=== PATIENT | male | born 1965 | race African-American/Black ===

== ENCOUNTER 2021-09-01 10:31 | Inpatient (IN) | payer BC ==
[2021-09-01] MEDS ORDERED: FENOFIBRIC ACID 45 MG CAP PO ONE (11:17)
[2021-09-01] MEDS ORDERED: DEXAMETHASONE SOD PHOSPHATE 10 MG/1 ML VIAL IVPUSH ONE (11:17)
[2021-09-01] MEDS ORDERED: BUDESONIDE 0.25 MG/2ML INH SUSP VIAL NEB ONE ×2 (11:18→14:23)
[2021-09-01] MEDS ORDERED: DEXAMETHASONE SOD PHOSPHATE 10 MG/1 ML VIAL ONE (11:33)
[2021-09-01] MEDS ORDERED: ALBUTEROL SO4 2.5/IPRATROPIUM 0.5 INH SOL 3 ML VIAL.NEB. NEB ONE (11:33)
[2021-09-01] MEDS: ALBUTEROL SO4 2.5/IPRATROPIUM 0.5 INH SOL 3 ML VIAL.NEB. NEB SCH ×4 (11:40→12:15)
[2021-09-01 13:07] LABS: VENOUS BASE EXCESS -0.7 mmol/L (-2-2); VENOUS O2 SATURATION 17.1 % (70-80); VENOUS PH 7.295 (7.310-7.410)
[2021-09-01 13:10] LABS: BASO % 0.4 % (0-2.0); HEMATOCRIT 44.9 % (35.4-49); HEMOGLOBIN 15.1 GM/dL (11.7-16.9); LYMPH % 14.7 % (8-40); MCH 29.4 pg (25.7-33.7); MCHC 33.7 g/dl (32.0-35.9); MEAN CELL VOLUME 87.3 fl (80-96); MEAN PLT VOLUME 7.8 fl (7.5-11.1); MONO % 6.4 % (3.8-10.2); NEUT % 78.5 % (42.8-82.8); PLATELET COUNT 195 10^3/uL (134-434); RBC 5.14 M/mm3 (4.00-5.60); RDW 15.5 % (11.9-15.9); WHITE BLOOD COUNT 8.4 K/mm3 (4.0-10.0)
[2021-09-01 13:17] LABS: INR 1.04 (0.83-1.09); PROTHROMBIN TIME (PATIENT) 12.2 SEC (9.7-13.0)
[2021-09-01 13:20] LABS: ACTIVATED PTT 29.7 SECONDS (25.2-36.5)
[2021-09-01] MEDS ORDERED: SODIUM CHLORIDE 0.9% 500 ML INFUS.BAG IV ONE (13:24)
[2021-09-01 13:30] LABS: CHLORIDE 100 mmol/L (98-107); SODIUM 136 mmol/L (136-145)
[2021-09-01 13:34] LABS: ALBUMIN 2.7 g/dl (3.4-5.0); ANION GAP 12 MMOL/L (8-16); CALCIUM 8.2 mg/dL (8.5-10.1); CO2 25 mmol/L (21-32)
[2021-09-01 13:35] LABS: BLOOD UREA NITROGEN 25.4 mg/dL (7-18); GLUCOSE,RANDOM 276 mg/dL (74-106); MAGNESIUM 2.9 mg/dL (1.8-2.4)
[2021-09-01 13:38] LABS: SGOT/AST 132 U/L (15-37); SGPT/ALT 111 U/L (13-61)
[2021-09-01 13:39] LABS: BILIRUBIN,TOTAL 1.1 mg/dL (0.2-1); TOT PROT 7.5 g/dl (6.4-8.2)
[2021-09-01 13:40] LABS: ALK PHOS 114 U/L (45-117)
[2021-09-01 13:43] LABS: N-TERMINAL BNP 89.7 pg/ml (5-125)
[2021-09-01] MEDS ORDERED: ACETAMINOPHEN 1000 MG/100 ML BAG IVPB ONE (14:02)
[2021-09-01] MEDS ORDERED: AZITHROMYCIN IVPB 500 MG in DEXTROSE 5%-WATER - 250 ML IVPB ONE (14:26)
[2021-09-01] MEDS ORDERED: FAMOTIDINE 20 MG/50 ML IVPB 20 MG/50 ML MG IVPB ONE ×2 (14:26→14:57)
[2021-09-01] MEDS ORDERED: ACETAMINOPHEN INJECTION 100 ML IVPB ONE (14:56)
[2021-09-01] MEDS ORDERED: AZITHROMYCIN IVPB 500 MG/250 ML BAG IVPB ONE (14:57)
[2021-09-01] MEDS ORDERED: MONTELUKAST NA 10 MG TABLET PO ONE (15:29)
[2021-09-01 15:58] LABS: EPI CELLS 14 /uL (0-25.1); HYALINE CASTS 5 /uL (0-3.1); PH,URINE 5.5 (5.0-8.0); URINE APPEARANCE CLEAR; URINE BACTERIA 28 /uL (0-1359); URINE BILIRUBIN NEGATIVE (NEGATIVE); URINE COLOR YELLOW; URINE GLUCOSE (UA) 3+ (NEGATIVE); URINE KETONE 1+ (NEGATIVE); URINE LEUK ESTERASE NEGATIVE (NEGATIVE); URINE NITRITE NEGATIVE (NEGATIVE); URINE PROTEIN 3+ (NEGATIVE); URINE RBC 9 /uL (0-23.9); URINE WBC 21 /uL (0-25.8)
[2021-09-01] MEDS ORDERED: MONTELUKAST NA 10 MG TABLET ONE (17:04)
[2021-09-01] MEDS ORDERED: SODIUM CHLORIDE 1,000 ML IV SCH ×2 (18:00)
[2021-09-01 19:17] LABS: YEAST NONE SEEN (NEGATIVE)
[2021-09-01] MEDS ORDERED: REMDESIVIR 200 MG in SODIUM CHLORIDE 250 ML IVPB ONE (21:15)
[2021-09-01] MEDS: INSULIN (LEVEMIR) 100 UNITS/ML UNITS SQ SCH (22:13)
[2021-09-01] MEDS: ATORVASTATIN CA 20 MG TABLET (FP) PO SCH (22:13)
[2021-09-01] MEDS: LABETALOL HCL 200 MG TABLET (FP) PO SCH (22:13)
[2021-09-01] MEDS: ZINC SULFATE 220 MG CAPSULE (FP) PO SCH (22:13)
[2021-09-01] MEDS: INSULIN SLIDING SCALE (NOVOLOG) 1 VIAL SQ SCH (22:14)
[2021-09-01] MEDS: ASCORBIC ACID 500 MG TABLET (FP) PO SCH (22:14)
[2021-09-01] MEDS: HEPARIN NA (PORCINE) 5,000 UNITS/ML 1ML VIAL SQ SCH (22:39)
[2021-09-02] MEDS: INSULIN SLIDING SCALE (NOVOLOG) 1 VIAL SQ SCH ×4 (06:34→21:06)
[2021-09-02] MEDS: INSULIN (LEVEMIR) 100 UNITS/ML UNITS SQ SCH ×2 (06:34→21:05)
[2021-09-02] MEDS: HEPARIN NA (PORCINE) 5,000 UNITS/ML 1ML VIAL SQ SCH ×3 (06:34→15:08)
[2021-09-02 08:10] LABS: BASO % 0.6 % (0-2.0); HEMOGLOBIN 13.4 GM/dL (11.7-16.9); LYMPH % 6.5 % (8-40); MCH 29.9 pg (25.7-33.7); MCHC 34.2 g/dl (32.0-35.9); MEAN CELL VOLUME 87.3 fl (80-96); MONO % 7.8 % (3.8-10.2); NEUT % 85.1 % (42.8-82.8); PLATELET COUNT 223 10^3/uL (134-434); RBC 4.47 M/mm3 (4.00-5.60); RDW 15.4 % (11.9-15.9); WHITE BLOOD COUNT 7.3 K/mm3 (4.0-10.0)
[2021-09-02 08:26] LABS: INR 1.01 (0.83-1.09); PROTHROMBIN TIME (PATIENT) 11.3 SEC (9.7-13.0)
[2021-09-02 08:28] LABS: ACTIVATED PTT 27.5 SECONDS (25.2-36.5)
[2021-09-02] MEDS ORDERED: ALBUTEROL SO4 HFA INHALER IH PRN (08:46)
[2021-09-02 08:53] LABS: CALCIUM 7.6 mg/dL (8.5-10.1)
[2021-09-02 08:54] LABS: ALBUMIN 2.3 g/dl (3.4-5.0); BLOOD UREA NITROGEN 34.4 mg/dL (7-18); MAGNESIUM 3.1 mg/dL (1.8-2.4)
[2021-09-02 08:57] LABS: BILIRUBIN,TOTAL 0.7 mg/dL (0.2-1); CREATININE 1.9 mg/dL (0.55-1.3); TOT PROT 6.2 g/dl (6.4-8.2)
[2021-09-02] MEDS: DEXAMETHASONE SOD PHOSPHATE 4 MG/1 ML VIAL IVPUSH SCH (09:31)
[2021-09-02] MEDS: FAMOTIDINE 20 MG/50 ML IVPB 20 MG/50 ML MG IVPB SCH ×2 (09:32→21:03)
[2021-09-02] MEDS ORDERED: DEXAMETHASONE SOD PHOSPHATE 4 MG/1 ML VIAL IVPUSH SCH (10:00)
[2021-09-02] MEDS ORDERED: CEFTRIAXONE 1 GM in DEXTROSE 5%-WATER - 50 ML IVPB SCH (10:00)
[2021-09-02] MEDS ORDERED: AZITHROMYCIN IVPB 500 MG/250 ML BAG IVPB SCH (10:00)
[2021-09-02] MEDS ORDERED: DEXTROSE 5%-WATER 100 ML IVPB ONE (10:41)
[2021-09-02] MEDS: CEFTRIAXONE 2 GM in DEXTROSE 5%-WATER 100 ML IVPB SCH (10:49)
[2021-09-02] MEDS: NAPH,MB-DB/K PH,MBDB POWDER PACKET PO SCH ×2 (10:50→21:04)
[2021-09-02] MEDS: amLODIPine BESYLATE 10 MG TABLET (FP) PO SCH (10:50)
[2021-09-02] MEDS: LABETALOL HCL 200 MG TABLET (FP) PO SCH ×2 (10:50→21:04)
[2021-09-02] MEDS: ASCORBIC ACID 500 MG TABLET (FP) PO SCH ×2 (10:50→21:04)
[2021-09-02] MEDS: ZINC SULFATE 220 MG CAPSULE (FP) PO SCH ×2 (10:50→21:04)
[2021-09-02] MEDS: AZITHROMYCIN IVPB 500 MG/250 ML BAG IVPB SCH (10:51)
[2021-09-02] MEDS: BUDESONIDE/FORMETEROL FUMARATE 160/4.5 mcg INHALER IH SCH ×2 (10:51→21:07)
[2021-09-02] MEDS: guaiFENesin 200 MG/10 ML 10 ML UNIT-DOSE CUPS PO PRN ×2 (12:24→21:04)
[2021-09-02] MEDS ORDERED: PT OWN MED DRAWER 7, Y5N ONE ×3 (13:55→22:24)
[2021-09-02] MEDS ORDERED: TOCILIZUMAB (ACTEMRA) 200 MG/10 ML VIAL IVPB ONE (15:15)
[2021-09-02] MEDS ORDERED: SODIUM CHLORIDE IVPB ONE (16:00)
[2021-09-02] MEDS ORDERED: TOCILIZUMAB IVPB ONE (16:00)
[2021-09-02] MEDS ORDERED: LIDOCAINE VISCOUS 2% ORAL/TOP 15 ML UNIT-DOSE CUP MM ONE (16:08)
[2021-09-02] MEDS ORDERED: chlorproMAZINE HCL 25 MG TABLET PO ONE (16:09)
[2021-09-02] MEDS ORDERED: LIDOCAINE VISCOUS 2% ORAL/TOP 15 ML UNIT-DOSE CUP MM PRN (16:11)
[2021-09-02] MEDS: ALBUTEROL SO4 HFA INHALER IH SCH ×2 (17:00→21:04)
[2021-09-02] MEDS: ATORVASTATIN CA 20 MG TABLET (FP) PO SCH (21:04)
[2021-09-02] MEDS: ENOXAPARIN NA (PORCINE) 40 MG/0.4 ML DISP.SYRIN SQ SCH (21:06)
[2021-09-02] MEDS: REMDESIVIR 100 MG in SODIUM CHLORIDE 250 ML IVPB SCH (21:07)
[2021-09-03] MEDS: INSULIN (LEVEMIR) 100 UNITS/ML UNITS SQ SCH ×2 (06:50→22:14)
[2021-09-03] MEDS: INSULIN SLIDING SCALE (NOVOLOG) 1 VIAL SQ SCH ×4 (06:50→22:25)
[2021-09-03] MEDS: ALBUTEROL SO4 HFA INHALER IH SCH ×4 (08:05→22:13)
[2021-09-03 08:48] LABS: BASO % 0.6 % (0-2.0); HEMATOCRIT 36.4 % (35.4-49); HEMOGLOBIN 12.4 GM/dL (11.7-16.9); LYMPH % 9.5 % (8-40); MCH 29.6 pg (25.7-33.7); MCHC 34.1 g/dl (32.0-35.9); MEAN CELL VOLUME 86.8 fl (80-96); MEAN PLT VOLUME 8.1 fl (7.5-11.1); MONO % 8.8 % (3.8-10.2); NEUT % 81.1 % (42.8-82.8); PLATELET COUNT 285 10^3/uL (134-434); RDW 15.7 % (11.9-15.9); WHITE BLOOD COUNT 6.9 K/mm3 (4.0-10.0)
[2021-09-03 09:13] LABS: ALBUMIN 2.2 g/dl (3.4-5.0); CALCIUM 7.8 mg/dL (8.5-10.1)
[2021-09-03 09:14] LABS: MAGNESIUM 3.5 mg/dL (1.8-2.4)
[2021-09-03 09:16] LABS: CREATININE 1.9 mg/dL (0.55-1.3); PHOSPHOROUS 3.5 mg/dL (2.5-4.9)
[2021-09-03 09:17] LABS: BILIRUBIN,TOTAL 0.5 mg/dL (0.2-1)
[2021-09-03] MEDS: BUDESONIDE/FORMETEROL FUMARATE 160/4.5 mcg INHALER IH SCH ×2 (09:50→22:15)
[2021-09-03] MEDS ORDERED: PT OWN MED DRAWER 7, Y5N ONE ×5 (09:54→21:48)
[2021-09-03] MEDS ORDERED: DEXTROSE 5%-WATER 100 ML IVPB ONE (09:55)
[2021-09-03] MEDS: LABETALOL HCL 200 MG TABLET (FP) PO SCH ×2 (10:22→22:14)
[2021-09-03] MEDS: DEXAMETHASONE SOD PHOSPHATE 4 MG/1 ML VIAL IVPUSH SCH (10:22)
[2021-09-03] MEDS: amLODIPine BESYLATE 10 MG TABLET (FP) PO SCH (10:22)
[2021-09-03] MEDS: ZINC SULFATE 220 MG CAPSULE (FP) PO SCH ×2 (10:22→22:14)
[2021-09-03] MEDS: ASCORBIC ACID 500 MG TABLET (FP) PO SCH ×2 (10:23→22:14)
[2021-09-03] MEDS: ENOXAPARIN NA (PORCINE) 40 MG/0.4 ML DISP.SYRIN SQ SCH ×2 (10:23→22:14)
[2021-09-03] MEDS: CEFTRIAXONE 2 GM in DEXTROSE 5%-WATER 100 ML IVPB SCH (10:23)
[2021-09-03] MEDS: FAMOTIDINE 20 MG/50 ML IVPB 20 MG/50 ML MG IVPB SCH ×2 (10:24→22:19)
[2021-09-03] MEDS: AZITHROMYCIN IVPB 500 MG/250 ML BAG IVPB SCH (10:24)
[2021-09-03] MEDS: ATORVASTATIN CA 20 MG TABLET (FP) PO SCH (22:14)
[2021-09-03] MEDS: REMDESIVIR 100 MG in SODIUM CHLORIDE 250 ML IVPB SCH (22:29)
[2021-09-04] MEDS: INSULIN (LEVEMIR) 100 UNITS/ML UNITS SQ SCH ×2 (06:52→22:05)
[2021-09-04] MEDS: INSULIN SLIDING SCALE (NOVOLOG) 1 VIAL SQ SCH ×4 (06:53→22:05)
[2021-09-04 08:14] LABS: HEMATOCRIT 38.7 % (35.4-49); HEMOGLOBIN 13.1 GM/dL (11.7-16.9); MCH 29.7 pg (25.7-33.7); MEAN CELL VOLUME 87.3 fl (80-96); PLATELET COUNT 341 10^3/uL (134-434); RBC 4.43 M/mm3 (4.00-5.60); RDW 15.6 % (11.9-15.9); WHITE BLOOD COUNT 8.8 K/mm3 (4.0-10.0)
[2021-09-04 08:43] LABS: ALBUMIN 2.2 g/dl (3.4-5.0); BLOOD UREA NITROGEN 39.5 mg/dL (7-18)
[2021-09-04 08:44] LABS: MAGNESIUM 3.3 mg/dL (1.8-2.4)
[2021-09-04 08:45] LABS: PHOSPHOROUS 2.9 mg/dL (2.5-4.9)
[2021-09-04 08:46] LABS: BILIRUBIN,TOTAL 0.5 mg/dL (0.2-1); CREATININE 1.8 mg/dL (0.55-1.3)
[2021-09-04] MEDS ORDERED: DEXTROSE 5%-WATER 100 ML IVPB ONE (09:14)
[2021-09-04] MEDS: ENOXAPARIN NA (PORCINE) 40 MG/0.4 ML DISP.SYRIN SQ SCH ×2 (09:21→22:05)
[2021-09-04] MEDS: ASCORBIC ACID 500 MG TABLET (FP) PO SCH ×3 (09:21→22:05)
[2021-09-04] MEDS: LABETALOL HCL 200 MG TABLET (FP) PO SCH ×2 (09:21→22:06)
[2021-09-04] MEDS: amLODIPine BESYLATE 10 MG TABLET (FP) PO SCH ×2 (09:21→09:38)
[2021-09-04] MEDS: ZINC SULFATE 220 MG CAPSULE (FP) PO SCH ×2 (09:21→22:04)
[2021-09-04] MEDS: DEXAMETHASONE SOD PHOSPHATE 4 MG/1 ML VIAL IVPUSH SCH (09:21)
[2021-09-04] MEDS: ALBUTEROL SO4 HFA INHALER IH SCH ×4 (09:22→22:06)
[2021-09-04] MEDS: FAMOTIDINE 20 MG/50 ML IVPB 20 MG/50 ML MG IVPB SCH ×3 (09:23→22:17)
[2021-09-04 09:27] LABS: ANISOCYTOSIS 1+; MACROCYTOSIS 0; PLATELET ESTIMATE NORMAL
[2021-09-04] MEDS: CEFTRIAXONE 2 GM in DEXTROSE 5%-WATER 100 ML IVPB SCH (09:28)
[2021-09-04] MEDS: AZITHROMYCIN IVPB 500 MG/250 ML BAG IVPB SCH (10:05)
[2021-09-04] MEDS: BUDESONIDE/FORMETEROL FUMARATE 160/4.5 mcg INHALER IH SCH ×2 (10:05→22:18)
[2021-09-04] MEDS ORDERED: PT OWN MED DRAWER 7, Y5N ONE (21:58)
[2021-09-04] MEDS: ATORVASTATIN CA 20 MG TABLET (FP) PO SCH (22:05)
[2021-09-04] MEDS: REMDESIVIR 100 MG in SODIUM CHLORIDE 250 ML IVPB SCH (22:06)
[2021-09-05] MEDS: INSULIN (LEVEMIR) 100 UNITS/ML UNITS SQ SCH ×2 (06:16→22:23)
[2021-09-05] MEDS: INSULIN SLIDING SCALE (NOVOLOG) 1 VIAL SQ SCH ×4 (06:17→22:24)
[2021-09-05 07:59] LABS: BASO % 0.6 % (0-2.0); EOS % 0.1 % (0-4.5); HEMATOCRIT 40.1 % (35.4-49); HEMOGLOBIN 13.5 GM/dL (11.7-16.9); MCH 29.7 pg (25.7-33.7); MCHC 33.7 g/dl (32.0-35.9); MEAN CELL VOLUME 88.1 fl (80-96); MEAN PLT VOLUME 7.5 fl (7.5-11.1); MONO % 8.2 % (3.8-10.2); NEUT % 81.1 % (42.8-82.8); PLATELET COUNT 377 10^3/uL (134-434); RBC 4.55 M/mm3 (4.00-5.60); RDW 15.8 % (11.9-15.9); WHITE BLOOD COUNT 10.3 K/mm3 (4.0-10.0)
[2021-09-05 08:23] LABS: ALBUMIN 2.2 g/dl (3.4-5.0); CALCIUM 8.1 mg/dL (8.5-10.1); CREATININE 1.6 mg/dL (0.55-1.3); PHOSPHOROUS 2.8 mg/dL (2.5-4.9)
[2021-09-05 08:24] LABS: BILIRUBIN,TOTAL 0.5 mg/dL (0.2-1); BLOOD UREA NITROGEN 36.8 mg/dL (7-18); MAGNESIUM 3.2 mg/dL (1.8-2.4)
[2021-09-05 08:54] LABS: ANISOCYTOSIS 0; HELMET CELLS 0; HOWELL-JOLLY BODIES 0; MACROCYTOSIS 0; OVALOCYTE 0; PLATELET ESTIMATE NORMAL; ROULEAU 0; SICKELED CELLS 0; TARGET CELLS 0; TEAR DROP CELLS 0; TOXIC GRANULATION 0
[2021-09-05] MEDS ORDERED: DEXTROSE 5%-WATER 100 ML IVPB ONE (09:44)
[2021-09-05] MEDS: DEXAMETHASONE SOD PHOSPHATE 4 MG/1 ML VIAL IVPUSH SCH (09:54)
[2021-09-05] MEDS: FAMOTIDINE 20 MG/50 ML IVPB 20 MG/50 ML MG IVPB SCH ×3 (09:54→22:44)
[2021-09-05] MEDS: ASCORBIC ACID 500 MG TABLET (FP) PO SCH ×3 (09:55→22:23)
[2021-09-05] MEDS: ALBUTEROL SO4 HFA INHALER IH SCH ×4 (09:55→20:02)
[2021-09-05] MEDS: ZINC SULFATE 220 MG CAPSULE (FP) PO SCH ×2 (09:55→22:23)
[2021-09-05] MEDS: ENOXAPARIN NA (PORCINE) 40 MG/0.4 ML DISP.SYRIN SQ SCH ×2 (09:55→22:23)
[2021-09-05] MEDS: LABETALOL HCL 200 MG TABLET (FP) PO SCH ×2 (09:57→22:23)
[2021-09-05] MEDS: amLODIPine BESYLATE 10 MG TABLET (FP) PO SCH (09:57)
[2021-09-05] MEDS: BUDESONIDE/FORMETEROL FUMARATE 160/4.5 mcg INHALER IH SCH ×2 (09:57→22:25)
[2021-09-05] MEDS: CEFTRIAXONE 2 GM in DEXTROSE 5%-WATER 100 ML IVPB SCH (10:54)
[2021-09-05] MEDS: AZITHROMYCIN IVPB 500 MG/250 ML BAG IVPB SCH (12:16)
[2021-09-05] MEDS: ATORVASTATIN CA 20 MG TABLET (FP) PO SCH (22:23)
[2021-09-05] MEDS: REMDESIVIR 100 MG in SODIUM CHLORIDE 250 ML IVPB SCH (22:24)
[2021-09-06] MEDS: INSULIN (LEVEMIR) 100 UNITS/ML UNITS SQ SCH ×2 (06:10→22:31)
[2021-09-06] MEDS: INSULIN SLIDING SCALE (NOVOLOG) 1 VIAL SQ SCH ×4 (06:11→22:32)
[2021-09-06 07:42] LABS: HEMATOCRIT 42.1 % (35.4-49); HEMOGLOBIN 14.1 GM/dL (11.7-16.9); MCH 29.3 pg (25.7-33.7); MCHC 33.6 g/dl (32.0-35.9); MEAN CELL VOLUME 87.2 fl (80-96); MEAN PLT VOLUME 7.4 fl (7.5-11.1); PLATELET COUNT 372 10^3/uL (134-434); RBC 4.82 M/mm3 (4.00-5.60); RDW 15.8 % (11.9-15.9); WHITE BLOOD COUNT 8.9 K/mm3 (4.0-10.0)
[2021-09-06 08:07] LABS: BLOOD UREA NITROGEN 35.4 mg/dL (7-18); CALCIUM 8.3 mg/dL (8.5-10.1)
[2021-09-06 08:08] LABS: ALBUMIN 2.4 g/dl (3.4-5.0); MAGNESIUM 2.9 mg/dL (1.8-2.4)
[2021-09-06 08:10] LABS: CREATININE 1.5 mg/dL (0.55-1.3)
[2021-09-06] MEDS: ALBUTEROL SO4 HFA INHALER IH SCH ×4 (08:10→22:32)
[2021-09-06 08:11] LABS: PHOSPHOROUS 3.5 mg/dL (2.5-4.9)
[2021-09-06 08:12] LABS: BILIRUBIN,TOTAL 0.5 mg/dL (0.2-1); TOT PROT 6.1 g/dl (6.4-8.2)
[2021-09-06] MEDS ORDERED: PT OWN MED DRAWER 7, Y5N ONE ×2 (09:05→10:43)
[2021-09-06] MEDS ORDERED: DEXTROSE 5%-WATER 100 ML IVPB ONE (10:12)
[2021-09-06] MEDS: CEFTRIAXONE 2 GM in DEXTROSE 5%-WATER 100 ML IVPB SCH (10:14)
[2021-09-06] MEDS: ENOXAPARIN NA (PORCINE) 40 MG/0.4 ML DISP.SYRIN SQ SCH ×2 (10:14→22:31)
[2021-09-06] MEDS: LABETALOL HCL 200 MG TABLET (FP) PO SCH ×2 (10:15→22:31)
[2021-09-06] MEDS: amLODIPine BESYLATE 10 MG TABLET (FP) PO SCH (10:15)
[2021-09-06] MEDS: ZINC SULFATE 220 MG CAPSULE (FP) PO SCH ×2 (10:15→22:31)
[2021-09-06] MEDS: DEXAMETHASONE SOD PHOSPHATE 4 MG/1 ML VIAL IVPUSH SCH (10:15)
[2021-09-06] MEDS: ASCORBIC ACID 500 MG TABLET (FP) PO SCH ×2 (10:15→22:31)
[2021-09-06] MEDS: BUDESONIDE/FORMETEROL FUMARATE 160/4.5 mcg INHALER IH SCH ×2 (10:16→22:33)
[2021-09-06 10:39] LABS: ANISOCYTOSIS 2+; MACROCYTOSIS 2+; PLATELET ESTIMATE NORMAL
[2021-09-06] MEDS: FAMOTIDINE 20 MG/50 ML IVPB 20 MG/50 ML MG IVPB SCH ×2 (11:26→22:33)
[2021-09-06] MEDS: AZITHROMYCIN IVPB 500 MG/250 ML BAG IVPB SCH (11:30)
[2021-09-06] MEDS: ATORVASTATIN CA 20 MG TABLET (FP) PO SCH (22:31)
[2021-09-07] MEDS: INSULIN (LEVEMIR) 100 UNITS/ML UNITS SQ SCH ×2 (06:58→22:08)
[2021-09-07] MEDS: INSULIN SLIDING SCALE (NOVOLOG) 1 VIAL SQ SCH ×4 (06:58→22:08)
[2021-09-07 08:13] LABS: HEMATOCRIT 44.4 % (35.4-49); HEMOGLOBIN 14.8 GM/dL (11.7-16.9); MCH 29.1 pg (25.7-33.7); MCHC 33.3 g/dl (32.0-35.9); MEAN CELL VOLUME 87.5 fl (80-96); MEAN PLT VOLUME 7.5 fl (7.5-11.1); PLATELET COUNT 363 10^3/uL (134-434); RBC 5.08 M/mm3 (4.00-5.60); RDW 15.8 % (11.9-15.9); WHITE BLOOD COUNT 8.1 K/mm3 (4.0-10.0)
[2021-09-07 08:41] LABS: ALBUMIN 2.5 g/dl (3.4-5.0)
[2021-09-07 08:43] LABS: BLOOD UREA NITROGEN 37.4 mg/dL (7-18); CALCIUM 8.3 mg/dL (8.5-10.1); MAGNESIUM 2.7 mg/dL (1.8-2.4)
[2021-09-07 08:46] LABS: CREATININE 1.7 mg/dL (0.55-1.3); PHOSPHOROUS 3.8 mg/dL (2.5-4.9)
[2021-09-07 08:47] LABS: BILIRUBIN,TOTAL 0.7 mg/dL (0.2-1)
[2021-09-07 08:48] LABS: TOT PROT 6.2 g/dl (6.4-8.2)
[2021-09-07] MEDS ORDERED: PT OWN MED DRAWER 7, Y5N ONE ×2 (09:00→21:49)
[2021-09-07] MEDS ORDERED: DEXTROSE 5%-WATER 100 ML IVPB ONE (09:01)
[2021-09-07] MEDS: amLODIPine BESYLATE 10 MG TABLET (FP) PO SCH (09:05)
[2021-09-07] MEDS: LABETALOL HCL 200 MG TABLET (FP) PO SCH ×2 (09:05→21:55)
[2021-09-07] MEDS: CEFTRIAXONE 2 GM in DEXTROSE 5%-WATER 100 ML IVPB SCH (09:05)
[2021-09-07] MEDS: ASCORBIC ACID 500 MG TABLET (FP) PO SCH ×2 (09:05→21:55)
[2021-09-07] MEDS: ZINC SULFATE 220 MG CAPSULE (FP) PO SCH ×2 (09:05→21:55)
[2021-09-07] MEDS: DEXAMETHASONE SOD PHOSPHATE 4 MG/1 ML VIAL IVPUSH SCH (09:06)
[2021-09-07] MEDS: ALBUTEROL SO4 HFA INHALER IH SCH ×4 (09:06→21:55)
[2021-09-07] MEDS: ENOXAPARIN NA (PORCINE) 40 MG/0.4 ML DISP.SYRIN SQ SCH ×2 (09:08→22:08)
[2021-09-07] MEDS: BUDESONIDE/FORMETEROL FUMARATE 160/4.5 mcg INHALER IH SCH ×2 (09:09→21:56)
[2021-09-07 09:45] LABS: ANISOCYTOSIS 1+; MACROCYTOSIS 0; PLATELET ESTIMATE NORMAL
[2021-09-07] MEDS: AZITHROMYCIN IVPB 500 MG/250 ML BAG IVPB SCH (10:34)
[2021-09-07] MEDS: FAMOTIDINE 20 MG/50 ML IVPB 20 MG/50 ML MG IVPB SCH ×2 (11:46→21:55)
[2021-09-07] MEDS: ATORVASTATIN CA 20 MG TABLET (FP) PO SCH (21:55)
[2021-09-07] MEDS: guaiFENesin 200 MG/10 ML 10 ML UNIT-DOSE CUPS PO PRN (22:08)
[2021-09-08] MEDS: INSULIN SLIDING SCALE (NOVOLOG) 1 VIAL SQ SCH ×4 (06:23→21:25)
[2021-09-08] MEDS: INSULIN (LEVEMIR) 100 UNITS/ML UNITS SQ SCH ×2 (06:23→21:21)
[2021-09-08] MEDS ORDERED: DEXTROSE 5%-WATER 100 ML IVPB ONE (10:01)
[2021-09-08] MEDS: ALBUTEROL SO4 HFA INHALER IH SCH ×4 (10:02→21:20)
[2021-09-08] MEDS: ASCORBIC ACID 500 MG TABLET (FP) PO SCH ×2 (10:03→21:19)
[2021-09-08] MEDS: ZINC SULFATE 220 MG CAPSULE (FP) PO SCH ×2 (10:03→21:19)
[2021-09-08] MEDS: CEFTRIAXONE 2 GM in DEXTROSE 5%-WATER 100 ML IVPB SCH (10:03)
[2021-09-08] MEDS: ENOXAPARIN NA (PORCINE) 40 MG/0.4 ML DISP.SYRIN SQ SCH ×2 (10:03→21:20)
[2021-09-08] MEDS: LABETALOL HCL 200 MG TABLET (FP) PO SCH ×2 (10:04→21:19)
[2021-09-08] MEDS: amLODIPine BESYLATE 10 MG TABLET (FP) PO SCH (10:04)
[2021-09-08] MEDS: DEXAMETHASONE SOD PHOSPHATE 4 MG/1 ML VIAL IVPUSH SCH (10:04)
[2021-09-08] MEDS: FAMOTIDINE 20 MG/50 ML IVPB 20 MG/50 ML MG IVPB SCH ×2 (10:33→21:20)
[2021-09-08] MEDS: BUDESONIDE/FORMETEROL FUMARATE 160/4.5 mcg INHALER IH SCH ×2 (10:33→21:19)
[2021-09-08] MEDS: AZITHROMYCIN IVPB 500 MG/250 ML BAG IVPB SCH (10:34)
[2021-09-08] MEDS ORDERED: PT OWN MED DRAWER 7, Y5N ONE (21:01)
[2021-09-08] MEDS: ATORVASTATIN CA 20 MG TABLET (FP) PO SCH (21:19)
[2021-09-09] MEDS: INSULIN (LEVEMIR) 100 UNITS/ML UNITS SQ SCH ×2 (06:21→21:42)
[2021-09-09] MEDS: INSULIN SLIDING SCALE (NOVOLOG) 1 VIAL SQ SCH ×4 (06:24→21:56)
[2021-09-09 07:59] LABS: HEMOGLOBIN 16.5 GM/dL (11.7-16.9); MCH 28.9 pg (25.7-33.7); MEAN CELL VOLUME 87.5 fl (80-96); MEAN PLT VOLUME 6.8 fl (7.5-11.1); PLATELET COUNT 306 10^3/uL (134-434); RBC 5.71 M/mm3 (4.00-5.60); RDW 16.2 % (11.9-15.9); WHITE BLOOD COUNT 8.1 K/mm3 (4.0-10.0)
[2021-09-09 08:41] LABS: CALCIUM 8.9 mg/dL (8.5-10.1)
[2021-09-09 08:42] LABS: ALBUMIN 2.6 g/dl (3.4-5.0); BLOOD UREA NITROGEN 36.4 mg/dL (7-18); MAGNESIUM 2.4 mg/dL (1.8-2.4)
[2021-09-09 08:44] LABS: PHOSPHOROUS 4.2 mg/dL (2.5-4.9)
[2021-09-09 08:45] LABS: CREATININE 1.7 mg/dL (0.55-1.3)
[2021-09-09 08:46] LABS: BILIRUBIN,TOTAL 0.8 mg/dL (0.2-1); TOT PROT 6.4 g/dl (6.4-8.2)
[2021-09-09] MEDS ORDERED: DEXTROSE 5%-WATER 100 ML IVPB ONE (09:06)
[2021-09-09] MEDS ORDERED: PT OWN MED DRAWER 7, Y5N ONE ×2 (09:06→11:35)
[2021-09-09] MEDS: CEFTRIAXONE 2 GM in DEXTROSE 5%-WATER 100 ML IVPB SCH (09:22)
[2021-09-09] MEDS: LABETALOL HCL 200 MG TABLET (FP) PO SCH ×2 (09:23→21:47)
[2021-09-09] MEDS: ALBUTEROL SO4 HFA INHALER IH SCH ×4 (09:23→21:43)
[2021-09-09] MEDS: ASCORBIC ACID 500 MG TABLET (FP) PO SCH ×2 (09:23→21:43)
[2021-09-09] MEDS: amLODIPine BESYLATE 10 MG TABLET (FP) PO SCH (09:23)
[2021-09-09] MEDS: ZINC SULFATE 220 MG CAPSULE (FP) PO SCH ×2 (09:23→21:43)
[2021-09-09] MEDS: DEXAMETHASONE SOD PHOSPHATE 4 MG/1 ML VIAL IVPUSH SCH (09:24)
[2021-09-09] MEDS: BUDESONIDE/FORMETEROL FUMARATE 160/4.5 mcg INHALER IH SCH ×2 (09:24→21:47)
[2021-09-09 10:19] LABS: ANISOCYTOSIS 0; HELMET CELLS 0; HOWELL-JOLLY BODIES 0; MACROCYTOSIS 0; OVALOCYTE 0; PLATELET ESTIMATE NORMAL; ROULEAU 0; SICKELED CELLS 0; TARGET CELLS 0; TEAR DROP CELLS 0; TOXIC GRANULATION 0
[2021-09-09] MEDS: ENOXAPARIN NA (PORCINE) 80 MG/0.8 ML DISP.SYRIN SQ SCH ×2 (10:21→21:48)
[2021-09-09] MEDS: AZITHROMYCIN IVPB 500 MG/250 ML BAG IVPB SCH (10:22)
[2021-09-09] MEDS: FAMOTIDINE/PF 20 MG/2 ML VIAL IVPB SCH (12:14)
[2021-09-09] MEDS: SODIUM ZIRCONIUM CYCLOSILICATE (LOKELMA) 10 GM PACKET PO SCH (12:32)
[2021-09-09] MEDS ORDERED: CEFTRIAXONE 2 GM-D5W BAG 2 GM/50 ML BAG IVPB SCH (16:00)
[2021-09-09] MEDS: guaiFENesin 200 MG/10 ML 10 ML UNIT-DOSE CUPS PO PRN (21:43)
[2021-09-09] MEDS: ATORVASTATIN CA 20 MG TABLET (FP) PO SCH (21:43)
[2021-09-10] MEDS: FAMOTIDINE/PF 20 MG/2 ML VIAL IVPB SCH ×3 (01:25→21:46)
[2021-09-10] MEDS: INSULIN (LEVEMIR) 100 UNITS/ML UNITS SQ SCH ×2 (06:07→21:57)
[2021-09-10] MEDS: INSULIN SLIDING SCALE (NOVOLOG) 1 VIAL SQ SCH ×4 (06:13→21:58)
[2021-09-10] MEDS: ALBUTEROL SO4 HFA INHALER IH SCH ×4 (08:34→21:45)
[2021-09-10] MEDS ORDERED: PT OWN MED DRAWER 7, Y5N ONE (09:38)
[2021-09-10] MEDS ORDERED: DEXTROSE 5%-WATER 100 ML IVPB ONE (09:39)
[2021-09-10] MEDS: ZINC SULFATE 220 MG CAPSULE (FP) PO SCH ×2 (09:43→21:47)
[2021-09-10] MEDS: ASCORBIC ACID 500 MG TABLET (FP) PO SCH ×2 (09:43→21:47)
[2021-09-10] MEDS: ENOXAPARIN NA (PORCINE) 80 MG/0.8 ML DISP.SYRIN SQ SCH ×2 (09:43→21:46)
[2021-09-10] MEDS: amLODIPine BESYLATE 10 MG TABLET (FP) PO SCH (09:44)
[2021-09-10] MEDS: LABETALOL HCL 200 MG TABLET (FP) PO SCH ×2 (09:44→21:47)
[2021-09-10] MEDS: DEXAMETHASONE SOD PHOSPHATE 4 MG/1 ML VIAL IVPUSH SCH (09:44)
[2021-09-10] MEDS: CEFTRIAXONE 2 GM in DEXTROSE 5%-WATER 2 GM/100 ML BAG IVPB SCH (09:44)
[2021-09-10] MEDS: BUDESONIDE/FORMETEROL FUMARATE 160/4.5 mcg INHALER IH SCH ×2 (09:44→21:47)
[2021-09-10] MEDS: SODIUM ZIRCONIUM CYCLOSILICATE (LOKELMA) 10 GM PACKET PO SCH (09:45)
[2021-09-10 15:43] LABS: ARTERIAL BLD GAS O2 SATURATION 94.7 % (95-98); ARTERIAL BLOOD GAS BASE EXCESS -3.7 mmol/L (-2-2); ARTERIAL BLOOD GAS pH 7.443 (7.350-7.450)
[2021-09-10 15:46] LABS: ALLENS TEST POSITIVE; VENT MODE A/C; VENT RATE 10
[2021-09-10 17:51] LABS: HEMATOCRIT 53.7 % (35.4-49); HEMOGLOBIN 17.7 GM/dL (11.7-16.9); MCH 29.3 pg (25.7-33.7); MCHC 32.9 g/dl (32.0-35.9); MEAN CELL VOLUME 88.9 fl (80-96); MEAN PLT VOLUME 8.1 fl (7.5-11.1); PLATELET COUNT 283 10^3/uL (134-434); RBC 6.04 M/mm3 (4.00-5.60); RDW 16.4 % (11.9-15.9); WHITE BLOOD COUNT 11.9 K/mm3 (4.0-10.0)
[2021-09-10 19:55] LABS: ANISOCYTOSIS 1+; MACROCYTOSIS 1+; PLATELET ESTIMATE NORMAL
[2021-09-10] MEDS: NYSTATIN 500,000 UNITS/5 ML SUSPENSION PO SCH (21:46)
[2021-09-10] MEDS: ATORVASTATIN CA 20 MG TABLET (FP) PO SCH (21:47)
[2021-09-11] MEDS: NYSTATIN 500,000 UNITS/5 ML SUSPENSION PO SCH ×4 (00:38→17:31)
[2021-09-11] MEDS: INSULIN (LEVEMIR) 100 UNITS/ML UNITS SQ SCH ×2 (06:21→21:50)
[2021-09-11] MEDS: INSULIN SLIDING SCALE (NOVOLOG) 1 VIAL SQ SCH ×4 (06:21→21:51)
[2021-09-11] MEDS: ALBUTEROL SO4 HFA INHALER IH SCH ×4 (08:06→21:40)
[2021-09-11] MEDS ORDERED: PT OWN MED DRAWER 7, Y5N ONE ×2 (09:03→10:34)
[2021-09-11] MEDS ORDERED: DEXTROSE 5%-WATER 100 ML IVPB ONE (09:03)
[2021-09-11] MEDS: CEFTRIAXONE 2 GM in DEXTROSE 5%-WATER 2 GM/100 ML BAG IVPB SCH (10:15)
[2021-09-11] MEDS: ENOXAPARIN NA (PORCINE) 80 MG/0.8 ML DISP.SYRIN SQ SCH ×2 (10:16→21:39)
[2021-09-11] MEDS: LABETALOL HCL 200 MG TABLET (FP) PO SCH ×2 (10:16→21:40)
[2021-09-11] MEDS: DEXAMETHASONE SOD PHOSPHATE 4 MG/1 ML VIAL IVPUSH SCH (10:16)
[2021-09-11] MEDS: amLODIPine BESYLATE 10 MG TABLET (FP) PO SCH (10:17)
[2021-09-11] MEDS: ASCORBIC ACID 500 MG TABLET (FP) PO SCH ×2 (10:18→21:40)
[2021-09-11] MEDS: ZINC SULFATE 220 MG CAPSULE (FP) PO SCH ×2 (10:19→21:40)
[2021-09-11] MEDS: BUDESONIDE/FORMETEROL FUMARATE 160/4.5 mcg INHALER IH SCH ×2 (10:19→21:40)
[2021-09-11] MEDS: SODIUM ZIRCONIUM CYCLOSILICATE (LOKELMA) 10 GM PACKET PO SCH (10:20)
[2021-09-11] MEDS: FAMOTIDINE/PF 20 MG/2 ML VIAL IVPB SCH ×2 (12:12→21:40)
[2021-09-11 19:00] LABS: CHLORIDE 101 mmol/L (98-107); SODIUM 137 mmol/L (136-145)
[2021-09-11 19:02] LABS: ANION GAP 10 MMOL/L (8-16); BLOOD UREA NITROGEN 40.2 mg/dL (7-18); CALCIUM 8.4 mg/dL (8.5-10.1); CO2 26 mmol/L (21-32); GLUCOSE,RANDOM 210 mg/dL (74-106)
[2021-09-11 19:06] LABS: CREATININE 1.7 mg/dL (0.55-1.3)
[2021-09-11] MEDS: ATORVASTATIN CA 20 MG TABLET (FP) PO SCH (21:52)
[2021-09-12] MEDS: NYSTATIN 500,000 UNITS/5 ML SUSPENSION PO SCH ×4 (01:28→17:11)
[2021-09-12] MEDS: INSULIN (LEVEMIR) 100 UNITS/ML UNITS SQ SCH ×2 (06:02→21:48)
[2021-09-12] MEDS: INSULIN SLIDING SCALE (NOVOLOG) 1 VIAL SQ SCH ×4 (06:03→22:13)
[2021-09-12 07:13] LABS: HEMOGLOBIN 15.9 GM/dL (11.7-16.9); MCH 28.8 pg (25.7-33.7); MCHC 33.1 g/dl (32.0-35.9); MEAN CELL VOLUME 87.1 fl (80-96); MEAN PLT VOLUME 8.3 fl (7.5-11.1); PLATELET COUNT 241 10^3/uL (134-434); RBC 5.51 M/mm3 (4.00-5.60); RDW 15.7 % (11.9-15.9); WHITE BLOOD COUNT 13.3 K/mm3 (4.0-10.0)
[2021-09-12 07:24] LABS: CHLORIDE 105 mmol/L (98-107); SODIUM 140 mmol/L (136-145)
[2021-09-12 07:26] LABS: CALCIUM 8.4 mg/dL (8.5-10.1)
[2021-09-12 07:27] LABS: ALBUMIN 2.5 g/dl (3.4-5.0); ANION GAP 10 MMOL/L (8-16); CO2 25 mmol/L (21-32); GLUCOSE,RANDOM 114 mg/dL (74-106); MAGNESIUM 2.6 mg/dL (1.8-2.4)
[2021-09-12 07:30] LABS: CREATININE 1.5 mg/dL (0.55-1.3); SGOT/AST 35 U/L (15-37); SGPT/ALT 85 U/L (13-61)
[2021-09-12 07:31] LABS: BILIRUBIN,TOTAL 0.7 mg/dL (0.2-1); LDH 924 U/L (87-246); TOT PROT 6.1 g/dl (6.4-8.2)
[2021-09-12 07:46] LABS: ALK PHOS 240 U/L (45-117)
[2021-09-12] MEDS: ALBUTEROL SO4 HFA INHALER IH SCH ×4 (08:17→21:48)
[2021-09-12 08:51] LABS: ANISOCYTOSIS 0; MACROCYTOSIS 0; PLATELET ESTIMATE NORMAL
[2021-09-12] MEDS ORDERED: PT OWN MED DRAWER 7, Y5N ONE ×2 (09:04→20:38)
[2021-09-12] MEDS ORDERED: DEXTROSE 5%-WATER 100 ML IVPB ONE (09:05)
[2021-09-12] MEDS: ENOXAPARIN NA (PORCINE) 80 MG/0.8 ML DISP.SYRIN SQ SCH ×2 (09:13→21:47)
[2021-09-12] MEDS: CEFTRIAXONE 2 GM in DEXTROSE 5%-WATER 2 GM/100 ML BAG IVPB SCH (09:13)
[2021-09-12] MEDS: LABETALOL HCL 200 MG TABLET (FP) PO SCH ×2 (09:14→21:49)
[2021-09-12] MEDS: ASCORBIC ACID 500 MG TABLET (FP) PO SCH ×2 (09:14→22:14)
[2021-09-12] MEDS: amLODIPine BESYLATE 10 MG TABLET (FP) PO SCH (09:14)
[2021-09-12] MEDS: ZINC SULFATE 220 MG CAPSULE (FP) PO SCH ×2 (09:14→21:49)
[2021-09-12] MEDS: DEXAMETHASONE SOD PHOSPHATE 4 MG/1 ML VIAL IVPUSH SCH (09:16)
[2021-09-12] MEDS: BUDESONIDE/FORMETEROL FUMARATE 160/4.5 mcg INHALER IH SCH ×2 (09:18→21:49)
[2021-09-12] MEDS: FAMOTIDINE/PF 20 MG/2 ML VIAL IVPB SCH ×2 (10:27→21:49)
[2021-09-12] MEDS: ATORVASTATIN CA 20 MG TABLET (FP) PO SCH (21:49)
[2021-09-13] MEDS: NYSTATIN 500,000 UNITS/5 ML SUSPENSION PO SCH ×5 (00:15→23:09)
[2021-09-13] MEDS: INSULIN (LEVEMIR) 100 UNITS/ML UNITS SQ SCH ×2 (06:39→21:29)
[2021-09-13] MEDS: INSULIN SLIDING SCALE (NOVOLOG) 1 VIAL SQ SCH ×4 (06:47→21:39)
[2021-09-13] MEDS: ALBUTEROL SO4 HFA INHALER IH SCH ×4 (08:23→21:29)
[2021-09-13] MEDS ORDERED: PT OWN MED DRAWER 7, Y5N ONE ×2 (09:58→21:17)
[2021-09-13] MEDS: ASCORBIC ACID 500 MG TABLET (FP) PO SCH ×2 (10:21→21:30)
[2021-09-13] MEDS: ZINC SULFATE 220 MG CAPSULE (FP) PO SCH ×2 (10:21→21:30)
[2021-09-13] MEDS: amLODIPine BESYLATE 10 MG TABLET (FP) PO SCH (10:21)
[2021-09-13] MEDS: LABETALOL HCL 200 MG TABLET (FP) PO SCH ×2 (10:21→21:30)
[2021-09-13] MEDS: ENOXAPARIN NA (PORCINE) 80 MG/0.8 ML DISP.SYRIN SQ SCH ×2 (10:22→21:30)
[2021-09-13] MEDS: DEXAMETHASONE SOD PHOSPHATE 4 MG/1 ML VIAL IVPUSH SCH (10:22)
[2021-09-13] MEDS: FAMOTIDINE/PF 20 MG/2 ML VIAL IVPB SCH ×2 (10:23→22:54)
[2021-09-13] MEDS: BUDESONIDE/FORMETEROL FUMARATE 160/4.5 mcg INHALER IH SCH ×2 (10:24→21:30)
[2021-09-13] MEDS: ATORVASTATIN CA 20 MG TABLET (FP) PO SCH (21:30)
[2021-09-14] MEDS: NYSTATIN 500,000 UNITS/5 ML SUSPENSION PO SCH ×4 (06:33→23:46)
[2021-09-14] MEDS: INSULIN (LEVEMIR) 100 UNITS/ML UNITS SQ SCH ×2 (06:33→22:05)
[2021-09-14] MEDS: INSULIN SLIDING SCALE (NOVOLOG) 1 VIAL SQ SCH ×4 (06:33→22:04)
[2021-09-14 08:34] LABS: BASO % 1.3 % (0-2.0); EOS % 0.1 % (0-4.5); HEMATOCRIT 47.8 % (35.4-49); HEMOGLOBIN 15.7 GM/dL (11.7-16.9); LYMPH % 4.3 % (8-40); MCHC 32.8 g/dl (32.0-35.9); MEAN CELL VOLUME 88.2 fl (80-96); MEAN PLT VOLUME 8.8 fl (7.5-11.1); MONO % 5.3 % (3.8-10.2); PLATELET COUNT 226 10^3/uL (134-434); RBC 5.42 M/mm3 (4.00-5.60); RDW 15.9 % (11.9-15.9); WHITE BLOOD COUNT 16.5 K/mm3 (4.0-10.0)
[2021-09-14] MEDS: ALBUTEROL SO4 HFA INHALER IH SCH ×4 (08:48→22:04)
[2021-09-14 08:57] LABS: CHLORIDE 100 mmol/L (98-107); SODIUM 136 mmol/L (136-145)
[2021-09-14 09:02] LABS: CALCIUM 8.8 mg/dL (8.5-10.1)
[2021-09-14 09:03] LABS: ALBUMIN 2.9 g/dl (3.4-5.0); ANION GAP 9 MMOL/L (8-16); BLOOD UREA NITROGEN 32.4 mg/dL (7-18); CO2 27 mmol/L (21-32); GLUCOSE,RANDOM 275 mg/dL (74-106); MAGNESIUM 2.9 mg/dL (1.8-2.4)
[2021-09-14 09:05] LABS: BILIRUBIN,TOTAL 0.8 mg/dL (0.2-1)
[2021-09-14 09:06] LABS: CREATININE 1.3 mg/dL (0.55-1.3); PHOSPHOROUS 3.4 mg/dL (2.5-4.9); SGOT/AST 55 U/L (15-37); SGPT/ALT 226 U/L (13-61)
[2021-09-14 09:08] LABS: LDH 920 U/L (87-246); TOT PROT 6.4 g/dl (6.4-8.2)
[2021-09-14 09:14] LABS: ALK PHOS 323 U/L (45-117)
[2021-09-14] MEDS ORDERED: PT OWN MED DRAWER 7, Y5N ONE ×2 (11:03→11:40)
[2021-09-14] MEDS: DEXAMETHASONE SOD PHOSPHATE 4 MG/1 ML VIAL IVPUSH SCH (11:12)
[2021-09-14] MEDS: ENOXAPARIN NA (PORCINE) 80 MG/0.8 ML DISP.SYRIN SQ SCH ×2 (11:15→21:54)
[2021-09-14] MEDS: ASCORBIC ACID 500 MG TABLET (FP) PO SCH ×3 (11:15→22:29)
[2021-09-14] MEDS: LABETALOL HCL 200 MG TABLET (FP) PO SCH ×3 (11:16→22:29)
[2021-09-14] MEDS: ZINC SULFATE 220 MG CAPSULE (FP) PO SCH ×3 (11:16→22:30)
[2021-09-14] MEDS: BUDESONIDE/FORMETEROL FUMARATE 160/4.5 mcg INHALER IH SCH ×2 (11:17→22:30)
[2021-09-14] MEDS: amLODIPine BESYLATE 10 MG TABLET (FP) PO SCH (11:17)
[2021-09-14] MEDS ORDERED: FAMOTIDINE/PF 20 MG/2 ML VIAL IVPB SCH (11:45)
[2021-09-14] MEDS: FAMOTIDINE 20 MG PREMIXED IVPB IVPB SCH ×2 (11:51→21:54)
[2021-09-14] MEDS: FAMOTIDINE/PF 20 MG/2 ML VIAL IVPB SCH (12:05)
[2021-09-14 12:13] LABS: ANISOCYTOSIS 0; HELMET CELLS 0; HOWELL-JOLLY BODIES 0; MACROCYTOSIS 0; OVALOCYTE 0; PLATELET ESTIMATE NORMAL; ROULEAU 0; SICKELED CELLS 0; TARGET CELLS 0; TEAR DROP CELLS 0; TOXIC GRANULATION 0
[2021-09-14] MEDS: SODIUM ZIRCONIUM CYCLOSILICATE (LOKELMA) 5 GM PACKET PO SCH (13:34)
[2021-09-14] MEDS: ATORVASTATIN CA 20 MG TABLET (FP) PO SCH (21:53)
[2021-09-15] MEDS: NYSTATIN 500,000 UNITS/5 ML SUSPENSION PO SCH ×3 (06:51→17:35)
[2021-09-15] MEDS: INSULIN (LEVEMIR) 100 UNITS/ML UNITS SQ SCH ×2 (06:54→21:28)
[2021-09-15] MEDS: INSULIN SLIDING SCALE (NOVOLOG) 1 VIAL SQ SCH ×4 (06:55→21:29)
[2021-09-15] MEDS: ALBUTEROL SO4 HFA INHALER IH SCH ×4 (08:48→21:47)
[2021-09-15] MEDS: LABETALOL HCL 200 MG TABLET (FP) PO SCH ×3 (09:54→22:06)
[2021-09-15] MEDS: amLODIPine BESYLATE 10 MG TABLET (FP) PO SCH (09:54)
[2021-09-15] MEDS: ASCORBIC ACID 500 MG TABLET (FP) PO SCH ×3 (09:54→22:07)
[2021-09-15] MEDS: ENOXAPARIN NA (PORCINE) 80 MG/0.8 ML DISP.SYRIN SQ SCH ×2 (09:54→21:49)
[2021-09-15] MEDS: ZINC SULFATE 220 MG CAPSULE (FP) PO SCH ×3 (09:54→22:07)
[2021-09-15] MEDS: FAMOTIDINE 20 MG PREMIXED IVPB IVPB SCH ×2 (09:55→21:49)
[2021-09-15] MEDS: DEXAMETHASONE SOD PHOSPHATE 4 MG/1 ML VIAL IVPUSH SCH (09:55)
[2021-09-15] MEDS: BUDESONIDE/FORMETEROL FUMARATE 160/4.5 mcg INHALER IH SCH ×2 (10:09→21:48)
[2021-09-15] MEDS: SODIUM ZIRCONIUM CYCLOSILICATE (LOKELMA) 5 GM PACKET PO SCH (14:08)
[2021-09-15] MEDS: ATORVASTATIN CA 20 MG TABLET (FP) PO SCH ×2 (21:49→22:07)
[2021-09-16] MEDS: NYSTATIN 500,000 UNITS/5 ML SUSPENSION PO SCH ×4 (00:01→17:20)
[2021-09-16] MEDS: INSULIN (LEVEMIR) 100 UNITS/ML UNITS SQ SCH (06:38)
[2021-09-16] MEDS: INSULIN SLIDING SCALE (NOVOLOG) 1 VIAL SQ SCH ×4 (06:39→21:24)
[2021-09-16 08:06] LABS: HEMATOCRIT 46.4 % (35.4-49); HEMOGLOBIN 15.4 GM/dL (11.7-16.9); MCHC 33.1 g/dl (32.0-35.9); MEAN CELL VOLUME 87.5 fl (80-96); MEAN PLT VOLUME 8.9 fl (7.5-11.1); PLATELET COUNT 210 10^3/uL (134-434); RBC 5.31 M/mm3 (4.00-5.60); RDW 16.3 % (11.9-15.9)
[2021-09-16] MEDS: ALBUTEROL SO4 HFA INHALER IH SCH ×3 (08:10→16:04)
[2021-09-16] MEDS ORDERED: PT OWN MED DRAWER 7, Y5N ONE (09:43)
[2021-09-16] MEDS: amLODIPine BESYLATE 10 MG TABLET (FP) PO SCH (10:04)
[2021-09-16] MEDS: LABETALOL HCL 200 MG TABLET (FP) PO SCH ×2 (10:04→21:25)
[2021-09-16] MEDS: FAMOTIDINE 20 MG PREMIXED IVPB IVPB SCH (10:04)
[2021-09-16] MEDS: SODIUM ZIRCONIUM CYCLOSILICATE (LOKELMA) 5 GM PACKET PO SCH (10:04)
[2021-09-16] MEDS: DEXAMETHASONE SOD PHOSPHATE 4 MG/1 ML VIAL IVPUSH SCH (10:05)
[2021-09-16] MEDS: ZINC SULFATE 220 MG CAPSULE (FP) PO SCH ×2 (10:05→21:25)
[2021-09-16] MEDS: ASCORBIC ACID 500 MG TABLET (FP) PO SCH ×2 (10:05→21:25)
[2021-09-16] MEDS: BUDESONIDE/FORMETEROL FUMARATE 160/4.5 mcg INHALER IH SCH ×2 (10:07→21:26)
[2021-09-16 12:18] LABS: ARTERIAL BLD GAS O2 SATURATION 86.1 % (95-98); ARTERIAL BLOOD GAS BASE EXCESS 0.3 mmol/L (-2-2); ARTERIAL BLOOD GAS PO2 48.9 mmHg (80-100); ARTERIAL BLOOD GAS pH 7.438 (7.350-7.450)
[2021-09-16 12:22] LABS: ALLENS TEST POSITIVE
[2021-09-16 13:47] LABS: MAGNESIUM 2.3 mg/dL (1.8-2.4)
[2021-09-16 13:49] LABS: CALCIUM 8.8 mg/dL (8.5-10.1)
[2021-09-16 13:50] LABS: ALBUMIN 2.6 g/dl (3.4-5.0); BLOOD UREA NITROGEN 24.4 mg/dL (7-18)
[2021-09-16 13:53] LABS: CREATININE 1.4 mg/dL (0.55-1.3)
[2021-09-16 13:54] LABS: BILIRUBIN,TOTAL 0.8 mg/dL (0.2-1); PHOSPHOROUS 3.2 mg/dL (2.5-4.9)
[2021-09-16] MEDS ORDERED: INSULIN (NOVOLOG) ASPART 100 UNITS/ML 10ML VIAL SQ ONE (14:45)
[2021-09-16] MEDS ORDERED: CALCIUM GLUCONATE 10% - 1,000 MG/10 ML VIAL IVPB ONE (14:45)
[2021-09-16] MEDS ORDERED: ENOXAPARIN NA (PORCINE) 80 MG/0.8 ML DISP.SYRIN SQ SCH ×2 (15:00→15:45)
[2021-09-16] MEDS ORDERED: DEXTROSE 50%-WATER 25 GM/50 ML DISP.SYRIN IVPUSH ONE (15:00)
[2021-09-16] MEDS ORDERED: INSULIN REGULAR HUMAN 100 UNITS/ML *VIAL IVPUSH ONE (15:03)
[2021-09-16] MEDS ORDERED: DEXTROSE 50%-WATER 25 GM/50 ML DISP.SYRIN ONE (15:08)
[2021-09-16] MEDS ORDERED: SODIUM ZIRCONIUM CYCLOSILICATE (LOKELMA) 5 GM PACKET PO ONE ×2 (16:10→20:20)
[2021-09-16] MEDS ORDERED: LORazepam 2 MG/ML SDV VIAL IVPUSH ONE (18:42)
[2021-09-16] MEDS ORDERED: guaiFENesin 200 MG/10 ML 10 ML UNIT-DOSE CUPS PO PRN (20:20)
[2021-09-16] MEDS ORDERED: LIDOCAINE VISCOUS 2% ORAL/TOP 15 ML UNIT-DOSE CUP MM PRN (20:20)
[2021-09-16] MEDS ORDERED: QUEtiapine FUMARATE 25 MG TABLET PO ONE (20:35)
[2021-09-16] MEDS: ENOXAPARIN NA (PORCINE) 80 MG/0.8 ML DISP.SYRIN SQ SCH (21:24)
[2021-09-16] MEDS: MUPIROCIN 2% TOPICAL OINTMENT FOR DECOLONIZATION NS SCH (21:26)
[2021-09-16] MEDS: FAMOTIDINE 20 MG TABLET PO SCH (21:52)
[2021-09-16] MEDS ORDERED: CHLORHEXIDINE GLUCONATE 4% CLEANSER FOR DECOLONIZATION TP SCH (22:00)
[2021-09-16] MEDS ORDERED: ATORVASTATIN CA 20 MG TABLET (FP) PO SCH (22:00)
[2021-09-16] MEDS ORDERED: FAMOTIDINE 20 MG PREMIXED IVPB IVPB SCH (22:00)
[2021-09-17] MEDS: NYSTATIN 500,000 UNITS/5 ML SUSPENSION PO SCH ×3 (00:23→13:07)
[2021-09-17 02:03] LABS: BLOOD UREA NITROGEN 30.6 mg/dL (7-18); CALCIUM 9.4 mg/dL (8.5-10.1)
[2021-09-17 02:06] LABS: CREATININE 1.2 mg/dL (0.55-1.3)
[2021-09-17] MEDS ORDERED: DEXTROSE 50%-WATER - 25 GM/50 ML VIAL IVPUSH ONE (02:30)
[2021-09-17] MEDS ORDERED: CALCIUM GLUCONATE 10% - 1,000 MG/10 ML VIAL IVPUSH ONE (02:30)
[2021-09-17] MEDS ORDERED: INSULIN REGULAR HUMAN 100 UNITS/ML *VIAL IVPUSH ONE (02:30)
[2021-09-17] MEDS ORDERED: DEXTROSE 50%-WATER 25 GM/50 ML DISP.SYRIN ONE (02:44)
[2021-09-17] MEDS ORDERED: CALCIUM GLUCONATE 10% - 1,000 MG/10 ML VIAL ONE (02:44)
[2021-09-17 06:11] LABS: BLOOD UREA NITROGEN 31.7 mg/dL (7-18); CALCIUM 9.5 mg/dL (8.5-10.1)
[2021-09-17 06:15] LABS: CREATININE 1.3 mg/dL (0.55-1.3)
[2021-09-17] MEDS: INSULIN SLIDING SCALE (NOVOLOG) 1 VIAL SQ SCH ×4 (06:42→22:00)
[2021-09-17] MEDS ORDERED: INSULIN (LEVEMIR) 100 UNITS/ML UNITS SQ SCH ×2 (07:00→20:00)
[2021-09-17 07:50] LABS: HEMATOCRIT 47.5 % (35.4-49); HEMOGLOBIN 15.6 GM/dL (11.7-16.9); MCH 29.3 pg (25.7-33.7); MCHC 32.8 g/dl (32.0-35.9); MEAN CELL VOLUME 89.3 fl (80-96); MEAN PLT VOLUME 8.6 fl (7.5-11.1); PLATELET COUNT 238 10^3/uL (134-434); RBC 5.32 M/mm3 (4.00-5.60); RDW 16.5 % (11.9-15.9)
[2021-09-17] MEDS ORDERED: ALBUTEROL SO4 HFA INHALER IH SCH (08:00)
[2021-09-17] MEDS ORDERED: PT OWN MED DRAWER 7, Y5N ONE (08:21)
[2021-09-17 08:25] LABS: ALBUMIN 2.8 g/dl (3.4-5.0); BLOOD UREA NITROGEN 32.4 mg/dL (7-18); CALCIUM 9.4 mg/dL (8.5-10.1); MAGNESIUM 2.3 mg/dL (1.8-2.4)
[2021-09-17 08:28] LABS: CREATININE 1.3 mg/dL (0.55-1.3); PHOSPHOROUS 5.2 mg/dL (2.5-4.9)
[2021-09-17 08:30] LABS: BILIRUBIN,TOTAL 1.2 mg/dL (0.2-1); TOT PROT 6.1 g/dl (6.4-8.2)
[2021-09-17] MEDS: ENOXAPARIN NA (PORCINE) 80 MG/0.8 ML DISP.SYRIN SQ SCH (09:03)
[2021-09-17] MEDS: LABETALOL HCL 200 MG TABLET (FP) PO SCH ×2 (09:04→21:45)
[2021-09-17] MEDS: ASCORBIC ACID 500 MG TABLET (FP) PO SCH ×2 (09:05→21:45)
[2021-09-17] MEDS: FAMOTIDINE 20 MG TABLET PO SCH ×2 (09:05→21:45)
[2021-09-17] MEDS: ZINC SULFATE 220 MG CAPSULE (FP) PO SCH ×2 (09:05→21:45)
[2021-09-17] MEDS: MUPIROCIN 2% TOPICAL OINTMENT FOR DECOLONIZATION NS SCH (09:06)
[2021-09-17] MEDS ORDERED: DEXAMETHASONE SOD PHOSPHATE 4 MG/1 ML VIAL IVPUSH SCH (10:00)
[2021-09-17] MEDS ORDERED: amLODIPine BESYLATE 10 MG TABLET (FP) PO SCH (10:00)
[2021-09-17] MEDS ORDERED: SODIUM ZIRCONIUM CYCLOSILICATE (LOKELMA) 10 GM PACKET PO SCH ×2 (10:00)
[2021-09-17] MEDS: BUDESONIDE/FORMETEROL FUMARATE 160/4.5 mcg INHALER IH SCH ×2 (10:51→22:35)
[2021-09-17] MEDS: POLYETHYLENE GLYCOL (HEALTHYLAX) 3350 17 GM PACKET PO SCH (16:29)
[2021-09-17] MEDS ORDERED: guaiFENesin 200 MG/10 ML 10 ML UNIT-DOSE CUPS PO PRN (18:10)
[2021-09-17] MEDS ORDERED: LIDOCAINE VISCOUS 2% ORAL/TOP 15 ML UNIT-DOSE CUP MM PRN (18:10)
[2021-09-17] MEDS ORDERED: INSULIN (NOVOLOG) ASPART 100 UNITS/ML 10ML VIAL ONE (21:38)
[2021-09-17] MEDS: ENOXAPARIN NA (PORCINE) 40 MG/0.4 ML DISP.SYRIN SQ SCH (21:44)
[2021-09-17] MEDS: ATORVASTATIN CA 20 MG TABLET (FP) PO SCH (21:45)
[2021-09-17] MEDS: DOCUSATE SODIUM 100 MG CAPSULE (FP) PO SCH (21:45)
[2021-09-17] MEDS: INSULIN (LEVEMIR) 100 UNITS/ML UNITS SQ SCH (22:00)
[2021-09-17] MEDS ORDERED: CHLORHEXIDINE GLUCONATE 4% CLEANSER FOR DECOLONIZATION TP SCH (22:00)
[2021-09-17] MEDS ORDERED: MUPIROCIN 2% TOPICAL OINTMENT FOR DECOLONIZATION NS SCH (22:00)
[2021-09-17] MEDS: ALBUTEROL SO4 HFA INHALER IH SCH (22:31)
[2021-09-18] MEDS: NYSTATIN 500,000 UNITS/5 ML SUSPENSION PO SCH ×5 (00:27→23:34)
[2021-09-18] MEDS: INSULIN SLIDING SCALE (NOVOLOG) 1 VIAL SQ SCH ×4 (06:16→22:04)
[2021-09-18] MEDS: INSULIN (LEVEMIR) 100 UNITS/ML UNITS SQ SCH ×2 (06:16→21:41)
[2021-09-18] MEDS ORDERED: INSULIN (NOVOLOG) ASPART 100 UNITS/ML 10ML VIAL ONE (06:19)
[2021-09-18 07:03] LABS: HEMATOCRIT 44.1 % (35.4-49); HEMOGLOBIN 14.8 GM/dL (11.7-16.9); MCH 29.5 pg (25.7-33.7); MCHC 33.4 g/dl (32.0-35.9); MEAN CELL VOLUME 88.2 fl (80-96); MEAN PLT VOLUME 8.8 fl (7.5-11.1); PLATELET COUNT 223 10^3/uL (134-434); RDW 16.2 % (11.9-15.9); WHITE BLOOD COUNT 18.4 K/mm3 (4.0-10.0)
[2021-09-18 07:23] LABS: CHLORIDE 104 mmol/L (98-107); SODIUM 139 mmol/L (136-145)
[2021-09-18 07:29] LABS: ANION GAP 9 MMOL/L (8-16); BLOOD UREA NITROGEN 37.3 mg/dL (7-18); CALCIUM 8.3 mg/dL (8.5-10.1); CO2 26 mmol/L (21-32)
[2021-09-18 07:30] LABS: ALBUMIN 2.5 g/dl (3.4-5.0); GLUCOSE,RANDOM 164 mg/dL (74-106)
[2021-09-18 07:33] LABS: CREATININE 1.5 mg/dL (0.55-1.3); SGOT/AST 47 U/L (15-37); SGPT/ALT 184 U/L (13-61)
[2021-09-18 07:35] LABS: TOT PROT 5.8 g/dl (6.4-8.2)
[2021-09-18 07:40] LABS: ALK PHOS 241 U/L (45-117)
[2021-09-18] MEDS: SODIUM ZIRCONIUM CYCLOSILICATE (LOKELMA) 5 GM PACKET PO SCH ×2 (10:04→10:22)
[2021-09-18] MEDS: POLYETHYLENE GLYCOL (HEALTHYLAX) 3350 17 GM PACKET PO SCH (10:05)
[2021-09-18] MEDS: FAMOTIDINE 20 MG TABLET PO SCH ×2 (10:05→21:41)
[2021-09-18] MEDS: ZINC SULFATE 220 MG CAPSULE (FP) PO SCH ×2 (10:05→21:41)
[2021-09-18] MEDS: ENOXAPARIN NA (PORCINE) 40 MG/0.4 ML DISP.SYRIN SQ SCH ×2 (10:05→21:41)
[2021-09-18] MEDS: amLODIPine BESYLATE 10 MG TABLET (FP) PO SCH (10:06)
[2021-09-18] MEDS: ASCORBIC ACID 500 MG TABLET (FP) PO SCH ×2 (10:06→21:41)
[2021-09-18] MEDS: DOCUSATE SODIUM 100 MG CAPSULE (FP) PO SCH ×2 (10:06→21:42)
[2021-09-18] MEDS: ALBUTEROL SO4 HFA INHALER IH SCH ×4 (10:06→20:46)
[2021-09-18] MEDS: BUDESONIDE/FORMETEROL FUMARATE 160/4.5 mcg INHALER IH SCH ×2 (10:07→21:44)
[2021-09-18] MEDS: LABETALOL HCL 200 MG TABLET (FP) PO SCH ×2 (10:07→21:41)
[2021-09-18 10:41] LABS: LDH 623 U/L (87-246)
[2021-09-18] MEDS: SODIUM CHLORIDE 1,000 ML IV SCH (17:00)
[2021-09-18] MEDS: ATORVASTATIN CA 20 MG TABLET (FP) PO SCH (21:41)
[2021-09-19] MEDS: NYSTATIN 500,000 UNITS/5 ML SUSPENSION PO SCH ×3 (06:33→17:43)
[2021-09-19] MEDS: INSULIN (LEVEMIR) 100 UNITS/ML UNITS SQ SCH ×2 (06:33→21:43)
[2021-09-19] MEDS: INSULIN SLIDING SCALE (NOVOLOG) 1 VIAL SQ SCH ×4 (06:33→22:30)
[2021-09-19 07:03] LABS: HEMATOCRIT 39.7 % (35.4-49); HEMOGLOBIN 13.2 GM/dL (11.7-16.9); MCH 29.6 pg (25.7-33.7); MCHC 33.3 g/dl (32.0-35.9); MEAN CELL VOLUME 88.7 fl (80-96); MEAN PLT VOLUME 8.4 fl (7.5-11.1); PLATELET COUNT 211 10^3/uL (134-434); RBC 4.47 M/mm3 (4.00-5.60); WHITE BLOOD COUNT 10.6 K/mm3 (4.0-10.0)
[2021-09-19 07:21] LABS: ALBUMIN 2.3 g/dl (3.4-5.0); BLOOD UREA NITROGEN 28.8 mg/dL (7-18)
[2021-09-19 07:24] LABS: CREATININE 1.1 mg/dL (0.55-1.3)
[2021-09-19 07:26] LABS: TOT PROT 4.8 g/dl (6.4-8.2)
[2021-09-19] MEDS ORDERED: PT OWN MED DRAWER 7, Y5N ONE ×2 (08:51→10:38)
[2021-09-19] MEDS: ALBUTEROL SO4 HFA INHALER IH SCH ×4 (09:29→22:29)
[2021-09-19] MEDS: BUDESONIDE/FORMETEROL FUMARATE 160/4.5 mcg INHALER IH SCH ×2 (09:30→23:56)
[2021-09-19] MEDS: ZINC SULFATE 220 MG CAPSULE (FP) PO SCH ×2 (09:30→21:35)
[2021-09-19] MEDS: LABETALOL HCL 200 MG TABLET (FP) PO SCH ×2 (09:30→22:15)
[2021-09-19] MEDS: DOCUSATE SODIUM 100 MG CAPSULE (FP) PO SCH ×2 (09:30→22:30)
[2021-09-19] MEDS: POLYETHYLENE GLYCOL (HEALTHYLAX) 3350 17 GM PACKET PO SCH (09:30)
[2021-09-19] MEDS: FAMOTIDINE 20 MG TABLET PO SCH ×2 (09:30→21:39)
[2021-09-19] MEDS: ENOXAPARIN NA (PORCINE) 40 MG/0.4 ML DISP.SYRIN SQ SCH ×2 (09:30→21:40)
[2021-09-19] MEDS: amLODIPine BESYLATE 10 MG TABLET (FP) PO SCH (09:30)
[2021-09-19] MEDS: SODIUM CHLORIDE 1,000 ML IV SCH (09:31)
[2021-09-19] MEDS: ASCORBIC ACID 500 MG TABLET (FP) PO SCH ×2 (09:31→21:37)
[2021-09-19] MEDS: ATORVASTATIN CA 20 MG TABLET (FP) PO SCH (21:41)
[2021-09-20] MEDS: NYSTATIN 500,000 UNITS/5 ML SUSPENSION PO SCH ×4 (01:08→17:16)
[2021-09-20] MEDS: INSULIN SLIDING SCALE (NOVOLOG) 1 VIAL SQ SCH ×4 (06:40→21:31)
[2021-09-20] MEDS: INSULIN (LEVEMIR) 100 UNITS/ML UNITS SQ SCH ×2 (06:41→21:32)
[2021-09-20 07:20] LABS: HEMATOCRIT 44.1 % (35.4-49); HEMOGLOBIN 14.4 GM/dL (11.7-16.9); MCH 28.8 pg (25.7-33.7); MCHC 32.6 g/dl (32.0-35.9); MEAN CELL VOLUME 88.5 fl (80-96); MEAN PLT VOLUME 8.3 fl (7.5-11.1); PLATELET COUNT 223 10^3/uL (134-434); RBC 4.98 M/mm3 (4.00-5.60); RDW 16.5 % (11.9-15.9)
[2021-09-20 07:32] LABS: BLOOD UREA NITROGEN 24.7 mg/dL (7-18); CALCIUM 8.5 mg/dL (8.5-10.1)
[2021-09-20 07:33] LABS: ALBUMIN 2.7 g/dl (3.4-5.0)
[2021-09-20 07:36] LABS: CREATININE 1.2 mg/dL (0.55-1.3)
[2021-09-20 07:37] LABS: BILIRUBIN,TOTAL 0.8 mg/dL (0.2-1); TOT PROT 5.8 g/dl (6.4-8.2)
[2021-09-20] MEDS: DOCUSATE SODIUM 100 MG CAPSULE (FP) PO SCH ×3 (09:46→21:33)
[2021-09-20] MEDS: POLYETHYLENE GLYCOL (HEALTHYLAX) 3350 17 GM PACKET PO SCH (09:46)
[2021-09-20] MEDS: ZINC SULFATE 220 MG CAPSULE (FP) PO SCH ×2 (09:46→21:19)
[2021-09-20] MEDS: amLODIPine BESYLATE 10 MG TABLET (FP) PO SCH (09:46)
[2021-09-20] MEDS: FAMOTIDINE 20 MG TABLET PO SCH ×2 (09:47→21:19)
[2021-09-20] MEDS: ENOXAPARIN NA (PORCINE) 40 MG/0.4 ML DISP.SYRIN SQ SCH ×2 (09:47→21:32)
[2021-09-20] MEDS: LABETALOL HCL 200 MG TABLET (FP) PO SCH ×2 (09:47→21:19)
[2021-09-20] MEDS: ALBUTEROL SO4 HFA INHALER IH SCH ×4 (09:47→20:00)
[2021-09-20] MEDS: BUDESONIDE/FORMETEROL FUMARATE 160/4.5 mcg INHALER IH SCH ×2 (09:49→21:31)
[2021-09-20] MEDS: ASCORBIC ACID 500 MG TABLET (FP) PO SCH ×2 (09:49→21:19)
[2021-09-20] MEDS: SODIUM CHLORIDE 1,000 ML IV SCH (11:38)
[2021-09-20] MEDS: DEXAMETHASONE SOD PHOSPHATE 4 MG/1 ML VIAL IVPUSH SCH (13:40)
[2021-09-20] MEDS ORDERED: PT OWN MED DRAWER 7, Y5N ONE (19:19)
[2021-09-20] MEDS: ATORVASTATIN CA 20 MG TABLET (FP) PO SCH (21:19)
[2021-09-20] MEDS ORDERED: ALPRAZolam 1 MG TABLET PO PRN (21:21)
[2021-09-20] MEDS ORDERED: ALPRAZolam 0.25 MG TABLET PO PRN (21:23)
[2021-09-21] MEDS: NYSTATIN 500,000 UNITS/5 ML SUSPENSION PO SCH ×4 (00:46→17:47)
[2021-09-21] MEDS: INSULIN SLIDING SCALE (NOVOLOG) 1 VIAL SQ SCH ×4 (06:14→21:27)
[2021-09-21] MEDS: INSULIN (LEVEMIR) 100 UNITS/ML UNITS SQ SCH ×2 (06:14→21:28)
[2021-09-21] MEDS: ALBUTEROL SO4 HFA INHALER IH SCH ×4 (08:08→20:00)
[2021-09-21] MEDS ORDERED: PT OWN MED DRAWER 7, Y5N ONE (10:46)
[2021-09-21] MEDS: DEXAMETHASONE SOD PHOSPHATE 4 MG/1 ML VIAL IVPUSH SCH (11:03)
[2021-09-21] MEDS: ASCORBIC ACID 500 MG TABLET (FP) PO SCH ×2 (11:04→21:09)
[2021-09-21] MEDS: ENOXAPARIN NA (PORCINE) 40 MG/0.4 ML DISP.SYRIN SQ SCH ×2 (11:04→21:29)
[2021-09-21] MEDS: FAMOTIDINE 20 MG TABLET PO SCH ×2 (11:04→21:09)
[2021-09-21] MEDS: LABETALOL HCL 200 MG TABLET (FP) PO SCH ×2 (11:04→21:09)
[2021-09-21] MEDS: ZINC SULFATE 220 MG CAPSULE (FP) PO SCH ×2 (11:04→21:09)
[2021-09-21] MEDS: amLODIPine BESYLATE 10 MG TABLET (FP) PO SCH (11:05)
[2021-09-21] MEDS: DOCUSATE SODIUM 100 MG CAPSULE (FP) PO SCH ×2 (11:05→21:29)
[2021-09-21] MEDS: BUDESONIDE/FORMETEROL FUMARATE 160/4.5 mcg INHALER IH SCH ×2 (11:05→21:29)
[2021-09-21] MEDS: POLYETHYLENE GLYCOL (HEALTHYLAX) 3350 17 GM PACKET PO SCH (11:05)
[2021-09-21] MEDS: ATORVASTATIN CA 20 MG TABLET (FP) PO SCH (21:09)
[2021-09-21] MEDS ORDERED: GLYCOPYRROLATE 0.2 MG/1 ML VIAL ONE (22:57)
[2021-09-21] MEDS ORDERED: SUCCINYLCHOLINE CHLORIDE 200 MG/10 ML SYRINGE ONE (22:57)
[2021-09-21] MEDS ORDERED: ETOMIDATE 20 MG/10 ML AMPUL IVPUSH ONE (22:57)
[2021-09-21] MEDS ORDERED: LIDOCAINE HCL/PF 2% SDV 5ML VIAL ONE (22:57)
[2021-09-22] MEDS ORDERED: guaiFENesin 200 MG/10 ML 10 ML UNIT-DOSE CUPS PO PRN (00:14)
[2021-09-22] MEDS ORDERED: ALPRAZolam 0.25 MG TABLET PO PRN (00:14)
[2021-09-22] MEDS ORDERED: LIDOCAINE VISCOUS 2% ORAL/TOP 15 ML UNIT-DOSE CUP MM PRN (00:14)
[2021-09-22] MEDS ORDERED: MIDAZOLAM IN 0.9 % SOD.CHLORID 1 MG/1 ML PLAST..BAG ONE (00:23)
[2021-09-22] MEDS ORDERED: MIDAZOLAM 100 MG in SODIUM CHLORIDE 100 ML IVPB SCH (00:30)
[2021-09-22] MEDS: PROPOFOL 1,000,000 MCG/100 ML VIAL IVPB SCH ×2 (00:32→10:39)
[2021-09-22] MEDS: FENTANYL NS IVPB 500 MCG/100 ML BAG IVPB SCH ×2 (00:33→10:40)
[2021-09-22] MEDS: MIDAZOLAM IN 0.9 % SOD.CHLORID 100 MG/100 ML PLAST..BAG IVPB SCH ×2 (00:49→10:39)
[2021-09-22] MEDS: VECURONIUM BROMIDE 100 MG/100 ML BAG IVPB SCH (00:49)
[2021-09-22] MEDS ORDERED: LACTATED RINGERS SOLUTION 1000 ML INFUS.BAG IV ONE (01:18)
[2021-09-22 02:09] LABS: ARTERIAL BLD GAS O2 SATURATION 95.3 % (95-98); ARTERIAL BLOOD GAS BASE EXCESS -4.6 mmol/L (-2-2); ARTERIAL BLOOD GAS PO2 102.6 mmHg (80-100)
[2021-09-22 02:11] LABS: ALLENS TEST POSITIVE; VENT MODE A/C
[2021-09-22 02:12] LABS: VENT RATE 25
[2021-09-22 02:13] LABS: ARTERIAL BLOOD GAS pH 7.122 (7.350-7.450)
[2021-09-22] MEDS ORDERED: NYSTATIN 500,000 UNITS/5 ML SUSPENSION PO SCH (06:00)
[2021-09-22 06:08] LABS: ARTERIAL BLD GAS O2 SATURATION 94.1 % (95-98); ARTERIAL BLOOD GAS BASE EXCESS -5.8 mmol/L (-2-2)
[2021-09-22 06:16] LABS: ALLENS TEST POSITIVE; VENT MODE A/C; VENT RATE 25
[2021-09-22] MEDS: INSULIN SLIDING SCALE (NOVOLOG) 1 VIAL SQ SCH ×4 (06:49→21:46)
[2021-09-22] MEDS: INSULIN (LEVEMIR) 100 UNITS/ML UNITS SQ SCH ×2 (07:30→20:36)
[2021-09-22 07:42] LABS: MAGNESIUM 2.3 mg/dL (1.8-2.4)
[2021-09-22 07:46] LABS: PHOSPHOROUS 5.8 mg/dL (2.5-4.9)
[2021-09-22] MEDS ORDERED: ALBUTEROL SO4 HFA INHALER IH SCH (08:00)
[2021-09-22] MEDS ORDERED: BUDESONIDE/FORMETEROL FUMARATE 160/4.5 mcg INHALER IH SCH (10:00)
[2021-09-22] MEDS ORDERED: LABETALOL HCL 200 MG TABLET (FP) PO SCH (10:00)
[2021-09-22] MEDS ORDERED: amLODIPine BESYLATE 10 MG TABLET (FP) PO SCH (10:00)
[2021-09-22] MEDS: MUPIROCIN 2% TOPICAL OINTMENT FOR DECOLONIZATION NS SCH ×2 (10:10→21:25)
[2021-09-22] MEDS: DOCUSATE SODIUM 100 MG CAPSULE (FP) PO SCH ×2 (10:12→21:24)
[2021-09-22] MEDS: DEXAMETHASONE SOD PHOSPHATE 4 MG/1 ML VIAL IVPUSH SCH (10:13)
[2021-09-22] MEDS: POLYETHYLENE GLYCOL (HEALTHYLAX) 3350 17 GM PACKET PO SCH (10:14)
[2021-09-22] MEDS: ENOXAPARIN NA (PORCINE) 40 MG/0.4 ML DISP.SYRIN SQ SCH ×2 (10:15→21:25)
[2021-09-22] MEDS: TETRAHYDROZOLINE HCL EYE DROPS OU SCH ×4 (10:16→21:25)
[2021-09-22] MEDS: FAMOTIDINE 20 MG TABLET PO SCH ×2 (10:16→21:25)
[2021-09-22] MEDS: ZINC SULFATE 220 MG CAPSULE (FP) PO SCH ×2 (10:16→21:24)
[2021-09-22] MEDS: ASCORBIC ACID 500 MG TABLET (FP) PO SCH ×2 (10:17→21:24)
[2021-09-22] MEDS ORDERED: PT OWN MED DRAWER 7, Y5N ONE ×2 (11:05→17:15)
[2021-09-22 12:12] LABS: CHLORIDE 108 mmol/L (98-107); SODIUM 139 mmol/L (136-145)
[2021-09-22 12:13] LABS: CALCIUM 8.4 mg/dL (8.5-10.1)
[2021-09-22 12:14] LABS: BLOOD UREA NITROGEN 32.7 mg/dL (7-18); CO2 25 mmol/L (21-32); GLUCOSE,RANDOM 173 mg/dL (74-106)
[2021-09-22 12:17] LABS: CREATININE 1.5 mg/dL (0.55-1.3)
[2021-09-22 12:23] LABS: ANION GAP 7 MMOL/L (8-16)
[2021-09-22] MEDS ORDERED: INSULIN REGULAR HUMAN 100 UNITS/ML *VIAL IVPUSH ONE (14:24)
[2021-09-22] MEDS ORDERED: DEXTROSE 50%-WATER - 25 GM/50 ML VIAL IVPUSH ONE (14:24)
[2021-09-22] MEDS ORDERED: SODIUM BICARBONATE 8.4% 50 MEQ/50 ML DISP.SYRIN IVPUSH ONE (14:24)
[2021-09-22] MEDS ORDERED: SODIUM ZIRCONIUM CYCLOSILICATE (LOKELMA) 5 GM PACKET PO SCH (14:30)
[2021-09-22] MEDS ORDERED: LACTATED RINGERS SOLUTION 1,000 ML/1,000 ML INFUS.BAG IV SCH (14:30)
[2021-09-22] MEDS ORDERED: SODIUM CHLORIDE 1,000 ML IV STA (14:44)
[2021-09-22] MEDS ORDERED: SODIUM CHLORIDE 1,000 ML IV SCH (14:45)
[2021-09-22] MEDS ORDERED: DEXTROSE 50%-WATER 25 GM/50 ML DISP.SYRIN ONE (15:28)
[2021-09-22 16:27] LABS: ARTERIAL BLD GAS O2 SATURATION 94.2 % (95-98); ARTERIAL BLOOD GAS BASE EXCESS -0.9 mmol/L (-2-2); ARTERIAL BLOOD GAS PO2 81.4 mmHg (80-100); ARTERIAL BLOOD GAS pH 7.266 (7.350-7.450)
[2021-09-22 16:30] LABS: URINE APPEARANCE CLOUDY; URINE BILIRUBIN NEGATIVE (NEGATIVE); URINE COLOR YELLOW; URINE GLUCOSE (UA) TRACE (NEGATIVE); URINE KETONE NEGATIVE (NEGATIVE); URINE LEUK ESTERASE NEGATIVE (NEGATIVE); URINE NITRITE NEGATIVE (NEGATIVE); URINE PROTEIN TRACE (NEGATIVE)
[2021-09-22 16:33] LABS: VENT MODE AC; VENT RATE 32
[2021-09-22 20:28] LABS: BLOOD UREA NITROGEN 36.2 mg/dL (7-18); CALCIUM 7.9 mg/dL (8.5-10.1)
[2021-09-22 20:32] LABS: CREATININE 1.4 mg/dL (0.55-1.3)
[2021-09-22] MEDS: ATORVASTATIN CA 20 MG TABLET (FP) PO SCH (21:24)
[2021-09-22] MEDS: CHLORHEXIDINE GLUCONATE 4% CLEANSER FOR DECOLONIZATION TP SCH (21:25)
[2021-09-22] MEDS: DEXTROSE 5%-0.45% SALINE 1,000 ML IV SCH (22:20)
[2021-09-23] MEDS: PROPOFOL 1,000,000 MCG/100 ML VIAL IVPB SCH ×2 (02:58→09:24)
[2021-09-23] MEDS: FENTANYL NS IVPB 500 MCG/100 ML BAG IVPB SCH ×4 (02:59→14:43)
[2021-09-23 06:23] LABS: BASO % 0.6 % (0-2.0); HEMATOCRIT 33.8 % (35.4-49); LYMPH % 5.9 % (8-40); MCH 29.6 pg (25.7-33.7); MCHC 32.5 g/dl (32.0-35.9); MEAN PLT VOLUME 8.4 fl (7.5-11.1); MONO % 9.4 % (3.8-10.2); NEUT % 84.1 % (42.8-82.8); PLATELET COUNT 168 10^3/uL (134-434); RBC 3.72 M/mm3 (4.00-5.60); RDW 17.4 % (11.9-15.9); WHITE BLOOD COUNT 9.8 K/mm3 (4.0-10.0)
[2021-09-23] MEDS: INSULIN (LEVEMIR) 100 UNITS/ML UNITS SQ SCH ×2 (06:28→21:00)
[2021-09-23] MEDS: INSULIN SLIDING SCALE (NOVOLOG) 1 VIAL SQ SCH ×4 (06:28→21:20)
[2021-09-23 06:41] LABS: CALCIUM 7.8 mg/dL (8.5-10.1)
[2021-09-23 06:42] LABS: BLOOD UREA NITROGEN 40.7 mg/dL (7-18)
[2021-09-23 06:47] LABS: BILIRUBIN,TOTAL 0.4 mg/dL (0.2-1); TOT PROT 5.3 g/dl (6.4-8.2)
[2021-09-23] MEDS ORDERED: INSULIN REGULAR HUMAN 100 UNITS/ML *VIAL IVPUSH ONE ×2 (07:54→16:29)
[2021-09-23] MEDS ORDERED: DEXTROSE 50%-WATER - 25 GM/50 ML VIAL IVPUSH ONE ×2 (07:54→16:29)
[2021-09-23] MEDS ORDERED: CALCIUM GLUCONATE 10% - 1,000 MG/10 ML VIAL IVPUSH ONE ×2 (07:57→16:31)
[2021-09-23] MEDS: DEXTROSE 5%-0.45% SALINE 1,000 ML IV SCH ×2 (08:00→14:41)
[2021-09-23 08:06] LABS: ALBUMIN 2.1 g/dl (3.4-5.0); CREATININE 1.3 mg/dL (0.55-1.3)
[2021-09-23] MEDS ORDERED: PT OWN MED DRAWER 7, Y5N ONE (09:19)
[2021-09-23] MEDS: MUPIROCIN 2% TOPICAL OINTMENT FOR DECOLONIZATION NS SCH ×2 (09:21→21:19)
[2021-09-23] MEDS: VECURONIUM BROMIDE 100 MG/100 ML BAG IVPB SCH (09:27)
[2021-09-23] MEDS: FAMOTIDINE 20 MG TABLET PO SCH ×2 (09:28→21:20)
[2021-09-23] MEDS: TETRAHYDROZOLINE HCL EYE DROPS OU SCH ×4 (09:29→21:20)
[2021-09-23] MEDS: MIDAZOLAM IN 0.9 % SOD.CHLORID 100 MG/100 ML PLAST..BAG IVPB SCH (09:29)
[2021-09-23] MEDS: ASCORBIC ACID 500 MG TABLET (FP) PO SCH ×2 (09:29→21:21)
[2021-09-23] MEDS: ZINC SULFATE 220 MG CAPSULE (FP) PO SCH ×2 (09:30→21:20)
[2021-09-23] MEDS: ENOXAPARIN NA (PORCINE) 40 MG/0.4 ML DISP.SYRIN SQ SCH ×2 (09:31→21:20)
[2021-09-23] MEDS: DOCUSATE SODIUM 100 MG CAPSULE (FP) PO SCH ×2 (09:31→21:20)
[2021-09-23] MEDS: DEXAMETHASONE SOD PHOSPHATE 4 MG/1 ML VIAL IVPUSH SCH (09:31)
[2021-09-23] MEDS: POLYETHYLENE GLYCOL (HEALTHYLAX) 3350 17 GM PACKET PO SCH (09:31)
[2021-09-23] MEDS ORDERED: DEXTROSE 50%-WATER 25 GM/50 ML DISP.SYRIN ONE ×2 (09:42→16:40)
[2021-09-23] MEDS ORDERED: SODIUM ZIRCONIUM CYCLOSILICATE (LOKELMA) 5 GM PACKET PO ONE (10:45)
[2021-09-23 10:53] LABS: ALLENS TEST POSITIVE; ARTERIAL BLD GAS O2 SATURATION 96.9 % (95-98); ARTERIAL BLOOD GAS BASE EXCESS -3.5 mmol/L (-2-2); ARTERIAL BLOOD GAS pH 7.249 (7.350-7.450)
[2021-09-23 10:54] LABS: VENT MODE A/C; VENT RATE 32
[2021-09-23] MEDS: PANTOPRAZOLE SODIUM 40 MG VIAL IVPUSH SCH (11:55)
[2021-09-23] MEDS ORDERED: LACTATED RINGERS SOLUTION 1000 ML INFUS.BAG IV ONE (12:50)
[2021-09-23 15:52] LABS: CALCIUM 7.4 mg/dL (8.5-10.1)
[2021-09-23 15:53] LABS: BLOOD UREA NITROGEN 38.1 mg/dL (7-18)
[2021-09-23 15:56] LABS: CREATININE 1.2 mg/dL (0.55-1.3)
[2021-09-23] MEDS: CHLORHEXIDINE GLUCONATE 4% CLEANSER FOR DECOLONIZATION TP SCH (21:20)
[2021-09-23] MEDS: ATORVASTATIN CA 20 MG TABLET (FP) PO SCH (21:20)
[2021-09-24] MEDS: INSULIN SLIDING SCALE (NOVOLOG) 1 VIAL SQ SCH ×4 (06:20→22:21)
[2021-09-24] MEDS: INSULIN (LEVEMIR) 100 UNITS/ML UNITS SQ SCH ×2 (06:20→22:21)
[2021-09-24] MEDS ORDERED: AMINO ACIDS/PROTEIN HYDROLYS 30 ML LIQUID.PKT PO SCH (08:00)
[2021-09-24] MEDS ORDERED: PT OWN MED DRAWER 7, Y5N ONE ×2 (08:06→21:13)
[2021-09-24] MEDS: FENTANYL NS IVPB 500 MCG/100 ML BAG IVPB SCH ×3 (08:07→18:00)
[2021-09-24] MEDS: DEXAMETHASONE SOD PHOSPHATE 4 MG/1 ML VIAL IVPUSH SCH (09:03)
[2021-09-24] MEDS: PANTOPRAZOLE SODIUM 40 MG VIAL IVPUSH SCH (09:03)
[2021-09-24] MEDS: FAMOTIDINE 20 MG TABLET PO SCH (09:06)
[2021-09-24] MEDS: ASCORBIC ACID 500 MG TABLET (FP) PO SCH (09:06)
[2021-09-24] MEDS: TETRAHYDROZOLINE HCL EYE DROPS OU SCH ×4 (09:06→22:22)
[2021-09-24] MEDS: MUPIROCIN 2% TOPICAL OINTMENT FOR DECOLONIZATION NS SCH ×2 (09:07→22:23)
[2021-09-24] MEDS: DOCUSATE SODIUM 100 MG CAPSULE (FP) PO SCH (09:08)
[2021-09-24] MEDS: ENOXAPARIN NA (PORCINE) 40 MG/0.4 ML DISP.SYRIN SQ SCH ×2 (09:09→21:20)
[2021-09-24] MEDS: POLYETHYLENE GLYCOL (HEALTHYLAX) 3350 17 GM PACKET PO SCH (09:09)
[2021-09-24] MEDS: ZINC SULFATE 220 MG CAPSULE (FP) PO SCH (09:10)
[2021-09-24] MEDS ORDERED: PIPERACILLIN/TAZOB 4.5 GM 4.5 GM in DEXTROSE 5%-WATER 100 ML IVPB ONE (09:45)
[2021-09-24] MEDS ORDERED: VANCOMYCIN 2,000 MG in DEXTROSE 5%-WATER - 500 ML IVPB ONE (09:47)
[2021-09-24] MEDS ORDERED: LACTATED RINGERS SOLUTION 1000 ML INFUS.BAG IV ONE (09:50)
[2021-09-24 10:29] LABS: CALCIUM 7.9 mg/dL (8.5-10.1)
[2021-09-24 10:30] LABS: ALBUMIN 1.7 g/dl (3.4-5.0); BLOOD UREA NITROGEN 34.1 mg/dL (7-18); MAGNESIUM 2.9 mg/dL (1.8-2.4)
[2021-09-24 10:33] LABS: CREATININE 1.2 mg/dL (0.55-1.3); PHOSPHOROUS 3.7 mg/dL (2.5-4.9)
[2021-09-24 10:35] LABS: BILIRUBIN,TOTAL 0.2 mg/dL (0.2-1); TOT PROT 4.8 g/dl (6.4-8.2)
[2021-09-24 10:49] LABS: ARTERIAL BLD GAS O2 SATURATION 98.2 % (95-98); ARTERIAL BLOOD GAS BASE EXCESS -4.5 mmol/L (-2-2); ARTERIAL BLOOD GAS PO2 138.9 mmHg (80-100); ARTERIAL BLOOD GAS pH 7.222 (7.350-7.450)
[2021-09-24 10:51] LABS: VENT RATE 32
[2021-09-24] MEDS ORDERED: PIPERACILLIN/TAZOBACTAM 4.5 GM VIAL IVPB ONE ×3 (11:28→21:13)
[2021-09-24] MEDS ORDERED: DEXTROSE 5%-WATER 100 ML IVPB ONE ×3 (11:28→21:13)
[2021-09-24] MEDS: MIDAZOLAM IN 0.9 % SOD.CHLORID 100 MG/100 ML PLAST..BAG IVPB SCH (11:32)
[2021-09-24] MEDS: VECURONIUM BROMIDE 100 MG/100 ML BAG IVPB SCH (13:45)
[2021-09-24] MEDS ORDERED: FAMOTIDINE 40 MG/5 ML ORAL SUSPENSION NGT SCH (14:10)
[2021-09-24] MEDS: PIPERACILLIN/TAZOB 4.5 GM 4.5 GM in DEXTROSE 5%-WATER 100 ML IVPB SCH ×2 (15:09→22:21)
[2021-09-24] MEDS: DEXTROSE 5%-0.45% SALINE 1,000 ML IV SCH (16:40)
[2021-09-24] MEDS: PROPOFOL 1,000,000 MCG/100 ML VIAL IVPB SCH (16:40)
[2021-09-24 16:46] LABS: EPI CELLS 7 /uL (0-25.1); HYALINE CASTS 1 /uL (0-3.1); PH,URINE 5.5 (5.0-8.0); URINE APPEARANCE CLEAR; URINE BACTERIA 8 /uL (0-1359); URINE BILIRUBIN NEGATIVE (NEGATIVE); URINE COLOR YELLOW; URINE GLUCOSE (UA) NEGATIVE (NEGATIVE); URINE KETONE NEGATIVE (NEGATIVE); URINE LEUK ESTERASE 1+ (NEGATIVE); URINE NITRITE NEGATIVE (NEGATIVE); URINE PROTEIN NEGATIVE (NEGATIVE); URINE RBC 35 /uL (0-23.9); URINE UROBILINOGEN 0.2 mg/dL (0.2-1.0); URINE WBC 53 /uL (0-25.8)
[2021-09-24] MEDS ORDERED: VANCOMYCIN HCL 1,500 MG in DEXTROSE 5%-WATER - 250 ML IVPB SCH (18:00)
[2021-09-24] MEDS: CHLORHEXIDINE GLUCONATE 4% CLEANSER FOR DECOLONIZATION TP SCH (21:25)
[2021-09-24] MEDS: DOCUSATE NA 100 MG/10 ML UNIT-DOSE CUPS NGT SCH (22:21)
[2021-09-24] MEDS: ZINC SULFATE 220 MG CAPSULE (FP) NGT SCH (22:22)
[2021-09-24] MEDS: ASCORBIC ACID 500 MG/5 ML UNIT DOSE CUP NGT SCH (22:22)
[2021-09-24] MEDS: ATORVASTATIN CA 20 MG TABLET (FP) NGT SCH (22:23)
[2021-09-25] MEDS: PROPOFOL 1,000,000 MCG/100 ML VIAL IVPB SCH (02:57)
[2021-09-25] MEDS: INSULIN (LEVEMIR) 100 UNITS/ML UNITS SQ SCH ×2 (06:15→21:27)
[2021-09-25] MEDS: INSULIN SLIDING SCALE (NOVOLOG) 1 VIAL SQ SCH ×4 (06:15→21:27)
[2021-09-25 06:41] LABS: ARTERIAL BLD GAS O2 SATURATION 98.3 % (95-98); ARTERIAL BLOOD GAS BASE EXCESS -0.2 mmol/L (-2-2); ARTERIAL BLOOD GAS PO2 124.2 mmHg (80-100)
[2021-09-25 06:43] LABS: VENT MODE A/C; VENT RATE 32
[2021-09-25] MEDS: MIDAZOLAM IN 0.9 % SOD.CHLORID 100 MG/100 ML PLAST..BAG IVPB SCH (08:46)
[2021-09-25 08:59] LABS: BASO % 0.2 % (0-2.0); EOS % 0.1 % (0-4.5); HEMATOCRIT 26.5 % (35.4-49); HEMOGLOBIN 8.9 GM/dL (11.7-16.9); MCH 30.4 pg (25.7-33.7); MCHC 33.8 g/dl (32.0-35.9); MEAN PLT VOLUME 9.1 fl (7.5-11.1); MONO % 11.8 % (3.8-10.2); NEUT % 81.9 % (42.8-82.8); PLATELET COUNT 165 10^3/uL (134-434); RBC 2.94 M/mm3 (4.00-5.60); RDW 17.4 % (11.9-15.9); WHITE BLOOD COUNT 8.4 K/mm3 (4.0-10.0)
[2021-09-25] MEDS ORDERED: PIPERACILLIN/TAZOB 4.5 GM 4.5 GM in DEXTROSE 5%-WATER 100 ML IVPB SCH (09:00)
[2021-09-25 09:08] LABS: ALBUMIN 1.9 g/dl (3.4-5.0); BLOOD UREA NITROGEN 32.2 mg/dL (7-18)
[2021-09-25 09:10] LABS: PHOSPHOROUS 2.7 mg/dL (2.5-4.9)
[2021-09-25 09:11] LABS: CREATININE 1.2 mg/dL (0.55-1.3)
[2021-09-25 09:12] LABS: BILIRUBIN,TOTAL 0.3 mg/dL (0.2-1)
[2021-09-25] MEDS ORDERED: PIPERACILLIN/TAZOBACTAM 4.5 GM VIAL IVPB ONE ×3 (09:48→21:20)
[2021-09-25] MEDS ORDERED: DEXTROSE 5%-WATER 100 ML IVPB ONE ×3 (09:48→21:20)
[2021-09-25] MEDS ORDERED: PT OWN MED DRAWER 7, Y5N ONE ×2 (09:48→21:20)
[2021-09-25] MEDS: MUPIROCIN 2% TOPICAL OINTMENT FOR DECOLONIZATION NS SCH ×2 (09:52→21:22)
[2021-09-25] MEDS: DOCUSATE NA 100 MG/10 ML UNIT-DOSE CUPS NGT SCH ×2 (09:53→21:24)
[2021-09-25] MEDS: FENTANYL NS IVPB 500 MCG/100 ML BAG IVPB SCH ×3 (09:53→21:26)
[2021-09-25] MEDS: ZINC SULFATE 220 MG CAPSULE (FP) NGT SCH ×2 (09:54→21:25)
[2021-09-25] MEDS: POLYETHYLENE GLYCOL (HEALTHYLAX) 3350 17 GM PACKET NGT SCH (09:54)
[2021-09-25] MEDS: ENOXAPARIN NA (PORCINE) 40 MG/0.4 ML DISP.SYRIN SQ SCH ×2 (09:54→21:25)
[2021-09-25] MEDS: AMINO ACIDS/PROTEIN HYDROLYS 30 ML LIQUID.PKT NGT SCH (09:54)
[2021-09-25] MEDS: PANTOPRAZOLE SODIUM 40 MG VIAL IVPUSH SCH (09:54)
[2021-09-25] MEDS: ASCORBIC ACID 500 MG/5 ML UNIT DOSE CUP NGT SCH ×2 (09:55→21:25)
[2021-09-25] MEDS: DEXAMETHASONE SOD PHOSPHATE 4 MG/1 ML VIAL IVPUSH SCH (09:55)
[2021-09-25] MEDS ORDERED: VANCOMYCIN PREMIX 1.5 GM 1,500 MG/300 ML BAG IVPB SCH (10:00)
[2021-09-25] MEDS: TETRAHYDROZOLINE HCL EYE DROPS OU SCH ×4 (10:02→21:30)
[2021-09-25 10:57] LABS: ANISOCYTOSIS 0; MACROCYTOSIS 0; PLATELET ESTIMATE NORMAL
[2021-09-25] MEDS: VECURONIUM BROMIDE 100 MG/100 ML BAG IVPB SCH (13:18)
[2021-09-25] MEDS: DEXTROSE 5%-0.45% SALINE 1,000 ML IV SCH (13:19)
[2021-09-25] MEDS: PIPERACILLIN/TAZOB 4.5 GM 4.5 GM in DEXTROSE 5%-WATER 100 ML IVPB SCH ×2 (15:16→21:24)
[2021-09-25] MEDS: ATORVASTATIN CA 20 MG TABLET (FP) NGT SCH (21:25)
[2021-09-25] MEDS: CHLORHEXIDINE GLUCONATE 4% CLEANSER FOR DECOLONIZATION TP SCH (21:25)
[2021-09-25] MEDS: VANCOMYCIN PREMIX 1.5 GM 1,500 MG/300 ML BAG IVPB SCH (21:26)
[2021-09-26] MEDS: PIPERACILLIN/TAZOB 4.5 GM 4.5 GM in DEXTROSE 5%-WATER 100 ML IVPB SCH ×4 (02:26→21:45)
[2021-09-26] MEDS ORDERED: PIPERACILLIN/TAZOBACTAM 4.5 GM VIAL IVPB ONE ×4 (02:27→21:32)
[2021-09-26] MEDS ORDERED: DEXTROSE 5%-WATER 100 ML IVPB ONE ×4 (02:27→21:32)
[2021-09-26] MEDS: FENTANYL NS IVPB 500 MCG/100 ML BAG IVPB SCH ×2 (03:57→11:06)
[2021-09-26] MEDS: MIDAZOLAM IN 0.9 % SOD.CHLORID 100 MG/100 ML PLAST..BAG IVPB SCH (03:57)
[2021-09-26] MEDS: PROPOFOL 1,000,000 MCG/100 ML VIAL IVPB SCH ×3 (03:58→18:17)
[2021-09-26 06:23] LABS: ARTERIAL BLD GAS O2 SATURATION 94.4 % (95-98); ARTERIAL BLOOD GAS BASE EXCESS -0.9 mmol/L (-2-2); ARTERIAL BLOOD GAS PO2 76.1 mmHg (80-100); ARTERIAL BLOOD GAS pH 7.339 (7.350-7.450)
[2021-09-26 06:24] LABS: ALLENS TEST POSITIVE; VENT MODE A/C; VENT RATE 32
[2021-09-26] MEDS: INSULIN (LEVEMIR) 100 UNITS/ML UNITS SQ SCH ×2 (06:46→22:02)
[2021-09-26] MEDS: INSULIN SLIDING SCALE (NOVOLOG) 1 VIAL SQ SCH ×5 (06:47→22:03)
[2021-09-26 07:35] LABS: HEMATOCRIT 27.6 % (35.4-49); HEMOGLOBIN 9.1 GM/dL (11.7-16.9); MCH 29.4 pg (25.7-33.7); MCHC 33.1 g/dl (32.0-35.9); MEAN CELL VOLUME 88.9 fl (80-96); MEAN PLT VOLUME 8.5 fl (7.5-11.1); PLATELET COUNT 186 10^3/uL (134-434); RDW 17.2 % (11.9-15.9); WHITE BLOOD COUNT 8.5 K/mm3 (4.0-10.0)
[2021-09-26 07:45] LABS: ALBUMIN 1.9 g/dl (3.4-5.0); BLOOD UREA NITROGEN 27.3 mg/dL (7-18); CALCIUM 7.9 mg/dL (8.5-10.1); MAGNESIUM 2.8 mg/dL (1.8-2.4)
[2021-09-26 07:48] LABS: CREATININE 1.2 mg/dL (0.55-1.3); PHOSPHOROUS 2.9 mg/dL (2.5-4.9)
[2021-09-26 07:50] LABS: BILIRUBIN,TOTAL 0.4 mg/dL (0.2-1); TOT PROT 5.2 g/dl (6.4-8.2)
[2021-09-26] MEDS: AMINO ACIDS/PROTEIN HYDROLYS 30 ML LIQUID.PKT NGT SCH (08:55)
[2021-09-26] MEDS ORDERED: LABETALOL HCL 5 MG/1 ML (100MG/20 ML VIAL) IVPUSH ONE (10:01)
[2021-09-26 10:55] LABS: ANISOCYTOSIS 0; MACROCYTOSIS 0; PLATELET ESTIMATE NORMAL
[2021-09-26] MEDS: PANTOPRAZOLE SODIUM 40 MG VIAL IVPUSH SCH (10:55)
[2021-09-26] MEDS: TETRAHYDROZOLINE HCL EYE DROPS OU SCH ×4 (10:55→21:46)
[2021-09-26] MEDS: DOCUSATE NA 100 MG/10 ML UNIT-DOSE CUPS NGT SCH ×2 (10:55→21:46)
[2021-09-26] MEDS: ZINC SULFATE 220 MG CAPSULE (FP) NGT SCH ×2 (10:55→21:46)
[2021-09-26] MEDS: ENOXAPARIN NA (PORCINE) 40 MG/0.4 ML DISP.SYRIN SQ SCH ×2 (10:55→21:46)
[2021-09-26] MEDS: ASCORBIC ACID 500 MG/5 ML UNIT DOSE CUP NGT SCH ×2 (10:55→21:46)
[2021-09-26] MEDS: DEXAMETHASONE SOD PHOSPHATE 4 MG/1 ML VIAL IVPUSH SCH (10:55)
[2021-09-26] MEDS: POLYETHYLENE GLYCOL (HEALTHYLAX) 3350 17 GM PACKET NGT SCH (10:55)
[2021-09-26] MEDS: MUPIROCIN 2% TOPICAL OINTMENT FOR DECOLONIZATION NS SCH ×2 (10:55→22:02)
[2021-09-26] MEDS: DEXTROSE 5%-0.45% SALINE 1,000 ML IV SCH (11:13)
[2021-09-26] MEDS ORDERED: PT OWN MED DRAWER 7, Y5N ONE ×3 (11:20→22:23)
[2021-09-26] MEDS: VANCOMYCIN PREMIX 1.5 GM 1,500 MG/300 ML BAG IVPB SCH ×2 (13:18→22:24)
[2021-09-26 14:12] VITALS: BMI 28.5
[2021-09-26] MEDS: ATORVASTATIN CA 20 MG TABLET (FP) NGT SCH (21:46)
[2021-09-26] MEDS: CHLORHEXIDINE GLUCONATE 4% CLEANSER FOR DECOLONIZATION TP SCH (22:40)
[2021-09-27] MEDS: MIDAZOLAM IN 0.9 % SOD.CHLORID 100 MG/100 ML PLAST..BAG IVPB SCH ×2 (00:05→11:29)
[2021-09-27] MEDS ORDERED: DEXTROSE 5%-WATER 100 ML IVPB ONE ×4 (03:04→22:39)
[2021-09-27] MEDS ORDERED: PIPERACILLIN/TAZOBACTAM 4.5 GM VIAL IVPB ONE ×4 (03:04→22:39)
[2021-09-27] MEDS: PIPERACILLIN/TAZOB 4.5 GM 4.5 GM in DEXTROSE 5%-WATER 100 ML IVPB SCH ×4 (03:07→22:57)
[2021-09-27] MEDS: PROPOFOL 1,000,000 MCG/100 ML VIAL IVPB SCH ×3 (03:07→18:03)
[2021-09-27] MEDS: FENTANYL NS IVPB 500 MCG/100 ML BAG IVPB SCH ×3 (03:08→18:03)
[2021-09-27] MEDS: INSULIN (LEVEMIR) 100 UNITS/ML UNITS SQ SCH ×2 (06:25→22:00)
[2021-09-27] MEDS: INSULIN SLIDING SCALE (NOVOLOG) 1 VIAL SQ SCH ×4 (06:26→23:13)
[2021-09-27 06:57] LABS: HEMATOCRIT 30.9 % (35.4-49); HEMOGLOBIN 10.1 GM/dL (11.7-16.9); MCH 29.5 pg (25.7-33.7); MCHC 32.7 g/dl (32.0-35.9); MEAN PLT VOLUME 8.4 fl (7.5-11.1); PLATELET COUNT 226 10^3/uL (134-434); RBC 3.43 M/mm3 (4.00-5.60); RDW 17.6 % (11.9-15.9); WHITE BLOOD COUNT 10.6 K/mm3 (4.0-10.0)
[2021-09-27 07:16] LABS: BLOOD UREA NITROGEN 28.9 mg/dL (7-18)
[2021-09-27 07:17] LABS: CALCIUM 8.4 mg/dL (8.5-10.1); MAGNESIUM 2.6 mg/dL (1.8-2.4)
[2021-09-27 07:19] LABS: PHOSPHOROUS 2.7 mg/dL (2.5-4.9)
[2021-09-27 07:21] LABS: BILIRUBIN,TOTAL 0.4 mg/dL (0.2-1); CREATININE 1.2 mg/dL (0.55-1.3); TOT PROT 5.7 g/dl (6.4-8.2)
[2021-09-27] MEDS: AMINO ACIDS/PROTEIN HYDROLYS 30 ML LIQUID.PKT NGT SCH (08:55)
[2021-09-27 09:47] LABS: ANISOCYTOSIS 1+; MACROCYTOSIS 1+; OVALOCYTE 1+; PLATELET ESTIMATE NORMAL
[2021-09-27] MEDS: VANCOMYCIN PREMIX 1.5 GM 1,500 MG/300 ML BAG IVPB SCH ×2 (10:55→22:57)
[2021-09-27] MEDS: PANTOPRAZOLE SODIUM 40 MG VIAL IVPUSH SCH (10:55)
[2021-09-27] MEDS: TETRAHYDROZOLINE HCL EYE DROPS OU SCH ×4 (10:55→22:58)
[2021-09-27] MEDS: DOCUSATE NA 100 MG/10 ML UNIT-DOSE CUPS NGT SCH ×2 (10:55→22:57)
[2021-09-27] MEDS: POLYETHYLENE GLYCOL (HEALTHYLAX) 3350 17 GM PACKET NGT SCH (10:55)
[2021-09-27] MEDS: ZINC SULFATE 220 MG CAPSULE (FP) NGT SCH ×2 (10:55→22:57)
[2021-09-27] MEDS: DEXAMETHASONE SOD PHOSPHATE 4 MG/1 ML VIAL IVPUSH SCH (10:55)
[2021-09-27] MEDS: ASCORBIC ACID 500 MG/5 ML UNIT DOSE CUP NGT SCH ×2 (10:55→22:57)
[2021-09-27] MEDS: ENOXAPARIN NA (PORCINE) 40 MG/0.4 ML DISP.SYRIN SQ SCH ×2 (11:00→22:58)
[2021-09-27] MEDS ORDERED: PT OWN MED DRAWER 7, Y5N ONE ×2 (11:03→22:39)
[2021-09-27] MEDS: ATORVASTATIN CA 20 MG TABLET (FP) NGT SCH (22:57)
[2021-09-27] MEDS: CHLORHEXIDINE GLUCONATE 4% CLEANSER FOR DECOLONIZATION TP SCH (22:58)
[2021-09-28] MEDS ORDERED: DEXTROSE 5%-WATER 100 ML IVPB ONE ×4 (02:39→22:15)
[2021-09-28] MEDS ORDERED: PIPERACILLIN/TAZOBACTAM 4.5 GM VIAL IVPB ONE ×4 (02:39→22:15)
[2021-09-28] MEDS: PIPERACILLIN/TAZOB 4.5 GM 4.5 GM in DEXTROSE 5%-WATER 100 ML IVPB SCH ×4 (02:40→22:25)
[2021-09-28] MEDS ORDERED: FENTANYL NS IVPB 500 MCG/100 ML BAG IVPB ONE (03:05)
[2021-09-28] MEDS: PROPOFOL 1,000,000 MCG/100 ML VIAL IVPB SCH ×2 (04:15→22:27)
[2021-09-28] MEDS: MIDAZOLAM IN 0.9 % SOD.CHLORID 100 MG/100 ML PLAST..BAG IVPB SCH ×2 (04:15→22:26)
[2021-09-28] MEDS ORDERED: ACETAMINOPHEN 1000 MG/100 ML BAG IVPB ONE ×2 (04:57→23:45)
[2021-09-28] MEDS: INSULIN (LEVEMIR) 100 UNITS/ML UNITS SQ SCH ×2 (06:37→22:26)
[2021-09-28] MEDS: INSULIN SLIDING SCALE (NOVOLOG) 1 VIAL SQ SCH ×4 (06:38→22:35)
[2021-09-28 07:43] LABS: CALCIUM 8.4 mg/dL (8.5-10.1)
[2021-09-28 07:44] LABS: BLOOD UREA NITROGEN 27.6 mg/dL (7-18)
[2021-09-28 07:45] LABS: ALBUMIN 1.8 g/dl (3.4-5.0)
[2021-09-28 07:47] LABS: CREATININE 1.1 mg/dL (0.55-1.3); MAGNESIUM 2.4 mg/dL (1.8-2.4); PHOSPHOROUS 3.3 mg/dL (2.5-4.9)
[2021-09-28 07:48] LABS: BILIRUBIN,TOTAL 0.7 mg/dL (0.2-1); TOT PROT 5.6 g/dl (6.4-8.2)
[2021-09-28 08:07] LABS: HEMATOCRIT 31.4 % (35.4-49); HEMOGLOBIN 10.3 GM/dL (11.7-16.9); MCH 29.3 pg (25.7-33.7); MCHC 32.9 g/dl (32.0-35.9); MEAN CELL VOLUME 89.1 fl (80-96); MEAN PLT VOLUME 8.3 fl (7.5-11.1); PLATELET COUNT 257 10^3/uL (134-434); RBC 3.52 M/mm3 (4.00-5.60); RDW 17.7 % (11.9-15.9); WHITE BLOOD COUNT 9.4 K/mm3 (4.0-10.0)
[2021-09-28] MEDS: AMINO ACIDS/PROTEIN HYDROLYS 30 ML LIQUID.PKT NGT SCH (08:19)
[2021-09-28] MEDS ORDERED: PT OWN MED DRAWER 7, Y5N ONE ×2 (08:47→22:16)
[2021-09-28] MEDS: VANCOMYCIN PREMIX 1.5 GM 1,500 MG/300 ML BAG IVPB SCH (09:38)
[2021-09-28] MEDS: PANTOPRAZOLE SODIUM 40 MG VIAL IVPUSH SCH (09:40)
[2021-09-28] MEDS: DEXAMETHASONE SOD PHOSPHATE 4 MG/1 ML VIAL IVPUSH SCH (09:40)
[2021-09-28] MEDS: ENOXAPARIN NA (PORCINE) 40 MG/0.4 ML DISP.SYRIN SQ SCH ×2 (09:40→22:27)
[2021-09-28] MEDS: DOCUSATE NA 100 MG/10 ML UNIT-DOSE CUPS NGT SCH ×2 (09:40→22:24)
[2021-09-28] MEDS: ZINC SULFATE 220 MG CAPSULE (FP) NGT SCH ×2 (09:41→22:24)
[2021-09-28] MEDS: POLYETHYLENE GLYCOL (HEALTHYLAX) 3350 17 GM PACKET NGT SCH (09:41)
[2021-09-28] MEDS: ASCORBIC ACID 500 MG/5 ML UNIT DOSE CUP NGT SCH ×2 (09:41→22:25)
[2021-09-28] MEDS: TETRAHYDROZOLINE HCL EYE DROPS OU SCH ×4 (09:43→22:26)
[2021-09-28] MEDS: ATORVASTATIN CA 20 MG TABLET (FP) NGT SCH (22:24)
[2021-09-28] MEDS: CHLORHEXIDINE GLUCONATE 4% CLEANSER FOR DECOLONIZATION TP SCH (22:27)
[2021-09-28] MEDS: FENTANYL NS IVPB 500 MCG/100 ML BAG IVPB SCH ×2 (22:28)
[2021-09-29] MEDS ORDERED: PIPERACILLIN/TAZOBACTAM 4.5 GM VIAL IVPB ONE ×4 (01:58→20:48)
[2021-09-29] MEDS ORDERED: DEXTROSE 5%-WATER 100 ML IVPB ONE ×4 (01:58→20:48)
[2021-09-29] MEDS: PIPERACILLIN/TAZOB 4.5 GM 4.5 GM in DEXTROSE 5%-WATER 100 ML IVPB SCH ×4 (02:15→21:33)
[2021-09-29] MEDS: INSULIN (LEVEMIR) 100 UNITS/ML UNITS SQ SCH ×2 (06:38→21:31)
[2021-09-29] MEDS: INSULIN SLIDING SCALE (NOVOLOG) 1 VIAL SQ SCH ×4 (06:39→21:31)
[2021-09-29 07:03] LABS: BASO % 0.2 % (0-2.0); EOS % 2.9 % (0-4.5); HEMATOCRIT 26.9 % (35.4-49); HEMOGLOBIN 8.9 GM/dL (11.7-16.9); LYMPH % 8.8 % (8-40); MCH 29.5 pg (25.7-33.7); MCHC 33.3 g/dl (32.0-35.9); MEAN CELL VOLUME 88.5 fl (80-96); MEAN PLT VOLUME 8.2 fl (7.5-11.1); MONO % 8.9 % (3.8-10.2); NEUT % 79.2 % (42.8-82.8); PLATELET COUNT 274 10^3/uL (134-434); RBC 3.04 M/mm3 (4.00-5.60); RDW 17.9 % (11.9-15.9); WHITE BLOOD COUNT 9.7 K/mm3 (4.0-10.0)
[2021-09-29 08:17] LABS: ALBUMIN 1.6 g/dl (3.4-5.0); BLOOD UREA NITROGEN 29.5 mg/dL (7-18); CALCIUM 8.1 mg/dL (8.5-10.1)
[2021-09-29 08:19] LABS: MAGNESIUM 2.4 mg/dL (1.8-2.4)
[2021-09-29 08:20] LABS: CREATININE 1.2 mg/dL (0.55-1.3); PHOSPHOROUS 2.8 mg/dL (2.5-4.9)
[2021-09-29 08:22] LABS: BILIRUBIN,TOTAL 0.7 mg/dL (0.2-1); TOT PROT 5.5 g/dl (6.4-8.2)
[2021-09-29] MEDS ORDERED: MIDAZOLAM 100 MG in SODIUM CHLORIDE 100 ML IVPB SCH (08:30)
[2021-09-29] MEDS ORDERED: PT OWN MED DRAWER 7, Y5N ONE (08:36)
[2021-09-29] MEDS: FENTANYL NS IVPB 500 MCG/100 ML BAG IVPB SCH ×3 (08:44→21:34)
[2021-09-29] MEDS: AMINO ACIDS/PROTEIN HYDROLYS 30 ML LIQUID.PKT NGT SCH (08:52)
[2021-09-29] MEDS: DOCUSATE NA 100 MG/10 ML UNIT-DOSE CUPS NGT SCH ×2 (09:00→21:33)
[2021-09-29] MEDS: DEXAMETHASONE SOD PHOSPHATE 4 MG/1 ML VIAL IVPUSH SCH (09:00)
[2021-09-29] MEDS: ZINC SULFATE 220 MG CAPSULE (FP) NGT SCH ×2 (09:01→21:33)
[2021-09-29] MEDS: PANTOPRAZOLE SODIUM 40 MG VIAL IVPUSH SCH (09:01)
[2021-09-29] MEDS: ASCORBIC ACID 500 MG/5 ML UNIT DOSE CUP NGT SCH ×2 (09:01→21:34)
[2021-09-29] MEDS: POLYETHYLENE GLYCOL (HEALTHYLAX) 3350 17 GM PACKET NGT SCH (09:01)
[2021-09-29] MEDS: ENOXAPARIN NA (PORCINE) 40 MG/0.4 ML DISP.SYRIN SQ SCH ×2 (09:01→21:33)
[2021-09-29] MEDS: TETRAHYDROZOLINE HCL EYE DROPS OU SCH ×4 (09:01→21:34)
[2021-09-29] MEDS: PROPOFOL 1,000,000 MCG/100 ML VIAL IVPB SCH ×4 (09:31→21:34)
[2021-09-29 14:50] LABS: EPI CELLS 33 /uL (0-25.1); HYALINE CASTS 3 /uL (0-3.1); URINE APPEARANCE CLEAR; URINE BACTERIA 60 /uL (0-1359); URINE BILIRUBIN NEGATIVE (NEGATIVE); URINE COLOR YELLOW; URINE GLUCOSE (UA) NEGATIVE (NEGATIVE); URINE KETONE NEGATIVE (NEGATIVE); URINE LEUK ESTERASE 1+ (NEGATIVE); URINE NITRITE NEGATIVE (NEGATIVE); URINE PROTEIN 1+ (NEGATIVE); URINE WBC 90 /uL (0-25.8)
[2021-09-29] MEDS ORDERED: MIDAZOLAM IN 0.9 % SOD.CHLORID 1 MG/1 ML PLAST..BAG ONE (16:07)
[2021-09-29] MEDS: MIDAZOLAM IN 0.9 % SOD.CHLORID 100 MG/100 ML PLAST..BAG IVPB SCH (16:10)
[2021-09-29 18:00] LABS: URINE RBC 674.3 /uL (0-23.9)
[2021-09-29] MEDS: CHLORHEXIDINE GLUCONATE 4% CLEANSER FOR DECOLONIZATION TP SCH (21:33)
[2021-09-29] MEDS: ATORVASTATIN CA 20 MG TABLET (FP) NGT SCH (21:33)
[2021-09-30] MEDS ORDERED: MIDAZOLAM IN 0.9 % SOD.CHLORID 1 MG/1 ML PLAST..BAG ONE (02:39)
[2021-09-30] MEDS ORDERED: DEXTROSE 5%-WATER 100 ML IVPB ONE ×4 (02:41→21:51)
[2021-09-30] MEDS ORDERED: PIPERACILLIN/TAZOBACTAM 4.5 GM VIAL IVPB ONE ×4 (02:41→21:50)
[2021-09-30] MEDS: PIPERACILLIN/TAZOB 4.5 GM 4.5 GM in DEXTROSE 5%-WATER 100 ML IVPB SCH ×4 (03:00→21:53)
[2021-09-30] MEDS: FENTANYL NS IVPB 500 MCG/100 ML BAG IVPB SCH ×6 (03:01→22:00)
[2021-09-30] MEDS: PROPOFOL 1,000,000 MCG/100 ML VIAL IVPB SCH ×5 (03:01→21:00)
[2021-09-30] MEDS: MIDAZOLAM IN 0.9 % SOD.CHLORID 100 MG/100 ML PLAST..BAG IVPB SCH ×2 (04:00→14:27)
[2021-09-30] MEDS: INSULIN (LEVEMIR) 100 UNITS/ML UNITS SQ SCH ×2 (06:36→22:08)
[2021-09-30] MEDS: INSULIN SLIDING SCALE (NOVOLOG) 1 VIAL SQ SCH ×4 (06:36→22:08)
[2021-09-30 06:37] LABS: ARTERIAL BLD GAS O2 SATURATION 98.8 % (95-98); ARTERIAL BLOOD GAS BASE EXCESS 1.7 mmol/L (-2-2); ARTERIAL BLOOD GAS PO2 135.5 mmHg (80-100); ARTERIAL BLOOD GAS pH 7.427 (7.350-7.450)
[2021-09-30 06:54] LABS: VENT MODE V-A/C; VENT RATE 32
[2021-09-30 07:12] LABS: HEMATOCRIT 24.2 % (35.4-49); HEMOGLOBIN 8.1 GM/dL (11.7-16.9); MCHC 33.5 g/dl (32.0-35.9); MEAN CELL VOLUME 89.6 fl (80-96); MEAN PLT VOLUME 8.7 fl (7.5-11.1); PLATELET COUNT 271 10^3/uL (134-434); RDW 17.8 % (11.9-15.9); WHITE BLOOD COUNT 5.9 K/mm3 (4.0-10.0)
[2021-09-30 07:22] LABS: BLOOD UREA NITROGEN 32.7 mg/dL (7-18); MAGNESIUM 2.6 mg/dL (1.8-2.4)
[2021-09-30 07:24] LABS: PHOSPHOROUS 3.4 mg/dL (2.5-4.9)
[2021-09-30 07:25] LABS: CREATININE 1.3 mg/dL (0.55-1.3)
[2021-09-30] MEDS: AMINO ACIDS/PROTEIN HYDROLYS 30 ML LIQUID.PKT NGT SCH ×2 (08:45→17:26)
[2021-09-30] MEDS ORDERED: PT OWN MED DRAWER 7, Y5N ONE (09:44)
[2021-09-30] MEDS: ASCORBIC ACID 500 MG/5 ML UNIT DOSE CUP NGT SCH ×2 (10:27→21:55)
[2021-09-30] MEDS: TETRAHYDROZOLINE HCL EYE DROPS OU SCH ×4 (10:27→21:56)
[2021-09-30] MEDS: PANTOPRAZOLE SODIUM 40 MG VIAL IVPUSH SCH (10:28)
[2021-09-30] MEDS: DEXAMETHASONE SOD PHOSPHATE 4 MG/1 ML VIAL IVPUSH SCH (10:28)
[2021-09-30] MEDS: DOCUSATE NA 100 MG/10 ML UNIT-DOSE CUPS NGT SCH ×2 (10:28→21:55)
[2021-09-30] MEDS: ENOXAPARIN NA (PORCINE) 40 MG/0.4 ML DISP.SYRIN SQ SCH ×2 (10:28→21:56)
[2021-09-30] MEDS: POLYETHYLENE GLYCOL (HEALTHYLAX) 3350 17 GM PACKET NGT SCH (10:28)
[2021-09-30] MEDS: ZINC SULFATE 220 MG CAPSULE (FP) NGT SCH ×2 (10:55→21:56)
[2021-09-30] MEDS: CHLORHEXIDINE GLUCONATE 4% CLEANSER FOR DECOLONIZATION TP SCH (21:56)
[2021-09-30] MEDS: ATORVASTATIN CA 20 MG TABLET (FP) NGT SCH (21:56)
[2021-10-01] MEDS: FENTANYL NS IVPB 500 MCG/100 ML BAG IVPB SCH ×6 (01:00→23:10)
[2021-10-01] MEDS ORDERED: PIPERACILLIN/TAZOBACTAM 4.5 GM VIAL IVPB ONE ×4 (02:38→21:48)
[2021-10-01] MEDS ORDERED: DEXTROSE 5%-WATER 100 ML IVPB ONE ×4 (02:38→21:48)
[2021-10-01] MEDS: PIPERACILLIN/TAZOB 4.5 GM 4.5 GM in DEXTROSE 5%-WATER 100 ML IVPB SCH ×4 (02:46→21:51)
[2021-10-01] MEDS: MIDAZOLAM IN 0.9 % SOD.CHLORID 100 MG/100 ML PLAST..BAG IVPB SCH ×7 (02:48→22:19)
[2021-10-01] MEDS: PROPOFOL 1,000,000 MCG/100 ML VIAL IVPB SCH ×8 (04:00→21:52)
[2021-10-01] MEDS: INSULIN (LEVEMIR) 100 UNITS/ML UNITS SQ SCH ×2 (06:37→21:52)
[2021-10-01] MEDS: INSULIN SLIDING SCALE (NOVOLOG) 1 VIAL SQ SCH ×4 (06:38→22:19)
[2021-10-01 07:18] LABS: CALCIUM 8.2 mg/dL (8.5-10.1)
[2021-10-01 07:19] LABS: ALBUMIN 1.5 g/dl (3.4-5.0); BLOOD UREA NITROGEN 32.3 mg/dL (7-18); MAGNESIUM 2.5 mg/dL (1.8-2.4)
[2021-10-01 07:21] LABS: PHOSPHOROUS 2.5 mg/dL (2.5-4.9)
[2021-10-01 07:22] LABS: CREATININE 1.1 mg/dL (0.55-1.3)
[2021-10-01 07:23] LABS: BILIRUBIN,TOTAL 0.5 mg/dL (0.2-1); TOT PROT 5.3 g/dl (6.4-8.2)
[2021-10-01 07:29] LABS: BASO % 0.3 % (0-2.0); EOS % 0.7 % (0-4.5); HEMATOCRIT 26.5 % (35.4-49); HEMOGLOBIN 8.9 GM/dL (11.7-16.9); LYMPH % 14.1 % (8-40); MCH 29.7 pg (25.7-33.7); MCHC 33.5 g/dl (32.0-35.9); MEAN CELL VOLUME 88.7 fl (80-96); MEAN PLT VOLUME 8.8 fl (7.5-11.1); MONO % 11.7 % (3.8-10.2); NEUT % 73.2 % (42.8-82.8); PLATELET COUNT 311 10^3/uL (134-434); RBC 2.99 M/mm3 (4.00-5.60); RDW 17.9 % (11.9-15.9); WHITE BLOOD COUNT 5.7 K/mm3 (4.0-10.0)
[2021-10-01] MEDS: AMINO ACIDS/PROTEIN HYDROLYS 30 ML LIQUID.PKT NGT SCH ×2 (08:30→16:51)
[2021-10-01] MEDS ORDERED: PT OWN MED DRAWER 7, Y5N ONE ×2 (10:39→21:48)
[2021-10-01] MEDS: ZINC SULFATE 220 MG CAPSULE (FP) NGT SCH ×2 (10:44→21:52)
[2021-10-01] MEDS: ENOXAPARIN NA (PORCINE) 40 MG/0.4 ML DISP.SYRIN SQ SCH ×2 (10:44→21:51)
[2021-10-01] MEDS: DOCUSATE NA 100 MG/10 ML UNIT-DOSE CUPS NGT SCH ×2 (10:45→21:51)
[2021-10-01] MEDS: POLYETHYLENE GLYCOL (HEALTHYLAX) 3350 17 GM PACKET NGT SCH (10:45)
[2021-10-01] MEDS: DEXAMETHASONE SOD PHOSPHATE 4 MG/1 ML VIAL IVPUSH SCH (10:45)
[2021-10-01] MEDS: PANTOPRAZOLE SODIUM 40 MG VIAL IVPUSH SCH (10:46)
[2021-10-01] MEDS: TETRAHYDROZOLINE HCL EYE DROPS OU SCH ×4 (10:46→21:55)
[2021-10-01] MEDS: ASCORBIC ACID 500 MG/5 ML UNIT DOSE CUP NGT SCH ×2 (10:46→21:51)
[2021-10-01] MEDS: ATORVASTATIN CA 20 MG TABLET (FP) NGT SCH (21:51)
[2021-10-01] MEDS: CHLORHEXIDINE GLUCONATE 4% CLEANSER FOR DECOLONIZATION TP SCH (21:51)
[2021-10-02] MEDS ORDERED: PIPERACILLIN/TAZOBACTAM 4.5 GM VIAL IVPB ONE ×2 (01:33→07:44)
[2021-10-02] MEDS ORDERED: DEXTROSE 5%-WATER 100 ML IVPB ONE ×3 (01:33→21:10)
[2021-10-02] MEDS: PROPOFOL 1,000,000 MCG/100 ML VIAL IVPB SCH (02:10)
[2021-10-02] MEDS: FENTANYL NS IVPB 500 MCG/100 ML BAG IVPB SCH (03:05)
[2021-10-02] MEDS: PIPERACILLIN/TAZOB 4.5 GM 4.5 GM in DEXTROSE 5%-WATER 100 ML IVPB SCH ×2 (03:46→08:25)
[2021-10-02] MEDS: INSULIN SLIDING SCALE (NOVOLOG) 1 VIAL SQ SCH ×4 (06:36→21:20)
[2021-10-02] MEDS: INSULIN (LEVEMIR) 100 UNITS/ML UNITS SQ SCH ×2 (06:36→21:20)
[2021-10-02 07:17] LABS: HEMATOCRIT 27.5 % (35.4-49); HEMOGLOBIN 9.3 GM/dL (11.7-16.9); MCH 29.8 pg (25.7-33.7); MCHC 33.8 g/dl (32.0-35.9); MEAN CELL VOLUME 88.1 fl (80-96); MEAN PLT VOLUME 8.1 fl (7.5-11.1); PLATELET COUNT 388 10^3/uL (134-434); RBC 3.12 M/mm3 (4.00-5.60); RDW 17.6 % (11.9-15.9); WHITE BLOOD COUNT 7.2 K/mm3 (4.0-10.0)
[2021-10-02 07:45] LABS: CALCIUM 8.2 mg/dL (8.5-10.1)
[2021-10-02 07:46] LABS: ALBUMIN 1.6 g/dl (3.4-5.0); BLOOD UREA NITROGEN 30.1 mg/dL (7-18); MAGNESIUM 2.2 mg/dL (1.8-2.4)
[2021-10-02 07:49] LABS: CREATININE 1.1 mg/dL (0.55-1.3); PHOSPHOROUS 2.8 mg/dL (2.5-4.9)
[2021-10-02 07:51] LABS: BILIRUBIN,TOTAL 0.4 mg/dL (0.2-1); TOT PROT 5.6 g/dl (6.4-8.2)
[2021-10-02] MEDS: AMINO ACIDS/PROTEIN HYDROLYS 30 ML LIQUID.PKT NGT SCH ×2 (08:27→18:05)
[2021-10-02 08:38] LABS: ANISOCYTOSIS 0; HELMET CELLS 0; HOWELL-JOLLY BODIES 0; MACROCYTOSIS 0; OVALOCYTE 0; PLATELET ESTIMATE NORMAL; ROULEAU 0; SICKELED CELLS 0; TARGET CELLS 0; TEAR DROP CELLS 0; TOXIC GRANULATION 0
[2021-10-02] MEDS: DEXAMETHASONE SOD PHOSPHATE 4 MG/1 ML VIAL IVPUSH SCH (09:09)
[2021-10-02] MEDS: DOCUSATE NA 100 MG/10 ML UNIT-DOSE CUPS NGT SCH ×2 (09:09→21:20)
[2021-10-02] MEDS: TETRAHYDROZOLINE HCL EYE DROPS OU SCH ×4 (09:09→21:21)
[2021-10-02] MEDS: POLYETHYLENE GLYCOL (HEALTHYLAX) 3350 17 GM PACKET NGT SCH (09:09)
[2021-10-02] MEDS: PANTOPRAZOLE SODIUM 40 MG VIAL IVPUSH SCH (09:09)
[2021-10-02] MEDS: ZINC SULFATE 220 MG CAPSULE (FP) NGT SCH ×2 (09:09→21:21)
[2021-10-02] MEDS: ENOXAPARIN NA (PORCINE) 40 MG/0.4 ML DISP.SYRIN SQ SCH ×2 (09:09→21:18)
[2021-10-02] MEDS: ASCORBIC ACID 500 MG/5 ML UNIT DOSE CUP NGT SCH ×2 (09:10→21:21)
[2021-10-02] MEDS ORDERED: PT OWN MED DRAWER 7, Y5N ONE (10:01)
[2021-10-02] MEDS ORDERED: METOCLOPRAMIDE HCL 10 MG/10 ML UNIT DOSE CUP NGT ONE (10:05)
[2021-10-02] MEDS ORDERED: ALBUTEROL SO4 0.083% IH SOL 2.5 MG/3 ML VIAL.NEB. NEB PRN (10:35)
[2021-10-02] MEDS: ALBUTEROL SO4 2.5/IPRATROPIUM 0.5 INH SOL 3 ML VIAL.NEB. NEB SCH ×3 (12:14→20:52)
[2021-10-02] MEDS ORDERED: ACETAMINOPHEN 1000 MG/100 ML BAG IVPB ONE ×3 (12:15→21:44)
[2021-10-02] MEDS ORDERED: LABETALOL HCL 200 MG TABLET (FP) PO ONE (18:43)
[2021-10-02] MEDS ORDERED: MEROPENEM 1 GM in DEXTROSE 5%-WATER 100 ML IVPB SCH (19:00)
[2021-10-02] MEDS ORDERED: VANCOMYCIN HCL 1,500 MG in DEXTROSE 5%-WATER - 250 ML IVPB SCH (19:15)
[2021-10-02] MEDS ORDERED: MEROPENEM 1 GM VIAL (RESTRICTED TO ID) IVPB ONE (21:10)
[2021-10-02] MEDS: VANCOMYCIN PREMIX 1.5 GM 1,500 MG/300 ML BAG IVPB SCH (21:19)
[2021-10-02] MEDS: MEROPENEM 1 GM in DEXTROSE 5%-WATER 100 ML IVPB SCH (21:19)
[2021-10-02] MEDS: ATORVASTATIN CA 20 MG TABLET (FP) NGT SCH (21:20)
[2021-10-02] MEDS: CHLORHEXIDINE GLUCONATE 4% CLEANSER FOR DECOLONIZATION TP SCH (21:20)
[2021-10-02 22:13] LABS: EPI CELLS 12 /uL (0-25.1); HYALINE CASTS 0 /uL (0-3.1); URINE APPEARANCE CLEAR; URINE BACTERIA 11 /uL (0-1359); URINE BILIRUBIN NEGATIVE (NEGATIVE); URINE COLOR YELLOW; URINE GLUCOSE (UA) NEGATIVE (NEGATIVE); URINE KETONE NEGATIVE (NEGATIVE); URINE LEUK ESTERASE TRACE (NEGATIVE); URINE NITRITE NEGATIVE (NEGATIVE); URINE PROTEIN 1+ (NEGATIVE); URINE RBC 15 /uL (0-23.9); URINE WBC 20 /uL (0-25.8)
[2021-10-02] MEDS ORDERED: dilTIAZem HCL 50 MG/10 ML - 10 ML VIAL IVPUSH PRN (22:16)
[2021-10-02] MEDS ORDERED: ACETAMINOPHEN 1000 MG/100 ML BAG IVPB PRN (22:25)
[2021-10-02] MEDS: DEXMEDETOMIDINE IN 0.9 % NACL 400 MCG/100 ML VIAL IVPB SCH (23:00)
[2021-10-03] MEDS ORDERED: DEXTROSE 5%-WATER 100 ML IVPB ONE ×3 (01:40→17:14)
[2021-10-03] MEDS ORDERED: MEROPENEM 1 GM VIAL (RESTRICTED TO ID) IVPB ONE ×3 (01:40→17:13)
[2021-10-03] MEDS: MEROPENEM 1 GM in DEXTROSE 5%-WATER 100 ML IVPB SCH ×3 (01:43→17:18)
[2021-10-03] MEDS: DEXMEDETOMIDINE IN 0.9 % NACL 400 MCG/100 ML VIAL IVPB SCH ×2 (05:00→19:00)
[2021-10-03] MEDS: INSULIN (LEVEMIR) 100 UNITS/ML UNITS SQ SCH ×2 (06:38→21:43)
[2021-10-03] MEDS: INSULIN SLIDING SCALE (NOVOLOG) 1 VIAL SQ SCH ×4 (06:38→21:43)
[2021-10-03] MEDS: VANCOMYCIN PREMIX 1.5 GM 1,500 MG/300 ML BAG IVPB SCH (06:39)
[2021-10-03 07:00] LABS: HEMATOCRIT 31.5 % (35.4-49); HEMOGLOBIN 10.2 GM/dL (11.7-16.9); MCH 28.4 pg (25.7-33.7); MCHC 32.5 g/dl (32.0-35.9); MEAN CELL VOLUME 87.3 fl (80-96); MEAN PLT VOLUME 8.2 fl (7.5-11.1); PLATELET COUNT 451 10^3/uL (134-434); RBC 3.61 M/mm3 (4.00-5.60); RDW 16.8 % (11.9-15.9); WHITE BLOOD COUNT 15.8 K/mm3 (4.0-10.0)
[2021-10-03 07:30] LABS: CALCIUM 8.4 mg/dL (8.5-10.1); MAGNESIUM 1.9 mg/dL (1.8-2.4)
[2021-10-03 07:33] LABS: PHOSPHOROUS 3.3 mg/dL (2.5-4.9)
[2021-10-03 07:34] LABS: TOT PROT 5.5 g/dl (6.4-8.2)
[2021-10-03 07:41] LABS: ALBUMIN 1.8 g/dl (3.4-5.0)
[2021-10-03] MEDS: ALBUTEROL SO4 2.5/IPRATROPIUM 0.5 INH SOL 3 ML VIAL.NEB. NEB SCH ×4 (07:50→20:10)
[2021-10-03] MEDS ORDERED: POTASSIUM CHLORIDE ORAL LIQUID 20 MEQ/15 ML PO ONE (08:25)
[2021-10-03 09:06] LABS: ANISOCYTOSIS 0; HELMET CELLS 0; HOWELL-JOLLY BODIES 0; MACROCYTOSIS 0; OVALOCYTE 0; PLATELET ESTIMATE NORMAL; ROULEAU 0; SICKELED CELLS 0; TARGET CELLS 0; TEAR DROP CELLS 0; TOXIC GRANULATION 0
[2021-10-03] MEDS: KCL 10 MEQ IVPB 10 MEQ/100 ML INFUS.BAG IVPB SCH ×3 (09:20→12:27)
[2021-10-03] MEDS: ENOXAPARIN NA (PORCINE) 40 MG/0.4 ML DISP.SYRIN SQ SCH ×2 (09:21→21:43)
[2021-10-03] MEDS: PANTOPRAZOLE SODIUM 40 MG VIAL IVPUSH SCH (09:21)
[2021-10-03] MEDS: DEXAMETHASONE SOD PHOSPHATE 4 MG/1 ML VIAL IVPUSH SCH (09:21)
[2021-10-03] MEDS: POLYETHYLENE GLYCOL (HEALTHYLAX) 3350 17 GM PACKET NGT SCH (09:22)
[2021-10-03] MEDS: ZINC SULFATE 220 MG CAPSULE (FP) NGT SCH ×2 (09:22→21:44)
[2021-10-03] MEDS: DOCUSATE NA 100 MG/10 ML UNIT-DOSE CUPS NGT SCH ×2 (09:22→21:43)
[2021-10-03] MEDS: TETRAHYDROZOLINE HCL EYE DROPS OU SCH ×4 (09:22→21:44)
[2021-10-03] MEDS: ASCORBIC ACID 500 MG/5 ML UNIT DOSE CUP NGT SCH ×2 (09:22→21:44)
[2021-10-03] MEDS: AMINO ACIDS/PROTEIN HYDROLYS 30 ML LIQUID.PKT NGT SCH ×2 (09:22→17:18)
[2021-10-03] MEDS ORDERED: amLODIPine BESYLATE 10 MG TABLET (FP) PO SCH (10:00)
[2021-10-03] MEDS ORDERED: LABETALOL HCL 200 MG TABLET (FP) PO SCH (10:00)
[2021-10-03] MEDS ORDERED: LABETALOL HCL 5 MG/1 ML (100MG/20 ML VIAL) IVPUSH PRN (14:47)
[2021-10-03] MEDS ORDERED: METOPROLOL TARTRATE 5 MG/5 ML VIAL IVPUSH PRN (14:48)
[2021-10-03] MEDS: CHLORHEXIDINE GLUCONATE 4% CLEANSER FOR DECOLONIZATION TP SCH (21:43)
[2021-10-03] MEDS: ATORVASTATIN CA 20 MG TABLET (FP) NGT SCH (21:43)
[2021-10-03] MEDS ORDERED: morphine CARPU-JECT 2 MG/1 ML DISP.SYRIN IVPUSH ONE (21:55)
[2021-10-03] MEDS ORDERED: RAPID SEQUENCE INTUBATION KIT NR ONE (21:55)
[2021-10-04] MEDS ORDERED: MEROPENEM 1 GM VIAL (RESTRICTED TO ID) IVPB ONE ×3 (00:43→17:16)
[2021-10-04] MEDS ORDERED: DEXTROSE 5%-WATER 100 ML IVPB ONE ×3 (00:44→17:16)
[2021-10-04] MEDS: MEROPENEM 1 GM in DEXTROSE 5%-WATER 100 ML IVPB SCH ×3 (01:12→18:08)
[2021-10-04] MEDS: INSULIN (LEVEMIR) 100 UNITS/ML UNITS SQ SCH ×2 (06:53→21:40)
[2021-10-04] MEDS: INSULIN SLIDING SCALE (NOVOLOG) 1 VIAL SQ SCH ×4 (06:53→22:21)
[2021-10-04] MEDS: ALBUTEROL SO4 2.5/IPRATROPIUM 0.5 INH SOL 3 ML VIAL.NEB. NEB SCH ×4 (08:00→20:54)
[2021-10-04] MEDS: VANCOMYCIN 1 GRAM (PRE-DOCKED) 1,000 MG/250 ML BAG IVPB SCH ×2 (09:39→21:46)
[2021-10-04] MEDS: ZINC SULFATE 220 MG CAPSULE (FP) NGT SCH ×2 (09:41→21:47)
[2021-10-04] MEDS: POLYETHYLENE GLYCOL (HEALTHYLAX) 3350 17 GM PACKET NGT SCH (09:41)
[2021-10-04] MEDS: ENOXAPARIN NA (PORCINE) 40 MG/0.4 ML DISP.SYRIN SQ SCH ×2 (09:41→21:46)
[2021-10-04] MEDS: PANTOPRAZOLE SODIUM 40 MG VIAL IVPUSH SCH (09:41)
[2021-10-04] MEDS: DEXAMETHASONE SOD PHOSPHATE 4 MG/1 ML VIAL IVPUSH SCH (09:41)
[2021-10-04] MEDS: ASCORBIC ACID 500 MG/5 ML UNIT DOSE CUP NGT SCH ×2 (09:42→21:47)
[2021-10-04] MEDS: DOCUSATE NA 100 MG/10 ML UNIT-DOSE CUPS NGT SCH ×2 (09:42→21:46)
[2021-10-04] MEDS: TETRAHYDROZOLINE HCL EYE DROPS OU SCH ×4 (09:42→21:47)
[2021-10-04] MEDS: AMINO ACIDS/PROTEIN HYDROLYS 30 ML LIQUID.PKT NGT SCH ×2 (09:42→18:08)
[2021-10-04] MEDS: DEXMEDETOMIDINE IN 0.9 % NACL 400 MCG/100 ML VIAL IVPB SCH ×2 (10:54→18:09)
[2021-10-04 12:49] LABS: ARTERIAL BLD GAS O2 SATURATION 92.5 % (95-98); ARTERIAL BLOOD GAS BASE EXCESS -0.5 mmol/L (-2-2); ARTERIAL BLOOD GAS PO2 60.2 mmHg (80-100); ARTERIAL BLOOD GAS pH 7.456 (7.350-7.450)
[2021-10-04 12:51] LABS: ALLENS TEST POSITIVE; VENT MODE P-A/C; VENT RATE 14
[2021-10-04 13:31] LABS: HEMATOCRIT 31.4 % (35.4-49); MCH 28.2 pg (25.7-33.7); MCHC 31.9 g/dl (32.0-35.9); MEAN CELL VOLUME 88.4 fl (80-96); MEAN PLT VOLUME 8.4 fl (7.5-11.1); PLATELET COUNT 538 10^3/uL (134-434); RBC 3.55 M/mm3 (4.00-5.60); RDW 17.5 % (11.9-15.9); WHITE BLOOD COUNT 12.5 K/mm3 (4.0-10.0)
[2021-10-04 13:50] LABS: ALBUMIN 1.9 g/dl (3.4-5.0); BLOOD UREA NITROGEN 31.4 mg/dL (7-18); CALCIUM 8.8 mg/dL (8.5-10.1); MAGNESIUM 2.4 mg/dL (1.8-2.4)
[2021-10-04 13:53] LABS: CREATININE 0.9 mg/dL (0.55-1.3); PHOSPHOROUS 3.9 mg/dL (2.5-4.9)
[2021-10-04 13:56] LABS: TOT PROT 5.8 g/dl (6.4-8.2)
[2021-10-04 14:23] LABS: ANISOCYTOSIS 2+; MACROCYTOSIS 2+; PLATELET ESTIMATE INCREASED
[2021-10-04] MEDS: ATORVASTATIN CA 20 MG TABLET (FP) NGT SCH (21:47)
[2021-10-04] MEDS: CHLORHEXIDINE GLUCONATE 4% CLEANSER FOR DECOLONIZATION TP SCH (21:47)
[2021-10-05] MEDS ORDERED: MEROPENEM 1 GM VIAL (RESTRICTED TO ID) IVPB ONE ×3 (00:37→17:14)
[2021-10-05] MEDS ORDERED: DEXTROSE 5%-WATER 100 ML IVPB ONE ×3 (00:37→17:15)
[2021-10-05] MEDS: MEROPENEM 1 GM in DEXTROSE 5%-WATER 100 ML IVPB SCH ×3 (01:17→17:25)
[2021-10-05] MEDS: DEXMEDETOMIDINE IN 0.9 % NACL 400 MCG/100 ML VIAL IVPB SCH ×4 (01:19→23:00)
[2021-10-05] MEDS: INSULIN (LEVEMIR) 100 UNITS/ML UNITS SQ SCH ×2 (06:23→21:07)
[2021-10-05] MEDS: INSULIN SLIDING SCALE (NOVOLOG) 1 VIAL SQ SCH ×4 (06:24→21:00)
[2021-10-05 06:56] LABS: HEMATOCRIT 31.8 % (35.4-49); HEMOGLOBIN 10.1 GM/dL (11.7-16.9); MCHC 31.6 g/dl (32.0-35.9); MEAN CELL VOLUME 88.5 fl (80-96); MEAN PLT VOLUME 8.5 fl (7.5-11.1); PLATELET COUNT 590 10^3/uL (134-434); RDW 17.1 % (11.9-15.9); WHITE BLOOD COUNT 13.1 K/mm3 (4.0-10.0)
[2021-10-05 07:18] LABS: CALCIUM 8.8 mg/dL (8.5-10.1)
[2021-10-05 07:19] LABS: BLOOD UREA NITROGEN 31.6 mg/dL (7-18); MAGNESIUM 2.3 mg/dL (1.8-2.4)
[2021-10-05 07:22] LABS: PHOSPHOROUS 2.3 mg/dL (2.5-4.9)
[2021-10-05 07:24] LABS: TOT PROT 5.9 g/dl (6.4-8.2)
[2021-10-05 07:44] LABS: ALBUMIN 1.9 g/dl (3.4-5.0)
[2021-10-05] MEDS: ALBUTEROL SO4 2.5/IPRATROPIUM 0.5 INH SOL 3 ML VIAL.NEB. NEB SCH ×4 (08:00→20:28)
[2021-10-05] MEDS ORDERED: HALOPERIDOL LACTATE 5 MG/ML IV ONE (08:40)
[2021-10-05] MEDS ORDERED: LORazepam 2 MG/ML SDV VIAL ONE (08:46)
[2021-10-05 09:24] LABS: ANISOCYTOSIS 1+; MACROCYTOSIS 0; PLATELET ESTIMATE INCREASED
[2021-10-05] MEDS: AMINO ACIDS/PROTEIN HYDROLYS 30 ML LIQUID.PKT NGT SCH (09:40)
[2021-10-05] MEDS: LORazepam 2 MG/ML SDV VIAL IVPUSH STA ×2 (09:41→10:00)
[2021-10-05] MEDS: DOCUSATE NA 100 MG/10 ML UNIT-DOSE CUPS NGT SCH ×2 (09:41→21:08)
[2021-10-05] MEDS: DEXAMETHASONE SOD PHOSPHATE 4 MG/1 ML VIAL IVPUSH SCH (09:41)
[2021-10-05] MEDS: POLYETHYLENE GLYCOL (HEALTHYLAX) 3350 17 GM PACKET NGT SCH (09:42)
[2021-10-05] MEDS: ENOXAPARIN NA (PORCINE) 40 MG/0.4 ML DISP.SYRIN SQ SCH ×2 (09:46→21:00)
[2021-10-05] MEDS: PANTOPRAZOLE SODIUM 40 MG VIAL IVPUSH SCH (09:47)
[2021-10-05] MEDS: ZINC SULFATE 220 MG CAPSULE (FP) NGT SCH ×2 (09:47→21:08)
[2021-10-05] MEDS: VANCOMYCIN 1 GRAM (PRE-DOCKED) 1,000 MG/250 ML BAG IVPB SCH (09:47)
[2021-10-05] MEDS: ASCORBIC ACID 500 MG/5 ML UNIT DOSE CUP NGT SCH ×2 (09:48→21:08)
[2021-10-05] MEDS: TETRAHYDROZOLINE HCL EYE DROPS OU SCH ×4 (09:48→21:08)
[2021-10-05] MEDS: QUEtiapine FUMARATE 100 MG TABLET (FP) PO SCH ×3 (09:57→21:08)
[2021-10-05] MEDS ORDERED: PT OWN MED DRAWER 7, Y5N ONE (19:17)
[2021-10-05] MEDS: AMINO ACIDS 4.25%/D5W 1,000 ML IV SCH (20:00)
[2021-10-05] MEDS: ATORVASTATIN CA 20 MG TABLET (FP) NGT SCH (21:08)
[2021-10-05] MEDS: CHLORHEXIDINE GLUCONATE 4% CLEANSER FOR DECOLONIZATION TP SCH (21:08)
[2021-10-06] MEDS ORDERED: MEROPENEM 1 GM VIAL (RESTRICTED TO ID) IVPB ONE ×3 (00:41→17:37)
[2021-10-06] MEDS ORDERED: DEXTROSE 5%-WATER 100 ML IVPB ONE ×3 (00:41→17:37)
[2021-10-06] MEDS: MEROPENEM 1 GM in DEXTROSE 5%-WATER 100 ML IVPB SCH ×3 (01:57→17:42)
[2021-10-06] MEDS ORDERED: PT OWN MED DRAWER 7, Y5N ONE ×2 (03:52→22:26)
[2021-10-06] MEDS: DEXMEDETOMIDINE IN 0.9 % NACL 400 MCG/100 ML VIAL IVPB SCH ×3 (05:10→17:41)
[2021-10-06] MEDS: INSULIN SLIDING SCALE (NOVOLOG) 1 VIAL SQ SCH ×3 (06:01→17:13)
[2021-10-06] MEDS: INSULIN (LEVEMIR) 100 UNITS/ML UNITS SQ SCH ×2 (06:02→20:00)
[2021-10-06 06:56] LABS: BLOOD UREA NITROGEN 29.8 mg/dL (7-18); CALCIUM 8.6 mg/dL (8.5-10.1); MAGNESIUM 2.1 mg/dL (1.8-2.4)
[2021-10-06 07:00] LABS: CREATININE 0.9 mg/dL (0.55-1.3)
[2021-10-06 07:01] LABS: PHOSPHOROUS 2.4 mg/dL (2.5-4.9)
[2021-10-06 07:10] LABS: HEMATOCRIT 30.2 % (35.4-49); HEMOGLOBIN 9.5 GM/dL (11.7-16.9); MCH 28.1 pg (25.7-33.7); MCHC 31.4 g/dl (32.0-35.9); MEAN CELL VOLUME 89.4 fl (80-96); MEAN PLT VOLUME 8.2 fl (7.5-11.1); PLATELET COUNT 666 10^3/uL (134-434); RBC 3.38 M/mm3 (4.00-5.60); RDW 16.8 % (11.9-15.9); WHITE BLOOD COUNT 12.5 K/mm3 (4.0-10.0)
[2021-10-06] MEDS: ALBUTEROL SO4 2.5/IPRATROPIUM 0.5 INH SOL 3 ML VIAL.NEB. NEB SCH ×4 (07:50→20:10)
[2021-10-06] MEDS: AMINO ACIDS/PROTEIN HYDROLYS 30 ML LIQUID.PKT NGT SCH ×2 (08:41→17:10)
[2021-10-06] MEDS: DOCUSATE NA 100 MG/10 ML UNIT-DOSE CUPS NGT SCH ×2 (09:05→23:04)
[2021-10-06] MEDS: POLYETHYLENE GLYCOL (HEALTHYLAX) 3350 17 GM PACKET NGT SCH (09:05)
[2021-10-06] MEDS: DEXAMETHASONE SOD PHOSPHATE 4 MG/1 ML VIAL IVPUSH SCH (09:05)
[2021-10-06] MEDS: QUEtiapine FUMARATE 100 MG TABLET (FP) PO SCH ×2 (09:05→23:10)
[2021-10-06] MEDS: TETRAHYDROZOLINE HCL EYE DROPS OU SCH ×3 (09:05→17:15)
[2021-10-06] MEDS: PANTOPRAZOLE SODIUM 40 MG VIAL IVPUSH SCH (09:05)
[2021-10-06] MEDS: ZINC SULFATE 220 MG CAPSULE (FP) NGT SCH ×2 (09:05→23:10)
[2021-10-06] MEDS: ASCORBIC ACID 500 MG/5 ML UNIT DOSE CUP NGT SCH ×2 (09:06→23:10)
[2021-10-06] MEDS: AMINO ACIDS 4.25%/D5W 1,000 ML IV SCH (17:40)
[2021-10-06] MEDS: ATORVASTATIN CA 20 MG TABLET (FP) NGT SCH (23:04)
[2021-10-06] MEDS: CHLORHEXIDINE GLUCONATE 4% CLEANSER FOR DECOLONIZATION TP SCH (23:04)
[2021-10-07] MEDS: TETRAHYDROZOLINE HCL EYE DROPS OU SCH ×5 (00:01→23:20)
[2021-10-07] MEDS ORDERED: PT OWN MED DRAWER 7, Y5N ONE ×3 (00:12→20:06)
[2021-10-07] MEDS ORDERED: MEROPENEM 1 GM VIAL (RESTRICTED TO ID) IVPB ONE ×3 (01:33→17:08)
[2021-10-07] MEDS ORDERED: DEXTROSE 5%-WATER 100 ML IVPB ONE ×3 (01:34→17:09)
[2021-10-07] MEDS: MEROPENEM 1 GM in DEXTROSE 5%-WATER 100 ML IVPB SCH ×3 (01:38→17:19)
[2021-10-07] MEDS: INSULIN SLIDING SCALE (NOVOLOG) 1 VIAL SQ SCH ×5 (07:00→23:32)
[2021-10-07] MEDS: INSULIN (LEVEMIR) 100 UNITS/ML UNITS SQ SCH ×2 (07:50→23:31)
[2021-10-07 08:11] LABS: BASO % 0.7 % (0-2.0); EOS % 1.2 % (0-4.5); HEMATOCRIT 32.2 % (35.4-49); HEMOGLOBIN 10.4 GM/dL (11.7-16.9); LYMPH % 12.8 % (8-40); MCH 28.5 pg (25.7-33.7); MCHC 32.2 g/dl (32.0-35.9); MEAN CELL VOLUME 88.5 fl (80-96); MEAN PLT VOLUME 7.6 fl (7.5-11.1); MONO % 6.6 % (3.8-10.2); NEUT % 78.7 % (42.8-82.8); PLATELET COUNT 559 10^3/uL (134-434); RBC 3.64 M/mm3 (4.00-5.60); RDW 17.2 % (11.9-15.9); WHITE BLOOD COUNT 9.5 K/mm3 (4.0-10.0)
[2021-10-07] MEDS: ALBUTEROL SO4 2.5/IPRATROPIUM 0.5 INH SOL 3 ML VIAL.NEB. NEB SCH (08:26)
[2021-10-07 08:28] LABS: CALCIUM 8.5 mg/dL (8.5-10.1)
[2021-10-07 08:29] LABS: ALBUMIN 1.9 g/dl (3.4-5.0); BLOOD UREA NITROGEN 27.4 mg/dL (7-18)
[2021-10-07 08:31] LABS: MAGNESIUM 1.9 mg/dL (1.8-2.4)
[2021-10-07 08:33] LABS: BILIRUBIN,TOTAL 0.6 mg/dL (0.2-1); CREATININE 0.8 mg/dL (0.55-1.3); PHOSPHOROUS 2.1 mg/dL (2.5-4.9); TOT PROT 5.6 g/dl (6.4-8.2)
[2021-10-07] MEDS: DOCUSATE NA 100 MG/10 ML UNIT-DOSE CUPS NGT SCH ×2 (09:13→23:20)
[2021-10-07] MEDS: AMINO ACIDS/PROTEIN HYDROLYS 30 ML LIQUID.PKT NGT SCH ×2 (09:13→16:39)
[2021-10-07] MEDS: POLYETHYLENE GLYCOL (HEALTHYLAX) 3350 17 GM PACKET NGT SCH (09:13)
[2021-10-07] MEDS: ENOXAPARIN NA (PORCINE) 40 MG/0.4 ML DISP.SYRIN SQ SCH (09:14)
[2021-10-07] MEDS: DEXAMETHASONE SOD PHOSPHATE 4 MG/1 ML VIAL IVPUSH SCH (09:17)
[2021-10-07] MEDS: LABETALOL HCL 200 MG TABLET (FP) NGT SCH ×2 (09:17→23:20)
[2021-10-07] MEDS: PANTOPRAZOLE SODIUM 40 MG VIAL IVPUSH SCH (09:18)
[2021-10-07] MEDS: ZINC SULFATE 220 MG CAPSULE (FP) NGT SCH ×2 (09:18→23:20)
[2021-10-07] MEDS: ASCORBIC ACID 500 MG/5 ML UNIT DOSE CUP NGT SCH ×2 (09:19→23:21)
[2021-10-07] MEDS ORDERED: POTASSIUM PHOSPHATE 15 MM in SODIUM CHLORIDE 250 ML IVPB ONE (09:30)
[2021-10-07] MEDS: QUEtiapine FUMARATE 50 MG TABLET NGT SCH ×2 (11:09→23:20)
[2021-10-07 13:13] LABS: ARTERIAL BLD GAS O2 SATURATION 95.4 % (95-98); ARTERIAL BLOOD GAS BASE EXCESS 2.8 mmol/L (-2-2); ARTERIAL BLOOD GAS PO2 73.6 mmHg (80-100); ARTERIAL BLOOD GAS pH 7.449 (7.350-7.450)
[2021-10-07 13:15] LABS: ALLENS TEST POSITIVE
[2021-10-07 13:16] LABS: VENT RATE SOL 90
[2021-10-07] MEDS: AMINO ACIDS 4.25%/D5W 1,000 ML IV SCH (17:19)
[2021-10-07] MEDS: DEXMEDETOMIDINE IN 0.9 % NACL 400 MCG/100 ML VIAL IVPB SCH (20:00)
[2021-10-07] MEDS: CHLORHEXIDINE GLUCONATE 4% CLEANSER FOR DECOLONIZATION TP SCH (23:20)
[2021-10-07] MEDS: ATORVASTATIN CA 20 MG TABLET (FP) NGT SCH (23:20)
[2021-10-08] MEDS: MEROPENEM 1 GM in DEXTROSE 5%-WATER 100 ML IVPB SCH ×3 (03:30→17:37)
[2021-10-08] MEDS ORDERED: DEXTROSE 5%-WATER 100 ML IVPB ONE ×3 (03:44→17:06)
[2021-10-08] MEDS ORDERED: MEROPENEM 1 GM VIAL (RESTRICTED TO ID) IVPB ONE ×3 (03:44→17:06)
[2021-10-08] MEDS: INSULIN SLIDING SCALE (NOVOLOG) 1 VIAL SQ SCH ×4 (06:27→22:11)
[2021-10-08] MEDS: INSULIN (LEVEMIR) 100 UNITS/ML UNITS SQ SCH ×2 (06:27→21:24)
[2021-10-08 07:42] LABS: BASO % 0.6 % (0-2.0); EOS % 1.1 % (0-4.5); HEMATOCRIT 28.2 % (35.4-49); HEMOGLOBIN 9.2 GM/dL (11.7-16.9); LYMPH % 13.5 % (8-40); MCH 28.8 pg (25.7-33.7); MCHC 32.6 g/dl (32.0-35.9); MEAN CELL VOLUME 88.6 fl (80-96); MEAN PLT VOLUME 7.4 fl (7.5-11.1); MONO % 4.3 % (3.8-10.2); NEUT % 80.5 % (42.8-82.8); PLATELET COUNT 478 10^3/uL (134-434); RBC 3.18 M/mm3 (4.00-5.60); RDW 17.1 % (11.9-15.9); WHITE BLOOD COUNT 12.1 K/mm3 (4.0-10.0)
[2021-10-08 08:18] LABS: ALBUMIN 1.8 g/dl (3.4-5.0); BLOOD UREA NITROGEN 26.6 mg/dL (7-18)
[2021-10-08 08:19] LABS: CALCIUM 8.5 mg/dL (8.5-10.1)
[2021-10-08 08:21] LABS: CREATININE 0.9 mg/dL (0.55-1.3); PHOSPHOROUS 2.6 mg/dL (2.5-4.9)
[2021-10-08 08:22] LABS: TOT PROT 5.1 g/dl (6.4-8.2)
[2021-10-08 08:23] LABS: MAGNESIUM 1.9 mg/dL (1.8-2.4)
[2021-10-08] MEDS ORDERED: PT OWN MED DRAWER 7, Y5N ONE ×2 (10:44→21:11)
[2021-10-08] MEDS: POLYETHYLENE GLYCOL (HEALTHYLAX) 3350 17 GM PACKET PO SCH (10:56)
[2021-10-08] MEDS: DOCUSATE NA 100 MG/10 ML UNIT-DOSE CUPS PO SCH ×2 (10:58→21:12)
[2021-10-08] MEDS: ASCORBIC ACID 500 MG/5 ML UNIT DOSE CUP PO SCH ×2 (10:58→21:13)
[2021-10-08] MEDS: LABETALOL HCL 200 MG TABLET (FP) PO SCH ×2 (10:59→21:12)
[2021-10-08] MEDS: ZINC SULFATE 220 MG CAPSULE (FP) PO SCH ×2 (10:59→21:13)
[2021-10-08] MEDS: PANTOPRAZOLE SODIUM 40 MG VIAL IVPUSH SCH (10:59)
[2021-10-08] MEDS: QUEtiapine FUMARATE 50 MG TABLET PO SCH ×2 (11:00→21:12)
[2021-10-08] MEDS: ENOXAPARIN NA (PORCINE) 40 MG/0.4 ML DISP.SYRIN SQ SCH (11:05)
[2021-10-08] MEDS: TETRAHYDROZOLINE HCL EYE DROPS OU SCH ×4 (11:30→21:13)
[2021-10-08] MEDS: CHLORHEXIDINE GLUCONATE 4% CLEANSER FOR DECOLONIZATION TP SCH (21:12)
[2021-10-08] MEDS: ATORVASTATIN CA 20 MG TABLET (FP) PO SCH (21:12)
[2021-10-09] MEDS: MEROPENEM 1 GM in DEXTROSE 5%-WATER 100 ML IVPB SCH ×3 (01:28→17:37)
[2021-10-09] MEDS: INSULIN SLIDING SCALE (NOVOLOG) 1 VIAL SQ SCH ×3 (06:06→22:29)
[2021-10-09 08:04] LABS: BASO % 0.8 % (0-2.0); EOS % 1.5 % (0-4.5); HEMATOCRIT 31.3 % (35.4-49); HEMOGLOBIN 10.1 GM/dL (11.7-16.9); LYMPH % 18.6 % (8-40); MCH 28.7 pg (25.7-33.7); MCHC 32.3 g/dl (32.0-35.9); MEAN CELL VOLUME 88.9 fl (80-96); MEAN PLT VOLUME 7.4 fl (7.5-11.1); MONO % 5.6 % (3.8-10.2); NEUT % 73.5 % (42.8-82.8); PLATELET COUNT 472 10^3/uL (134-434); RBC 3.52 M/mm3 (4.00-5.60); RDW 17.6 % (11.9-15.9); WHITE BLOOD COUNT 9.4 K/mm3 (4.0-10.0)
[2021-10-09 08:31] LABS: CREATININE 0.9 mg/dL (0.55-1.3)
[2021-10-09 08:32] LABS: ALBUMIN 1.8 g/dl (3.4-5.0); BILIRUBIN,TOTAL 0.8 mg/dL (0.2-1); BLOOD UREA NITROGEN 20.3 mg/dL (7-18)
[2021-10-09 08:33] LABS: TOT PROT 5.7 g/dl (6.4-8.2)
[2021-10-09 08:35] LABS: PHOSPHOROUS 2.6 mg/dL (2.5-4.9)
[2021-10-09 08:36] LABS: MAGNESIUM 1.9 mg/dL (1.8-2.4)
[2021-10-09 08:38] LABS: CALCIUM 8.2 mg/dL (8.5-10.1)
[2021-10-09] MEDS ORDERED: MEROPENEM 1 GM VIAL (RESTRICTED TO ID) IVPB ONE ×2 (10:21→17:29)
[2021-10-09] MEDS ORDERED: DEXTROSE 5%-WATER 100 ML IVPB ONE ×2 (10:21→17:29)
[2021-10-09] MEDS: DOCUSATE NA 100 MG/10 ML UNIT-DOSE CUPS PO SCH ×2 (11:15→22:28)
[2021-10-09] MEDS: POLYETHYLENE GLYCOL (HEALTHYLAX) 3350 17 GM PACKET PO SCH (11:16)
[2021-10-09] MEDS: ENOXAPARIN NA (PORCINE) 40 MG/0.4 ML DISP.SYRIN SQ SCH (11:16)
[2021-10-09] MEDS: PANTOPRAZOLE 40 MG TABLET PO SCH (11:17)
[2021-10-09] MEDS: LABETALOL HCL 200 MG TABLET (FP) PO SCH ×2 (11:17→22:28)
[2021-10-09] MEDS: ZINC SULFATE 220 MG CAPSULE (FP) PO SCH ×2 (11:17→22:28)
[2021-10-09] MEDS: TETRAHYDROZOLINE HCL EYE DROPS OU SCH ×4 (11:18→22:28)
[2021-10-09] MEDS: QUEtiapine FUMARATE 50 MG TABLET PO SCH ×2 (11:18→22:28)
[2021-10-09] MEDS: INSULIN (LEVEMIR) 100 UNITS/ML UNITS SQ SCH ×2 (11:19→22:29)
[2021-10-09] MEDS: ASCORBIC ACID 500 MG/5 ML UNIT DOSE CUP PO SCH ×2 (13:06→22:27)
[2021-10-09] MEDS: AMINO ACIDS/PROTEIN HYDROLYS 30 ML LIQUID.PKT PO SCH (17:37)
[2021-10-09] MEDS ORDERED: PT OWN MED DRAWER 7, Y5N ONE (21:45)
[2021-10-09] MEDS: ATORVASTATIN CA 20 MG TABLET (FP) PO SCH (22:28)
[2021-10-09] MEDS: CHLORHEXIDINE GLUCONATE 4% CLEANSER FOR DECOLONIZATION TP SCH (22:29)
[2021-10-10] MEDS ORDERED: PT OWN MED DRAWER 7, Y5N ONE (00:14)
[2021-10-10] MEDS: INSULIN SLIDING SCALE (NOVOLOG) 1 VIAL SQ SCH ×4 (06:55→23:01)
[2021-10-10] MEDS: INSULIN (LEVEMIR) 100 UNITS/ML UNITS SQ SCH ×2 (06:56→23:03)
[2021-10-10 07:24] LABS: HEMATOCRIT 30.1 % (35.4-49); HEMOGLOBIN 9.7 GM/dL (11.7-16.9); MCH 28.7 pg (25.7-33.7); MCHC 32.4 g/dl (32.0-35.9); MEAN CELL VOLUME 88.7 fl (80-96); MEAN PLT VOLUME 7.2 fl (7.5-11.1); PLATELET COUNT 423 10^3/uL (134-434); RBC 3.39 M/mm3 (4.00-5.60); RDW 17.4 % (11.9-15.9); WHITE BLOOD COUNT 7.5 K/mm3 (4.0-10.0)
[2021-10-10 07:48] LABS: BLOOD UREA NITROGEN 17.6 mg/dL (7-18); CALCIUM 8.3 mg/dL (8.5-10.1)
[2021-10-10 07:49] LABS: MAGNESIUM 1.8 mg/dL (1.8-2.4)
[2021-10-10 07:51] LABS: CREATININE 1.1 mg/dL (0.55-1.3); PHOSPHOROUS 2.9 mg/dL (2.5-4.9)
[2021-10-10 07:53] LABS: BILIRUBIN,TOTAL 0.8 mg/dL (0.2-1); TOT PROT 5.9 g/dl (6.4-8.2)
[2021-10-10 08:12] LABS: ALBUMIN 2.2 g/dl (3.4-5.0)
[2021-10-10] MEDS: POLYETHYLENE GLYCOL (HEALTHYLAX) 3350 17 GM PACKET PO SCH (09:58)
[2021-10-10] MEDS: AMINO ACIDS/PROTEIN HYDROLYS 30 ML LIQUID.PKT PO SCH ×2 (09:58→18:30)
[2021-10-10] MEDS: ENOXAPARIN NA (PORCINE) 40 MG/0.4 ML DISP.SYRIN SQ SCH (09:59)
[2021-10-10] MEDS: LABETALOL HCL 200 MG TABLET (FP) PO SCH ×2 (09:59→22:56)
[2021-10-10] MEDS: ZINC SULFATE 220 MG CAPSULE (FP) PO SCH ×2 (09:59→23:02)
[2021-10-10] MEDS: DOCUSATE NA 100 MG/10 ML UNIT-DOSE CUPS PO SCH ×2 (09:59→22:55)
[2021-10-10] MEDS: TETRAHYDROZOLINE HCL EYE DROPS OU SCH ×4 (10:00→23:04)
[2021-10-10] MEDS: PANTOPRAZOLE 40 MG TABLET PO SCH (10:00)
[2021-10-10] MEDS: QUEtiapine FUMARATE 50 MG TABLET PO SCH ×2 (10:00→22:57)
[2021-10-10] MEDS: ASCORBIC ACID 500 MG/5 ML UNIT DOSE CUP PO SCH ×2 (10:01→22:56)
[2021-10-10] MEDS: ATORVASTATIN CA 20 MG TABLET (FP) PO SCH (22:56)
[2021-10-10] MEDS: CHLORHEXIDINE GLUCONATE 4% CLEANSER FOR DECOLONIZATION TP SCH (23:04)
[2021-10-11] MEDS: INSULIN SLIDING SCALE (NOVOLOG) 1 VIAL SQ SCH ×4 (06:43→22:17)
[2021-10-11] MEDS: INSULIN (LEVEMIR) 100 UNITS/ML UNITS SQ SCH ×2 (06:44→22:16)
[2021-10-11 08:04] LABS: HEMATOCRIT 30.7 % (35.4-49); HEMOGLOBIN 9.9 GM/dL (11.7-16.9); MCH 28.7 pg (25.7-33.7); MCHC 32.1 g/dl (32.0-35.9); MEAN CELL VOLUME 89.2 fl (80-96); MEAN PLT VOLUME 7.4 fl (7.5-11.1); PLATELET COUNT 420 10^3/uL (134-434); RBC 3.44 M/mm3 (4.00-5.60); RDW 17.1 % (11.9-15.9); WHITE BLOOD COUNT 8.5 K/mm3 (4.0-10.0)
[2021-10-11 08:31] LABS: CALCIUM 8.6 mg/dL (8.5-10.1)
[2021-10-11 08:32] LABS: BLOOD UREA NITROGEN 18.4 mg/dL (7-18); MAGNESIUM 2.2 mg/dL (1.8-2.4)
[2021-10-11 08:34] LABS: PHOSPHOROUS 2.2 mg/dL (2.5-4.9)
[2021-10-11 08:36] LABS: BILIRUBIN,TOTAL 0.8 mg/dL (0.2-1)
[2021-10-11] MEDS ORDERED: PT OWN MED DRAWER 7, Y5N ONE (08:38)
[2021-10-11] MEDS: MULTIVIT-MINERALS ORAL LIQUID PO SCH (10:46)
[2021-10-11] MEDS: ENOXAPARIN NA (PORCINE) 40 MG/0.4 ML DISP.SYRIN SQ SCH (10:47)
[2021-10-11] MEDS: POLYETHYLENE GLYCOL (HEALTHYLAX) 3350 17 GM PACKET PO SCH (10:47)
[2021-10-11] MEDS: DOCUSATE NA 100 MG/10 ML UNIT-DOSE CUPS PO SCH ×2 (10:47→22:16)
[2021-10-11] MEDS: LABETALOL HCL 200 MG TABLET (FP) PO SCH ×2 (10:48→22:16)
[2021-10-11] MEDS: ASCORBIC ACID 500 MG/5 ML UNIT DOSE CUP PO SCH ×2 (10:48→22:17)
[2021-10-11] MEDS: ZINC SULFATE 220 MG CAPSULE (FP) PO SCH ×2 (10:48→22:16)
[2021-10-11] MEDS: PANTOPRAZOLE 40 MG TABLET PO SCH (10:48)
[2021-10-11] MEDS: TETRAHYDROZOLINE HCL EYE DROPS OU SCH ×4 (10:48→22:16)
[2021-10-11] MEDS: AMINO ACIDS/PROTEIN HYDROLYS 30 ML LIQUID.PKT PO SCH ×2 (10:54→17:30)
[2021-10-11] MEDS: QUEtiapine FUMARATE 50 MG TABLET PO SCH ×2 (12:23→22:16)
[2021-10-11] MEDS: NAPH,MB-DB/K PH,MBDB POWDER PACKET PO SCH ×2 (18:02→22:16)
[2021-10-11] MEDS: ATORVASTATIN CA 20 MG TABLET (FP) PO SCH (22:16)
[2021-10-11] MEDS: CHLORHEXIDINE GLUCONATE 4% CLEANSER FOR DECOLONIZATION TP SCH (22:16)
[2021-10-12] MEDS ORDERED: PT OWN MED DRAWER 7, Y5N ONE ×3 (05:18→21:24)
[2021-10-12] MEDS: INSULIN SLIDING SCALE (NOVOLOG) 1 VIAL SQ SCH ×5 (06:27→22:37)
[2021-10-12] MEDS: INSULIN (LEVEMIR) 100 UNITS/ML UNITS SQ SCH ×2 (06:27→22:37)
[2021-10-12 06:59] LABS: HEMATOCRIT 29.4 % (35.4-49); HEMOGLOBIN 9.9 GM/dL (11.7-16.9); MCH 29.6 pg (25.7-33.7); MCHC 33.6 g/dl (32.0-35.9); MEAN PLT VOLUME 7.2 fl (7.5-11.1); PLATELET COUNT 363 10^3/uL (134-434); RBC 3.34 M/mm3 (4.00-5.60); RDW 17.3 % (11.9-15.9); WHITE BLOOD COUNT 7.3 K/mm3 (4.0-10.0)
[2021-10-12 07:17] LABS: CALCIUM 8.1 mg/dL (8.5-10.1)
[2021-10-12 07:18] LABS: MAGNESIUM 1.8 mg/dL (1.8-2.4)
[2021-10-12 07:19] LABS: BLOOD UREA NITROGEN 19.1 mg/dL (7-18)
[2021-10-12 07:21] LABS: PHOSPHOROUS 2.2 mg/dL (2.5-4.9)
[2021-10-12 07:23] LABS: BILIRUBIN,TOTAL 0.7 mg/dL (0.2-1); TOT PROT 6.1 g/dl (6.4-8.2)
[2021-10-12] MEDS: DOCUSATE NA 100 MG/10 ML UNIT-DOSE CUPS PO SCH ×2 (09:33→22:17)
[2021-10-12] MEDS: POLYETHYLENE GLYCOL (HEALTHYLAX) 3350 17 GM PACKET PO SCH (09:33)
[2021-10-12] MEDS: MULTIVIT-MINERALS ORAL LIQUID PO SCH (09:33)
[2021-10-12] MEDS: ASCORBIC ACID 500 MG/5 ML UNIT DOSE CUP PO SCH ×2 (09:34→22:16)
[2021-10-12] MEDS: ZINC SULFATE 220 MG CAPSULE (FP) PO SCH ×2 (09:34→22:17)
[2021-10-12] MEDS: QUEtiapine FUMARATE 50 MG TABLET PO SCH ×2 (09:34→22:18)
[2021-10-12] MEDS: AMINO ACIDS/PROTEIN HYDROLYS 30 ML LIQUID.PKT PO SCH ×2 (09:34→17:25)
[2021-10-12] MEDS: LABETALOL HCL 200 MG TABLET (FP) PO SCH ×2 (09:34→22:17)
[2021-10-12] MEDS: ENOXAPARIN NA (PORCINE) 40 MG/0.4 ML DISP.SYRIN SQ SCH (09:34)
[2021-10-12] MEDS: PANTOPRAZOLE 40 MG TABLET PO SCH (09:34)
[2021-10-12] MEDS: TETRAHYDROZOLINE HCL EYE DROPS OU SCH ×4 (09:35→22:18)
[2021-10-12] MEDS ORDERED: QUEtiapine FUMARATE 25 MG TABLET ONE (21:17)
[2021-10-12] MEDS: ATORVASTATIN CA 20 MG TABLET (FP) PO SCH (22:17)
[2021-10-13] MEDS: CHLORHEXIDINE GLUCONATE 4% CLEANSER FOR DECOLONIZATION TP SCH (01:53)
[2021-10-13] MEDS: INSULIN (LEVEMIR) 100 UNITS/ML UNITS SQ SCH ×2 (06:01→21:14)
[2021-10-13] MEDS: INSULIN SLIDING SCALE (NOVOLOG) 1 VIAL SQ SCH ×4 (06:02→21:15)
[2021-10-13 08:45] LABS: HEMATOCRIT 30.4 % (35.4-49); HEMOGLOBIN 10.1 GM/dL (11.7-16.9); MCH 28.9 pg (25.7-33.7); MCHC 33.4 g/dl (32.0-35.9); MEAN CELL VOLUME 86.7 fl (80-96); PLATELET COUNT 365 10^3/uL (134-434); RBC 3.51 M/mm3 (4.00-5.60); RDW 17.2 % (11.9-15.9)
[2021-10-13 09:12] LABS: ALBUMIN 2.1 g/dl (3.4-5.0); BLOOD UREA NITROGEN 17.5 mg/dL (7-18); CALCIUM 8.7 mg/dL (8.5-10.1)
[2021-10-13 09:13] LABS: MAGNESIUM 2.2 mg/dL (1.8-2.4)
[2021-10-13 09:15] LABS: PHOSPHOROUS 2.5 mg/dL (2.5-4.9)
[2021-10-13 09:17] LABS: BILIRUBIN,TOTAL 0.9 mg/dL (0.2-1); TOT PROT 6.5 g/dl (6.4-8.2)
[2021-10-13] MEDS ORDERED: PT OWN MED DRAWER 7, Y5N ONE ×2 (09:54→21:02)
[2021-10-13] MEDS ORDERED: QUEtiapine FUMARATE 25 MG TABLET ONE ×2 (09:54→21:01)
[2021-10-13] MEDS: POLYETHYLENE GLYCOL (HEALTHYLAX) 3350 17 GM PACKET PO SCH (09:55)
[2021-10-13] MEDS: ZINC SULFATE 220 MG CAPSULE (FP) PO SCH ×2 (09:55→21:16)
[2021-10-13] MEDS: DOCUSATE NA 100 MG/10 ML UNIT-DOSE CUPS PO SCH ×2 (09:55→21:16)
[2021-10-13] MEDS: PANTOPRAZOLE 40 MG TABLET PO SCH (09:55)
[2021-10-13] MEDS: LABETALOL HCL 200 MG TABLET (FP) PO SCH ×2 (09:55→21:16)
[2021-10-13] MEDS: ENOXAPARIN NA (PORCINE) 40 MG/0.4 ML DISP.SYRIN SQ SCH (09:56)
[2021-10-13] MEDS: ASCORBIC ACID 500 MG/5 ML UNIT DOSE CUP PO SCH ×2 (09:56→21:15)
[2021-10-13] MEDS: AMINO ACIDS/PROTEIN HYDROLYS 30 ML LIQUID.PKT PO SCH ×2 (09:56→17:19)
[2021-10-13] MEDS: QUEtiapine FUMARATE 50 MG TABLET PO SCH ×2 (09:56→21:15)
[2021-10-13] MEDS: TETRAHYDROZOLINE HCL EYE DROPS OU SCH ×4 (09:57→21:16)
[2021-10-13] MEDS: MULTIVIT-MINERALS ORAL LIQUID PO SCH (09:57)
[2021-10-13] MEDS: ATORVASTATIN CA 20 MG TABLET (FP) PO SCH (21:16)
[2021-10-14] MEDS: INSULIN SLIDING SCALE (NOVOLOG) 1 VIAL SQ SCH ×4 (06:25→21:13)
[2021-10-14] MEDS: INSULIN (LEVEMIR) 100 UNITS/ML UNITS SQ SCH ×2 (06:26→21:13)
[2021-10-14 07:51] LABS: HEMOGLOBIN 9.5 GM/dL (11.7-16.9); MCH 28.8 pg (25.7-33.7); MCHC 32.8 g/dl (32.0-35.9); MEAN PLT VOLUME 7.8 fl (7.5-11.1); PLATELET COUNT 352 10^3/uL (134-434); RDW 16.8 % (11.9-15.9); WHITE BLOOD COUNT 8.6 K/mm3 (4.0-10.0)
[2021-10-14] MEDS: AMINO ACIDS/PROTEIN HYDROLYS 30 ML LIQUID.PKT PO SCH ×2 (08:34→17:35)
[2021-10-14 08:40] LABS: BILIRUBIN,TOTAL 0.9 mg/dL (0.2-1); BLOOD UREA NITROGEN 18.6 mg/dL (7-18); CALCIUM 8.2 mg/dL (8.5-10.1); CREATININE 0.9 mg/dL (0.55-1.3); PHOSPHOROUS 2.7 mg/dL (2.5-4.9); TOT PROT 6.3 g/dl (6.4-8.2)
[2021-10-14] MEDS ORDERED: QUEtiapine FUMARATE 25 MG TABLET ONE ×2 (09:40→20:58)
[2021-10-14] MEDS ORDERED: PT OWN MED DRAWER 7, Y5N ONE ×4 (09:42→20:58)
[2021-10-14] MEDS: DOCUSATE NA 100 MG/10 ML UNIT-DOSE CUPS PO SCH (10:33)
[2021-10-14] MEDS: POLYETHYLENE GLYCOL (HEALTHYLAX) 3350 17 GM PACKET PO SCH (10:33)
[2021-10-14] MEDS: MULTIVIT-MINERALS ORAL LIQUID PO SCH (10:33)
[2021-10-14] MEDS: PANTOPRAZOLE 40 MG TABLET PO SCH (10:34)
[2021-10-14] MEDS: ASCORBIC ACID 500 MG/5 ML UNIT DOSE CUP PO SCH ×2 (10:34→21:13)
[2021-10-14] MEDS: ZINC SULFATE 220 MG CAPSULE (FP) PO SCH ×2 (10:34→21:12)
[2021-10-14] MEDS: LABETALOL HCL 200 MG TABLET (FP) PO SCH ×2 (10:34→21:13)
[2021-10-14] MEDS: QUEtiapine FUMARATE 50 MG TABLET PO SCH ×2 (10:35→21:13)
[2021-10-14] MEDS: TETRAHYDROZOLINE HCL EYE DROPS OU SCH ×4 (10:36→21:13)
[2021-10-14] MEDS: ATORVASTATIN CA 20 MG TABLET (FP) PO SCH (21:12)
[2021-10-14] MEDS: DOCUSATE SODIUM 100 MG CAPSULE (FP) PO SCH (21:12)
[2021-10-14] MEDS ORDERED: ACETAMINOPHEN 1000 MG/100 ML BAG IVPB PRN (23:05)
[2021-10-14] MEDS ORDERED: ACETAMINOPHEN INJECTION 100 ML IVPB ONE (23:27)
[2021-10-15] MEDS: INSULIN SLIDING SCALE (NOVOLOG) 1 VIAL SQ SCH ×4 (06:34→21:53)
[2021-10-15] MEDS: INSULIN (LEVEMIR) 100 UNITS/ML UNITS SQ SCH ×2 (06:34→21:51)
[2021-10-15 09:05] LABS: HEMATOCRIT 29.2 % (35.4-49); HEMOGLOBIN 9.5 GM/dL (11.7-16.9); MCH 28.7 pg (25.7-33.7); MCHC 32.6 g/dl (32.0-35.9); MEAN CELL VOLUME 88.2 fl (80-96); MEAN PLT VOLUME 7.6 fl (7.5-11.1); PLATELET COUNT 315 10^3/uL (134-434); RDW 16.9 % (11.9-15.9); WHITE BLOOD COUNT 7.8 K/mm3 (4.0-10.0)
[2021-10-15 09:34] LABS: BLOOD UREA NITROGEN 17.6 mg/dL (7-18); CALCIUM 8.7 mg/dL (8.5-10.1); MAGNESIUM 2.3 mg/dL (1.8-2.4)
[2021-10-15 09:38] LABS: PHOSPHOROUS 3.7 mg/dL (2.5-4.9)
[2021-10-15] MEDS ORDERED: QUEtiapine FUMARATE 25 MG TABLET ONE ×2 (09:52→20:59)
[2021-10-15] MEDS ORDERED: PT OWN MED DRAWER 7, Y5N ONE ×2 (09:53→21:00)
[2021-10-15] MEDS: LABETALOL HCL 200 MG TABLET (FP) PO SCH ×2 (10:07→21:52)
[2021-10-15] MEDS: ZINC SULFATE 220 MG CAPSULE (FP) PO SCH ×2 (10:07→21:52)
[2021-10-15] MEDS: PANTOPRAZOLE 40 MG TABLET PO SCH (10:07)
[2021-10-15] MEDS: AMINO ACIDS/PROTEIN HYDROLYS 30 ML LIQUID.PKT PO SCH ×2 (10:08→17:14)
[2021-10-15] MEDS: ASCORBIC ACID 500 MG/5 ML UNIT DOSE CUP PO SCH ×2 (10:10→21:54)
[2021-10-15] MEDS: MULTIVIT-MINERALS ORAL LIQUID PO SCH (10:10)
[2021-10-15] MEDS: QUEtiapine FUMARATE 50 MG TABLET PO SCH ×2 (10:11→21:53)
[2021-10-15] MEDS: TETRAHYDROZOLINE HCL EYE DROPS OU SCH ×4 (10:11→21:54)
[2021-10-15] MEDS: POLYETHYLENE GLYCOL (HEALTHYLAX) 3350 17 GM PACKET PO SCH (10:23)
[2021-10-15] MEDS: DOCUSATE SODIUM 100 MG CAPSULE (FP) PO SCH ×2 (10:23→21:52)
[2021-10-15] MEDS: ATORVASTATIN CA 20 MG TABLET (FP) PO SCH (21:52)
[2021-10-16] MEDS: INSULIN (LEVEMIR) 100 UNITS/ML UNITS SQ SCH ×2 (06:10→21:32)
[2021-10-16] MEDS: INSULIN SLIDING SCALE (NOVOLOG) 1 VIAL SQ SCH ×4 (06:10→21:31)
[2021-10-16] MEDS ORDERED: QUEtiapine FUMARATE 25 MG TABLET ONE ×2 (10:14→21:06)
[2021-10-16] MEDS: LABETALOL HCL 200 MG TABLET (FP) PO SCH ×2 (10:21→21:24)
[2021-10-16] MEDS: ASCORBIC ACID 500 MG/5 ML UNIT DOSE CUP PO SCH ×2 (10:21→21:25)
[2021-10-16] MEDS: AMINO ACIDS/PROTEIN HYDROLYS 30 ML LIQUID.PKT PO SCH ×2 (10:21→17:23)
[2021-10-16] MEDS: ZINC SULFATE 220 MG CAPSULE (FP) PO SCH ×2 (10:21→21:24)
[2021-10-16] MEDS: PANTOPRAZOLE 40 MG TABLET PO SCH (10:21)
[2021-10-16] MEDS: TETRAHYDROZOLINE HCL EYE DROPS OU SCH ×4 (10:22→21:25)
[2021-10-16] MEDS: POLYETHYLENE GLYCOL (HEALTHYLAX) 3350 17 GM PACKET PO SCH (10:22)
[2021-10-16] MEDS: DOCUSATE SODIUM 100 MG CAPSULE (FP) PO SCH ×2 (10:22→21:24)
[2021-10-16] MEDS: QUEtiapine FUMARATE 50 MG TABLET PO SCH ×2 (10:23→21:25)
[2021-10-16] MEDS: MULTIVIT-MINERALS ORAL LIQUID PO SCH (11:23)
[2021-10-16] MEDS: ATORVASTATIN CA 20 MG TABLET (FP) PO SCH (21:24)
[2021-10-17] MEDS: INSULIN SLIDING SCALE (NOVOLOG) 1 VIAL SQ SCH ×4 (06:44→21:52)
[2021-10-17] MEDS: INSULIN (LEVEMIR) 100 UNITS/ML UNITS SQ SCH ×2 (06:44→21:52)
[2021-10-17] MEDS ORDERED: ARTIFICIAL TEARS (POLYVINYL ALCOHOL) OPTH DROPS OU PRN (07:46)
[2021-10-17] MEDS ORDERED: QUEtiapine FUMARATE 25 MG TABLET ONE ×2 (08:50→21:38)
[2021-10-17 09:06] LABS: BASO % 0.4 % (0-2.0); EOS % 6.3 % (0-4.5); HEMATOCRIT 29.1 % (35.4-49); HEMOGLOBIN 9.5 GM/dL (11.7-16.9); LYMPH % 23.1 % (8-40); MCH 28.5 pg (25.7-33.7); MCHC 32.6 g/dl (32.0-35.9); MEAN CELL VOLUME 87.3 fl (80-96); MEAN PLT VOLUME 7.3 fl (7.5-11.1); MONO % 9.1 % (3.8-10.2); NEUT % 61.1 % (42.8-82.8); PLATELET COUNT 334 10^3/uL (134-434); RBC 3.33 M/mm3 (4.00-5.60); RDW 17.2 % (11.9-15.9); WHITE BLOOD COUNT 9.4 K/mm3 (4.0-10.0)
[2021-10-17 09:21] LABS: CALCIUM 8.7 mg/dL (8.5-10.1)
[2021-10-17 09:22] LABS: BLOOD UREA NITROGEN 17.2 mg/dL (7-18); MAGNESIUM 2.1 mg/dL (1.8-2.4)
[2021-10-17 09:25] LABS: CREATININE 0.9 mg/dL (0.55-1.3); PHOSPHOROUS 2.9 mg/dL (2.5-4.9)
[2021-10-17] MEDS: ASCORBIC ACID 500 MG/5 ML UNIT DOSE CUP PO SCH ×2 (09:28→21:51)
[2021-10-17] MEDS: AMINO ACIDS/PROTEIN HYDROLYS 30 ML LIQUID.PKT PO SCH ×2 (09:28→17:08)
[2021-10-17] MEDS: QUEtiapine FUMARATE 50 MG TABLET PO SCH ×2 (09:28→21:50)
[2021-10-17] MEDS: MULTIVIT-MINERALS ORAL LIQUID PO SCH (09:28)
[2021-10-17] MEDS: POLYETHYLENE GLYCOL (HEALTHYLAX) 3350 17 GM PACKET PO SCH (09:28)
[2021-10-17] MEDS: LABETALOL HCL 200 MG TABLET (FP) PO SCH ×2 (09:29→21:50)
[2021-10-17] MEDS: PANTOPRAZOLE 40 MG TABLET PO SCH (09:29)
[2021-10-17] MEDS: ZINC SULFATE 220 MG CAPSULE (FP) PO SCH ×2 (09:29→21:51)
[2021-10-17] MEDS: DOCUSATE SODIUM 100 MG CAPSULE (FP) PO SCH ×2 (09:29→21:51)
[2021-10-17] MEDS: ATORVASTATIN CA 20 MG TABLET (FP) PO SCH (21:50)
[2021-10-18] MEDS: INSULIN (LEVEMIR) 100 UNITS/ML UNITS SQ SCH ×2 (06:16→21:20)
[2021-10-18] MEDS: INSULIN SLIDING SCALE (NOVOLOG) 1 VIAL SQ SCH ×4 (06:16→21:21)
[2021-10-18 08:07] LABS: BASO % 0.8 % (0-2.0); EOS % 7.5 % (0-4.5); HEMATOCRIT 28.2 % (35.4-49); HEMOGLOBIN 9.3 GM/dL (11.7-16.9); LYMPH % 25.2 % (8-40); MCH 28.7 pg (25.7-33.7); MEAN PLT VOLUME 7.2 fl (7.5-11.1); MONO % 9.6 % (3.8-10.2); NEUT % 56.9 % (42.8-82.8); PLATELET COUNT 319 10^3/uL (134-434); RBC 3.24 M/mm3 (4.00-5.60); RDW 17.1 % (11.9-15.9); WHITE BLOOD COUNT 8.9 K/mm3 (4.0-10.0)
[2021-10-18 08:45] LABS: CALCIUM 8.8 mg/dL (8.5-10.1); CREATININE 0.9 mg/dL (0.55-1.3); MAGNESIUM 2.2 mg/dL (1.8-2.4); PHOSPHOROUS 2.9 mg/dL (2.5-4.9)
[2021-10-18] MEDS ORDERED: QUEtiapine FUMARATE 25 MG TABLET ONE ×2 (09:44→21:09)
[2021-10-18] MEDS: AMINO ACIDS/PROTEIN HYDROLYS 30 ML LIQUID.PKT PO SCH ×2 (09:53→17:18)
[2021-10-18] MEDS: ASCORBIC ACID 500 MG/5 ML UNIT DOSE CUP PO SCH ×2 (09:54→21:20)
[2021-10-18] MEDS: QUEtiapine FUMARATE 50 MG TABLET PO SCH ×2 (09:54→21:20)
[2021-10-18] MEDS: MULTIVIT-MINERALS ORAL LIQUID PO SCH (09:54)
[2021-10-18] MEDS: LABETALOL HCL 200 MG TABLET (FP) PO SCH ×2 (09:55→21:19)
[2021-10-18] MEDS: DOCUSATE SODIUM 100 MG CAPSULE (FP) PO SCH ×2 (09:55→21:20)
[2021-10-18] MEDS: ZINC SULFATE 220 MG CAPSULE (FP) PO SCH ×2 (09:55→21:20)
[2021-10-18] MEDS: POLYETHYLENE GLYCOL (HEALTHYLAX) 3350 17 GM PACKET PO SCH (09:55)
[2021-10-18] MEDS: PANTOPRAZOLE 40 MG TABLET PO SCH (09:55)
[2021-10-18] MEDS: ATORVASTATIN CA 20 MG TABLET (FP) PO SCH (21:20)
[2021-10-19] MEDS: INSULIN (LEVEMIR) 100 UNITS/ML UNITS SQ SCH ×2 (06:40→21:19)
[2021-10-19] MEDS: INSULIN SLIDING SCALE (NOVOLOG) 1 VIAL SQ SCH ×4 (06:40→22:31)
[2021-10-19 08:31] LABS: BASO % 0.6 % (0-2.0); EOS % 7.4 % (0-4.5); HEMATOCRIT 27.9 % (35.4-49); HEMOGLOBIN 9.3 GM/dL (11.7-16.9); LYMPH % 29.5 % (8-40); MCH 28.8 pg (25.7-33.7); MCHC 33.3 g/dl (32.0-35.9); MEAN CELL VOLUME 86.7 fl (80-96); MEAN PLT VOLUME 7.1 fl (7.5-11.1); MONO % 9.1 % (3.8-10.2); NEUT % 53.4 % (42.8-82.8); PLATELET COUNT 326 10^3/uL (134-434); RBC 3.22 M/mm3 (4.00-5.60); WHITE BLOOD COUNT 9.7 K/mm3 (4.0-10.0)
[2021-10-19] MEDS: AMINO ACIDS/PROTEIN HYDROLYS 30 ML LIQUID.PKT PO SCH ×2 (08:47→17:28)
[2021-10-19 08:54] LABS: CALCIUM 8.5 mg/dL (8.5-10.1); MAGNESIUM 1.8 mg/dL (1.8-2.4)
[2021-10-19 08:55] LABS: BLOOD UREA NITROGEN 15.1 mg/dL (7-18)
[2021-10-19 08:57] LABS: CREATININE 0.9 mg/dL (0.55-1.3); PHOSPHOROUS 2.9 mg/dL (2.5-4.9)
[2021-10-19] MEDS ORDERED: QUEtiapine FUMARATE 25 MG TABLET ONE ×2 (09:18→21:08)
[2021-10-19] MEDS: DOCUSATE SODIUM 100 MG CAPSULE (FP) PO SCH ×2 (10:30→21:19)
[2021-10-19] MEDS: ASCORBIC ACID 500 MG/5 ML UNIT DOSE CUP PO SCH ×2 (10:30→21:20)
[2021-10-19] MEDS: MULTIVIT-MINERALS ORAL LIQUID PO SCH (10:30)
[2021-10-19] MEDS: ZINC SULFATE 220 MG CAPSULE (FP) PO SCH ×2 (10:31→21:19)
[2021-10-19] MEDS: LABETALOL HCL 200 MG TABLET (FP) PO SCH ×2 (10:31→21:19)
[2021-10-19] MEDS: QUEtiapine FUMARATE 50 MG TABLET PO SCH ×2 (10:32→21:20)
[2021-10-19] MEDS: PANTOPRAZOLE 40 MG TABLET PO SCH (10:32)
[2021-10-19] MEDS: POLYETHYLENE GLYCOL (HEALTHYLAX) 3350 17 GM PACKET PO SCH (10:32)
[2021-10-19] MEDS: ATORVASTATIN CA 20 MG TABLET (FP) PO SCH (21:19)
[2021-10-20] MEDS: INSULIN SLIDING SCALE (NOVOLOG) 1 VIAL SQ SCH ×4 (06:35→21:31)
[2021-10-20] MEDS: INSULIN (LEVEMIR) 100 UNITS/ML UNITS SQ SCH ×2 (06:36→21:31)
[2021-10-20] MEDS: AMINO ACIDS/PROTEIN HYDROLYS 30 ML LIQUID.PKT PO SCH ×2 (08:22→16:58)
[2021-10-20] MEDS ORDERED: QUEtiapine FUMARATE 25 MG TABLET ONE ×2 (09:46→21:17)
[2021-10-20] MEDS: ZINC SULFATE 220 MG CAPSULE (FP) PO SCH ×2 (10:00→21:29)
[2021-10-20] MEDS: POLYETHYLENE GLYCOL (HEALTHYLAX) 3350 17 GM PACKET PO SCH (10:00)
[2021-10-20] MEDS: PANTOPRAZOLE 40 MG TABLET PO SCH (10:00)
[2021-10-20] MEDS: LABETALOL HCL 200 MG TABLET (FP) PO SCH ×2 (10:00→21:29)
[2021-10-20] MEDS: MULTIVIT-MINERALS ORAL LIQUID PO SCH (10:00)
[2021-10-20] MEDS: DOCUSATE SODIUM 100 MG CAPSULE (FP) PO SCH ×2 (10:00→21:30)
[2021-10-20] MEDS: ASCORBIC ACID 500 MG/5 ML UNIT DOSE CUP PO SCH ×2 (10:00→21:29)
[2021-10-20] MEDS: QUEtiapine FUMARATE 50 MG TABLET PO SCH ×2 (10:01→21:29)
[2021-10-20 10:10] LABS: BASO % 0.6 % (0-2.0); EOS % 7.4 % (0-4.5); HEMATOCRIT 28.6 % (35.4-49); HEMOGLOBIN 9.3 GM/dL (11.7-16.9); LYMPH % 25.9 % (8-40); MCH 28.7 pg (25.7-33.7); MCHC 32.6 g/dl (32.0-35.9); MEAN CELL VOLUME 88.2 fl (80-96); MEAN PLT VOLUME 7.3 fl (7.5-11.1); MONO % 6.8 % (3.8-10.2); NEUT % 59.3 % (42.8-82.8); PLATELET COUNT 373 10^3/uL (134-434); RBC 3.24 M/mm3 (4.00-5.60); RDW 17.3 % (11.9-15.9); WHITE BLOOD COUNT 10.7 K/mm3 (4.0-10.0)
[2021-10-20] MEDS ORDERED: MAGNESIUM OXIDE 400 MG TABLET (FP) PO ONE (12:24)
[2021-10-20] MEDS: ATORVASTATIN CA 20 MG TABLET (FP) PO SCH (21:29)
[2021-10-21] MEDS: INSULIN (LEVEMIR) 100 UNITS/ML UNITS SQ SCH ×2 (06:01→21:43)
[2021-10-21] MEDS: INSULIN SLIDING SCALE (NOVOLOG) 1 VIAL SQ SCH ×5 (06:01→21:43)
[2021-10-21] MEDS: AMINO ACIDS/PROTEIN HYDROLYS 30 ML LIQUID.PKT PO SCH ×2 (08:24→17:02)
[2021-10-21] MEDS ORDERED: QUEtiapine FUMARATE 25 MG TABLET ONE ×2 (09:18→21:26)
[2021-10-21] MEDS: QUEtiapine FUMARATE 50 MG TABLET PO SCH ×2 (10:03→21:43)
[2021-10-21] MEDS: ASCORBIC ACID 500 MG/5 ML UNIT DOSE CUP PO SCH ×2 (10:03→21:43)
[2021-10-21] MEDS: DOCUSATE SODIUM 100 MG CAPSULE (FP) PO SCH ×2 (10:03→21:36)
[2021-10-21] MEDS: PANTOPRAZOLE 40 MG TABLET PO SCH (10:03)
[2021-10-21] MEDS: POLYETHYLENE GLYCOL (HEALTHYLAX) 3350 17 GM PACKET PO SCH (10:03)
[2021-10-21] MEDS: MULTIVIT-MINERALS ORAL LIQUID PO SCH (10:03)
[2021-10-21] MEDS: ZINC SULFATE 220 MG CAPSULE (FP) PO SCH ×2 (10:03→21:42)
[2021-10-21] MEDS: LABETALOL HCL 200 MG TABLET (FP) PO SCH ×2 (10:03→21:43)
[2021-10-21 10:07] LABS: BASO % 0.9 % (0-2.0); EOS % 9.3 % (0-4.5); HEMATOCRIT 28.9 % (35.4-49); HEMOGLOBIN 9.1 GM/dL (11.7-16.9); LYMPH % 28.8 % (8-40); MCH 27.8 pg (25.7-33.7); MCHC 31.5 g/dl (32.0-35.9); MEAN CELL VOLUME 88.2 fl (80-96); MEAN PLT VOLUME 7.4 fl (7.5-11.1); MONO % 10.9 % (3.8-10.2); NEUT % 50.1 % (42.8-82.8); PLATELET COUNT 429 10^3/uL (134-434); RBC 3.27 M/mm3 (4.00-5.60); RDW 17.2 % (11.9-15.9); WHITE BLOOD COUNT 9.6 K/mm3 (4.0-10.0)
[2021-10-21 10:49] LABS: CALCIUM 8.8 mg/dL (8.5-10.1)
[2021-10-21 10:50] LABS: ALBUMIN 2.1 g/dl (3.4-5.0); BLOOD UREA NITROGEN 12.6 mg/dL (7-18); MAGNESIUM 2.2 mg/dL (1.8-2.4)
[2021-10-21 10:52] LABS: CREATININE 0.9 mg/dL (0.55-1.3)
[2021-10-21 10:54] LABS: TOT PROT 6.8 g/dl (6.4-8.2)
[2021-10-21 10:55] LABS: BILIRUBIN,TOTAL 0.4 mg/dL (0.2-1)
[2021-10-21] MEDS: prednisoLONE ACETATE 1% OPHTH SUSP 5 ML BOTTLE OS SCH (21:42)
[2021-10-21] MEDS: ATORVASTATIN CA 20 MG TABLET (FP) PO SCH (21:43)
[2021-10-22] MEDS: INSULIN SLIDING SCALE (NOVOLOG) 1 VIAL SQ SCH ×4 (06:44→22:20)
[2021-10-22] MEDS: INSULIN (LEVEMIR) 100 UNITS/ML UNITS SQ SCH ×2 (06:45→22:20)
[2021-10-22] MEDS ORDERED: QUEtiapine FUMARATE 25 MG TABLET ONE ×2 (09:30→22:15)
[2021-10-22] MEDS: AMINO ACIDS/PROTEIN HYDROLYS 30 ML LIQUID.PKT PO SCH ×2 (11:02→17:18)
[2021-10-22] MEDS: PANTOPRAZOLE 40 MG TABLET PO SCH (11:03)
[2021-10-22] MEDS: DOCUSATE SODIUM 100 MG CAPSULE (FP) PO SCH ×2 (11:04→22:20)
[2021-10-22] MEDS: LABETALOL HCL 200 MG TABLET (FP) PO SCH ×2 (11:04→22:19)
[2021-10-22] MEDS: QUEtiapine FUMARATE 50 MG TABLET PO SCH ×2 (11:04→22:20)
[2021-10-22] MEDS: ZINC SULFATE 220 MG CAPSULE (FP) PO SCH ×2 (11:04→22:20)
[2021-10-22] MEDS: POLYETHYLENE GLYCOL (HEALTHYLAX) 3350 17 GM PACKET PO SCH (11:05)
[2021-10-22] MEDS: MULTIVIT-MINERALS ORAL LIQUID PO SCH (11:05)
[2021-10-22] MEDS: ASCORBIC ACID 500 MG/5 ML UNIT DOSE CUP PO SCH ×2 (11:05→22:20)
[2021-10-22] MEDS ORDERED: diazePAM 5 MG TABLET PO ONE (13:09)
[2021-10-22] MEDS ORDERED: ENOXAPARIN NA (PORCINE) 40 MG/0.4 ML DISP.SYRIN SQ SCH (18:00)
[2021-10-22] MEDS: ENOXAPARIN NA (PORCINE) 40 MG/0.4 ML DISP.SYRIN SQ SCH ×2 (18:38→19:17)
[2021-10-22] MEDS: ATORVASTATIN CA 20 MG TABLET (FP) PO SCH (22:20)
[2021-10-22] MEDS: prednisoLONE ACETATE 1% OPHTH SUSP 5 ML BOTTLE OS SCH (22:21)
[2021-10-23] MEDS: INSULIN (LEVEMIR) 100 UNITS/ML UNITS SQ SCH ×2 (06:23→21:38)
[2021-10-23] MEDS: INSULIN SLIDING SCALE (NOVOLOG) 1 VIAL SQ SCH ×4 (06:23→21:39)
[2021-10-23 09:17] LABS: ALBUMIN 2.2 g/dl (3.4-5.0); BLOOD UREA NITROGEN 11.3 mg/dL (7-18); CALCIUM 8.9 mg/dL (8.5-10.1); MAGNESIUM 1.9 mg/dL (1.8-2.4)
[2021-10-23 09:19] LABS: PHOSPHOROUS 2.9 mg/dL (2.5-4.9)
[2021-10-23 09:21] LABS: CREATININE 0.8 mg/dL (0.55-1.3)
[2021-10-23 09:22] LABS: BILIRUBIN,TOTAL 0.7 mg/dL (0.2-1); TOT PROT 6.8 g/dl (6.4-8.2)
[2021-10-23] MEDS ORDERED: QUEtiapine FUMARATE 25 MG TABLET ONE (09:39)
[2021-10-23] MEDS: ENOXAPARIN NA (PORCINE) 40 MG/0.4 ML DISP.SYRIN SQ SCH (09:55)
[2021-10-23] MEDS: ZINC SULFATE 220 MG CAPSULE (FP) PO SCH ×2 (09:56→21:38)
[2021-10-23] MEDS: LABETALOL HCL 200 MG TABLET (FP) PO SCH ×2 (09:56→21:38)
[2021-10-23] MEDS: PANTOPRAZOLE 40 MG TABLET PO SCH (09:56)
[2021-10-23] MEDS: ASCORBIC ACID 500 MG/5 ML UNIT DOSE CUP PO SCH ×2 (09:57→21:39)
[2021-10-23] MEDS: AMINO ACIDS/PROTEIN HYDROLYS 30 ML LIQUID.PKT PO SCH ×2 (09:57→17:29)
[2021-10-23] MEDS: QUEtiapine FUMARATE 50 MG TABLET PO SCH ×2 (09:57→21:38)
[2021-10-23] MEDS: POLYETHYLENE GLYCOL (HEALTHYLAX) 3350 17 GM PACKET PO SCH (09:58)
[2021-10-23] MEDS: MULTIVIT-MINERALS ORAL LIQUID PO SCH (09:58)
[2021-10-23] MEDS: DOCUSATE SODIUM 100 MG CAPSULE (FP) PO SCH ×2 (10:03→21:38)
[2021-10-23] MEDS: ATORVASTATIN CA 20 MG TABLET (FP) PO SCH (21:38)
[2021-10-23] MEDS: prednisoLONE ACETATE 1% OPHTH SUSP 5 ML BOTTLE OS SCH (21:39)
[2021-10-24] MEDS: INSULIN (LEVEMIR) 100 UNITS/ML UNITS SQ SCH ×2 (06:12→21:00)
[2021-10-24] MEDS: INSULIN SLIDING SCALE (NOVOLOG) 1 VIAL SQ SCH ×4 (06:13→21:08)
[2021-10-24 06:48] LABS: EOS % 12.4 % (0-4.5); HEMATOCRIT 26.9 % (35.4-49); HEMOGLOBIN 8.6 GM/dL (11.7-16.9); LYMPH % 30.8 % (8-40); MCH 28.1 pg (25.7-33.7); MEAN CELL VOLUME 87.8 fl (80-96); MEAN PLT VOLUME 7.1 fl (7.5-11.1); MONO % 10.9 % (3.8-10.2); NEUT % 44.9 % (42.8-82.8); PLATELET COUNT 478 10^3/uL (134-434); RBC 3.06 M/mm3 (4.00-5.60); RDW 17.4 % (11.9-15.9)
[2021-10-24 07:24] LABS: BLOOD UREA NITROGEN 13.6 mg/dL (7-18); CALCIUM 8.6 mg/dL (8.5-10.1); MAGNESIUM 1.7 mg/dL (1.8-2.4)
[2021-10-24 07:28] LABS: CREATININE 0.9 mg/dL (0.55-1.3); PHOSPHOROUS 3.5 mg/dL (2.5-4.9)
[2021-10-24] MEDS: AMINO ACIDS/PROTEIN HYDROLYS 30 ML LIQUID.PKT PO SCH ×2 (08:35→17:19)
[2021-10-24] MEDS ORDERED: MAGNESIUM 2GM/50ML STERILE WATER IVPB IVPB ONE (08:48)
[2021-10-24] MEDS ORDERED: QUEtiapine FUMARATE 25 MG TABLET ONE ×2 (09:00→20:58)
[2021-10-24] MEDS: MULTIVIT-MINERALS ORAL LIQUID PO SCH (09:56)
[2021-10-24] MEDS: POLYETHYLENE GLYCOL (HEALTHYLAX) 3350 17 GM PACKET PO SCH (09:57)
[2021-10-24] MEDS: LABETALOL HCL 200 MG TABLET (FP) PO SCH ×2 (09:57→21:07)
[2021-10-24] MEDS: ZINC SULFATE 220 MG CAPSULE (FP) PO SCH ×2 (09:57→21:07)
[2021-10-24] MEDS: ENOXAPARIN NA (PORCINE) 40 MG/0.4 ML DISP.SYRIN SQ SCH (09:57)
[2021-10-24] MEDS: ASCORBIC ACID 500 MG/5 ML UNIT DOSE CUP PO SCH ×2 (09:57→21:07)
[2021-10-24] MEDS: PANTOPRAZOLE 40 MG TABLET PO SCH (09:57)
[2021-10-24] MEDS: DOCUSATE SODIUM 100 MG CAPSULE (FP) PO SCH ×2 (09:58→21:08)
[2021-10-24] MEDS: QUEtiapine FUMARATE 50 MG TABLET PO SCH ×3 (09:58→21:16)
[2021-10-24] MEDS ORDERED: NAPH,MB-DB/K PH,MBDB POWDER PACKET PO ONE (17:17)
[2021-10-24] MEDS: ATORVASTATIN CA 20 MG TABLET (FP) PO SCH (21:07)
[2021-10-24] MEDS: prednisoLONE ACETATE 1% OPHTH SUSP 5 ML BOTTLE OS SCH (21:09)
[2021-10-25] MEDS: INSULIN (LEVEMIR) 100 UNITS/ML UNITS SQ SCH ×2 (06:43→21:36)
[2021-10-25] MEDS: INSULIN SLIDING SCALE (NOVOLOG) 1 VIAL SQ SCH ×4 (06:44→21:35)
[2021-10-25 09:13] LABS: BASO % 0.9 % (0-2.0); EOS % 12.2 % (0-4.5); HEMATOCRIT 28.2 % (35.4-49); HEMOGLOBIN 8.9 GM/dL (11.7-16.9); LYMPH % 30.6 % (8-40); MCH 27.7 pg (25.7-33.7); MCHC 31.7 g/dl (32.0-35.9); MEAN CELL VOLUME 87.5 fl (80-96); MEAN PLT VOLUME 7.1 fl (7.5-11.1); MONO % 9.1 % (3.8-10.2); NEUT % 47.2 % (42.8-82.8); PLATELET COUNT 506 10^3/uL (134-434); RBC 3.22 M/mm3 (4.00-5.60); RDW 17.7 % (11.9-15.9)
[2021-10-25] MEDS ORDERED: QUEtiapine FUMARATE 25 MG TABLET ONE ×2 (09:23→21:06)
[2021-10-25] MEDS: LABETALOL HCL 200 MG TABLET (FP) PO SCH ×2 (09:29→21:33)
[2021-10-25] MEDS: ZINC SULFATE 220 MG CAPSULE (FP) PO SCH ×2 (09:29→21:33)
[2021-10-25] MEDS: AMINO ACIDS/PROTEIN HYDROLYS 30 ML LIQUID.PKT PO SCH ×2 (09:29→16:41)
[2021-10-25] MEDS: ENOXAPARIN NA (PORCINE) 40 MG/0.4 ML DISP.SYRIN SQ SCH (09:29)
[2021-10-25] MEDS: DOCUSATE SODIUM 100 MG CAPSULE (FP) PO SCH ×2 (09:29→21:36)
[2021-10-25] MEDS: PANTOPRAZOLE 40 MG TABLET PO SCH (09:29)
[2021-10-25] MEDS: QUEtiapine FUMARATE 50 MG TABLET PO SCH ×3 (09:30→21:36)
[2021-10-25] MEDS: ASCORBIC ACID 500 MG/5 ML UNIT DOSE CUP PO SCH (09:30)
[2021-10-25] MEDS: MULTIVIT-MINERALS ORAL LIQUID PO SCH (09:30)
[2021-10-25] MEDS: POLYETHYLENE GLYCOL (HEALTHYLAX) 3350 17 GM PACKET PO SCH (09:31)
[2021-10-25] MEDS: prednisoLONE ACETATE 1% OPHTH SUSP 5 ML BOTTLE OS SCH (21:33)
[2021-10-25] MEDS: ATORVASTATIN CA 20 MG TABLET (FP) PO SCH (21:33)
[2021-10-25] MEDS: ASCORBIC ACID 500 MG TABLET (FP) PO SCH (21:33)
[2021-10-26] MEDS: INSULIN SLIDING SCALE (NOVOLOG) 1 VIAL SQ SCH ×4 (06:24→21:48)
[2021-10-26] MEDS: INSULIN (LEVEMIR) 100 UNITS/ML UNITS SQ SCH ×2 (06:25→21:48)
[2021-10-26] MEDS ORDERED: QUEtiapine FUMARATE 25 MG TABLET ONE ×2 (09:34→21:44)
[2021-10-26] MEDS: ZINC SULFATE 220 MG CAPSULE (FP) PO SCH ×2 (09:37→21:47)
[2021-10-26] MEDS: DOCUSATE SODIUM 100 MG CAPSULE (FP) PO SCH ×2 (09:37→21:48)
[2021-10-26] MEDS: POLYETHYLENE GLYCOL (HEALTHYLAX) 3350 17 GM PACKET PO SCH (09:37)
[2021-10-26] MEDS: ENOXAPARIN NA (PORCINE) 40 MG/0.4 ML DISP.SYRIN SQ SCH (09:37)
[2021-10-26] MEDS: QUEtiapine FUMARATE 50 MG TABLET PO SCH ×2 (09:38→21:48)
[2021-10-26] MEDS: ASCORBIC ACID 500 MG TABLET (FP) PO SCH ×2 (09:38→21:47)
[2021-10-26] MEDS: PANTOPRAZOLE 40 MG TABLET PO SCH (09:38)
[2021-10-26] MEDS: LABETALOL HCL 200 MG TABLET (FP) PO SCH ×2 (09:38→21:47)
[2021-10-26] MEDS: AMINO ACIDS/PROTEIN HYDROLYS 30 ML LIQUID.PKT PO SCH ×2 (09:39→17:43)
[2021-10-26] MEDS: MULTIVIT-MINERALS ORAL LIQUID PO SCH (09:39)
[2021-10-26 11:21] LABS: BLOOD UREA NITROGEN 13.4 mg/dL (7-18)
[2021-10-26 11:24] LABS: CREATININE 0.8 mg/dL (0.55-1.3)
[2021-10-26] MEDS: SILVER SULFADIAZINE 1% TOP CREAM 400 GM JAR TP SCH (11:30)
[2021-10-26] MEDS: ATORVASTATIN CA 20 MG TABLET (FP) PO SCH (21:48)
[2021-10-26] MEDS: prednisoLONE ACETATE 1% OPHTH SUSP 5 ML BOTTLE OS SCH (21:49)
[2021-10-27] MEDS: INSULIN SLIDING SCALE (NOVOLOG) 1 VIAL SQ SCH ×4 (06:51→21:02)
[2021-10-27] MEDS: INSULIN (LEVEMIR) 100 UNITS/ML UNITS SQ SCH ×2 (06:51→21:03)
[2021-10-27 08:09] LABS: CALCIUM 9.1 mg/dL (8.5-10.1)
[2021-10-27 08:10] LABS: BLOOD UREA NITROGEN 14.1 mg/dL (7-18)
[2021-10-27 08:13] LABS: CREATININE 0.9 mg/dL (0.55-1.3)
[2021-10-27] MEDS ORDERED: QUEtiapine FUMARATE 25 MG TABLET ONE ×2 (10:16→20:56)
[2021-10-27] MEDS: POLYETHYLENE GLYCOL (HEALTHYLAX) 3350 17 GM PACKET PO SCH (11:09)
[2021-10-27] MEDS: ENOXAPARIN NA (PORCINE) 40 MG/0.4 ML DISP.SYRIN SQ SCH (11:09)
[2021-10-27] MEDS: QUEtiapine FUMARATE 50 MG TABLET PO SCH ×2 (11:10→21:03)
[2021-10-27] MEDS: PANTOPRAZOLE 40 MG TABLET PO SCH (11:12)
[2021-10-27] MEDS: LABETALOL HCL 200 MG TABLET (FP) PO SCH ×2 (11:12→21:01)
[2021-10-27] MEDS: ZINC SULFATE 220 MG CAPSULE (FP) PO SCH ×2 (11:12→21:01)
[2021-10-27] MEDS: ASCORBIC ACID 500 MG TABLET (FP) PO SCH ×2 (11:12→21:01)
[2021-10-27] MEDS: AMINO ACIDS/PROTEIN HYDROLYS 30 ML LIQUID.PKT PO SCH ×2 (11:12→18:25)
[2021-10-27] MEDS: DOCUSATE SODIUM 100 MG CAPSULE (FP) PO SCH ×2 (11:13→21:03)
[2021-10-27] MEDS: SILVER SULFADIAZINE 1% TOP CREAM 400 GM JAR TP SCH (11:13)
[2021-10-27] MEDS: MULTIVIT-MINERALS ORAL LIQUID PO SCH (11:13)
[2021-10-27 15:31] LABS: EPI CELLS 11 /uL (0-25.1); HYALINE CASTS 1 /uL (0-3.1); URINE APPEARANCE CLEAR; URINE BACTERIA 21 /uL (0-1359); URINE BILIRUBIN NEGATIVE (NEGATIVE); URINE COLOR YELLOW; URINE GLUCOSE (UA) NEGATIVE (NEGATIVE); URINE KETONE NEGATIVE (NEGATIVE); URINE LEUK ESTERASE TRACE (NEGATIVE); URINE NITRITE NEGATIVE (NEGATIVE); URINE PROTEIN 1+ (NEGATIVE); URINE RBC 6 /uL (0-23.9); URINE UROBILINOGEN 0.2 mg/dL (0.2-1.0); URINE WBC 9 /uL (0-25.8)
[2021-10-27 16:17] LABS: YEAST PRESENT (NEGATIVE)
[2021-10-27] MEDS: ATORVASTATIN CA 20 MG TABLET (FP) PO SCH (21:01)
[2021-10-27] MEDS: prednisoLONE ACETATE 1% OPHTH SUSP 5 ML BOTTLE OS SCH (21:03)
[2021-10-28] MEDS: INSULIN (LEVEMIR) 100 UNITS/ML UNITS SQ SCH ×2 (06:31→21:40)
[2021-10-28] MEDS: INSULIN SLIDING SCALE (NOVOLOG) 1 VIAL SQ SCH ×4 (06:33→21:41)
[2021-10-28] MEDS ORDERED: QUEtiapine FUMARATE 25 MG TABLET ONE ×2 (08:57→21:04)
[2021-10-28] MEDS: PANTOPRAZOLE 40 MG TABLET PO SCH (09:03)
[2021-10-28] MEDS: ZINC SULFATE 220 MG CAPSULE (FP) PO SCH ×2 (09:03→21:39)
[2021-10-28] MEDS: DOCUSATE SODIUM 100 MG CAPSULE (FP) PO SCH ×2 (09:03→21:41)
[2021-10-28] MEDS: AMINO ACIDS/PROTEIN HYDROLYS 30 ML LIQUID.PKT PO SCH ×2 (09:03→17:28)
[2021-10-28] MEDS: LABETALOL HCL 200 MG TABLET (FP) PO SCH ×2 (09:03→21:39)
[2021-10-28] MEDS: ENOXAPARIN NA (PORCINE) 40 MG/0.4 ML DISP.SYRIN SQ SCH (09:03)
[2021-10-28] MEDS: ASCORBIC ACID 500 MG TABLET (FP) PO SCH ×2 (09:03→21:42)
[2021-10-28] MEDS: QUEtiapine FUMARATE 50 MG TABLET PO SCH ×2 (09:04→21:42)
[2021-10-28] MEDS: MULTIVIT-MINERALS ORAL LIQUID PO SCH (09:05)
[2021-10-28] MEDS: SILVER SULFADIAZINE 1% TOP CREAM 400 GM JAR TP SCH (09:05)
[2021-10-28] MEDS: POLYETHYLENE GLYCOL (HEALTHYLAX) 3350 17 GM PACKET PO SCH (09:08)
[2021-10-28 09:55] LABS: BASO % 0.4 % (0-2.0); EOS % 9.2 % (0-4.5); HEMOGLOBIN 9.5 GM/dL (11.7-16.9); LYMPH % 26.6 % (8-40); MCH 27.7 pg (25.7-33.7); MCHC 31.6 g/dl (32.0-35.9); MEAN CELL VOLUME 87.6 fl (80-96); MEAN PLT VOLUME 7.3 fl (7.5-11.1); MONO % 10.6 % (3.8-10.2); NEUT % 53.2 % (42.8-82.8); PLATELET COUNT 595 10^3/uL (134-434); RBC 3.42 M/mm3 (4.00-5.60); RDW 17.7 % (11.9-15.9); WHITE BLOOD COUNT 12.6 K/mm3 (4.0-10.0)
[2021-10-28 10:20] LABS: CALCIUM 8.9 mg/dL (8.5-10.1)
[2021-10-28 10:21] LABS: BLOOD UREA NITROGEN 11.3 mg/dL (7-18)
[2021-10-28] MEDS: ATORVASTATIN CA 20 MG TABLET (FP) PO SCH (21:41)
[2021-10-28] MEDS: prednisoLONE ACETATE 1% OPHTH SUSP 5 ML BOTTLE OS SCH (21:42)
[2021-10-29] MEDS: INSULIN SLIDING SCALE (NOVOLOG) 1 VIAL SQ SCH ×4 (06:50→21:03)
[2021-10-29] MEDS: INSULIN (LEVEMIR) 100 UNITS/ML UNITS SQ SCH ×2 (06:50→21:03)
[2021-10-29] MEDS: AMINO ACIDS/PROTEIN HYDROLYS 30 ML LIQUID.PKT PO SCH ×2 (08:02→17:18)
[2021-10-29 08:14] LABS: BASO % 0.5 % (0-2.0); EOS % 5.8 % (0-4.5); LYMPH % 20.3 % (8-40); MCH 28.1 pg (25.7-33.7); MCHC 32.2 g/dl (32.0-35.9); MEAN CELL VOLUME 87.4 fl (80-96); MEAN PLT VOLUME 7.3 fl (7.5-11.1); MONO % 10.4 % (3.8-10.2); PLATELET COUNT 547 10^3/uL (134-434); RBC 3.21 M/mm3 (4.00-5.60); RDW 17.7 % (11.9-15.9); WHITE BLOOD COUNT 14.3 K/mm3 (4.0-10.0)
[2021-10-29 08:27] LABS: CALCIUM 8.3 mg/dL (8.5-10.1)
[2021-10-29 08:28] LABS: MAGNESIUM 1.7 mg/dL (1.8-2.4)
[2021-10-29 08:31] LABS: CREATININE 0.9 mg/dL (0.55-1.3); PHOSPHOROUS 3.2 mg/dL (2.5-4.9)
[2021-10-29] MEDS: SILVER SULFADIAZINE 1% TOP CREAM 400 GM JAR TP SCH (10:00)
[2021-10-29] MEDS: ZINC SULFATE 220 MG CAPSULE (FP) PO SCH ×2 (10:03→21:04)
[2021-10-29] MEDS ORDERED: QUEtiapine FUMARATE 25 MG TABLET ONE ×2 (10:36→20:33)
[2021-10-29] MEDS: DOCUSATE SODIUM 100 MG CAPSULE (FP) PO SCH ×2 (11:02→21:03)
[2021-10-29] MEDS: ENOXAPARIN NA (PORCINE) 40 MG/0.4 ML DISP.SYRIN SQ SCH (11:03)
[2021-10-29] MEDS: LABETALOL HCL 200 MG TABLET (FP) PO SCH ×2 (11:03→21:03)
[2021-10-29] MEDS: PANTOPRAZOLE 40 MG TABLET PO SCH (11:03)
[2021-10-29] MEDS: POLYETHYLENE GLYCOL (HEALTHYLAX) 3350 17 GM PACKET PO SCH (11:03)
[2021-10-29] MEDS: QUEtiapine FUMARATE 50 MG TABLET PO SCH ×2 (11:04→21:04)
[2021-10-29] MEDS: ASCORBIC ACID 500 MG TABLET (FP) PO SCH ×2 (11:05→21:04)
[2021-10-29] MEDS: MULTIVIT-MINERALS ORAL LIQUID PO SCH (12:28)
[2021-10-29] MEDS ORDERED: MAGNESIUM SULF 50% (8.12 MEQ/2 ML-1 GM VIAL) IVPB ONE (14:42)
[2021-10-29] MEDS ORDERED: MAGNESIUM OXIDE 400 MG TABLET (FP) PO ONE (14:43)
[2021-10-29] MEDS: ATORVASTATIN CA 20 MG TABLET (FP) PO SCH (21:03)
[2021-10-29] MEDS: prednisoLONE ACETATE 1% OPHTH SUSP 5 ML BOTTLE OS SCH (21:04)
[2021-10-29] MEDS ORDERED: ONDANSETRON 4 MG/2 ML VIAL IVPUSH ONE (22:00)
[2021-10-30] MEDS: INSULIN (LEVEMIR) 100 UNITS/ML UNITS SQ SCH ×2 (06:01→20:38)
[2021-10-30] MEDS: INSULIN SLIDING SCALE (NOVOLOG) 1 VIAL SQ SCH ×4 (06:01→21:00)
[2021-10-30] MEDS ORDERED: QUEtiapine FUMARATE 25 MG TABLET ONE ×2 (08:01→20:31)
[2021-10-30 08:12] LABS: BASO % 0.6 % (0-2.0); EOS % 8.4 % (0-4.5); HEMATOCRIT 30.6 % (35.4-49); HEMOGLOBIN 9.6 GM/dL (11.7-16.9); MCH 27.5 pg (25.7-33.7); MCHC 31.4 g/dl (32.0-35.9); MEAN CELL VOLUME 87.4 fl (80-96); MEAN PLT VOLUME 7.3 fl (7.5-11.1); MONO % 9.7 % (3.8-10.2); NEUT % 53.3 % (42.8-82.8); PLATELET COUNT 575 10^3/uL (134-434); RDW 18.1 % (11.9-15.9); WHITE BLOOD COUNT 11.4 K/mm3 (4.0-10.0)
[2021-10-30 08:32] LABS: CALCIUM 9.4 mg/dL (8.5-10.1)
[2021-10-30 08:33] LABS: BLOOD UREA NITROGEN 11.1 mg/dL (7-18)
[2021-10-30 08:36] LABS: CREATININE 0.9 mg/dL (0.55-1.3); PHOSPHOROUS 3.8 mg/dL (2.5-4.9)
[2021-10-30] MEDS: AMINO ACIDS/PROTEIN HYDROLYS 30 ML LIQUID.PKT PO SCH ×2 (08:56→18:00)
[2021-10-30] MEDS: MULTIVIT-MINERALS ORAL LIQUID PO SCH (09:01)
[2021-10-30] MEDS: DOCUSATE SODIUM 100 MG CAPSULE (FP) PO SCH ×2 (09:01→20:59)
[2021-10-30] MEDS: ENOXAPARIN NA (PORCINE) 40 MG/0.4 ML DISP.SYRIN SQ SCH (09:01)
[2021-10-30] MEDS: POLYETHYLENE GLYCOL (HEALTHYLAX) 3350 17 GM PACKET PO SCH (09:01)
[2021-10-30] MEDS: ASCORBIC ACID 500 MG TABLET (FP) PO SCH ×2 (09:02→20:59)
[2021-10-30] MEDS: SILVER SULFADIAZINE 1% TOP CREAM 400 GM JAR TP SCH (09:02)
[2021-10-30] MEDS: QUEtiapine FUMARATE 50 MG TABLET PO SCH ×2 (09:02→21:01)
[2021-10-30] MEDS: LABETALOL HCL 200 MG TABLET (FP) PO SCH ×2 (09:03→21:00)
[2021-10-30] MEDS: ZINC SULFATE 220 MG CAPSULE (FP) PO SCH ×2 (09:03→21:01)
[2021-10-30] MEDS: PANTOPRAZOLE 40 MG TABLET PO SCH (09:03)
[2021-10-30] MEDS: guaiFENesin 600 MG TABLET.ER (FP) PO SCH ×2 (11:25→21:00)
[2021-10-30] MEDS: PSYLLIUM 5.85 GM PACKET PO SCH (18:21)
[2021-10-30] MEDS: FLUTICASONE PROP 0.05% 16 GM NASAL SPRAY NS SCH ×2 (18:21→21:00)
[2021-10-30] MEDS: ATORVASTATIN CA 20 MG TABLET (FP) PO SCH (20:59)
[2021-10-30] MEDS: prednisoLONE ACETATE 1% OPHTH SUSP 5 ML BOTTLE OS SCH (21:00)
[2021-10-30 22:48] LABS: ARTERIAL BLOOD GAS BASE EXCESS -0.1 mmol/L (-2-2); ARTERIAL BLOOD GAS PO2 148.9 mmHg (80-100); ARTERIAL BLOOD GAS pH 7.419 (7.350-7.450)
[2021-10-30 22:49] LABS: ALLENS TEST POSITIVE
[2021-10-30 23:30] LABS: BASO % 1.2 % (0-2.0); EOS % 7.2 % (0-4.5); HEMATOCRIT 27.9 % (35.4-49); HEMOGLOBIN 9.2 GM/dL (11.7-16.9); LYMPH % 21.5 % (8-40); MCH 28.6 pg (25.7-33.7); MEAN CELL VOLUME 86.5 fl (80-96); MEAN PLT VOLUME 7.4 fl (7.5-11.1); MONO % 8.6 % (3.8-10.2); NEUT % 61.5 % (42.8-82.8); PLATELET COUNT 576 10^3/uL (134-434); RBC 3.23 M/mm3 (4.00-5.60); RDW 17.9 % (11.9-15.9); WHITE BLOOD COUNT 14.2 K/mm3 (4.0-10.0)
[2021-10-30 23:49] LABS: CALCIUM 8.9 mg/dL (8.5-10.1)
[2021-10-30 23:50] LABS: ALBUMIN 2.6 g/dl (3.4-5.0); BLOOD UREA NITROGEN 15.7 mg/dL (7-18)
[2021-10-30 23:54] LABS: TOT PROT 7.5 g/dl (6.4-8.2)
[2021-10-30 23:55] LABS: BILIRUBIN,TOTAL 0.4 mg/dL (0.2-1)
[2021-10-31 00:18] LABS: LACTIC ACID 2.6 mmol/L (0.4-2.0)
[2021-10-31] MEDS ORDERED: PIPERACILLIN/TAZOB 3.375 GM 3.375 GM in DEXTROSE 5%-WATER - 50 ML IVPB SCH ×2 (06:15→12:15)
[2021-10-31] MEDS ORDERED: SODIUM CHLORIDE 1,000 ML IV SCH (06:15)
[2021-10-31] MEDS: INSULIN (LEVEMIR) 100 UNITS/ML UNITS SQ SCH ×2 (06:43→21:09)
[2021-10-31] MEDS: INSULIN SLIDING SCALE (NOVOLOG) 1 VIAL SQ SCH ×4 (06:46→21:09)
[2021-10-31] MEDS ORDERED: PIPERACILLIN/TAZOBACTAM 4.5 GM VIAL IVPB ONE ×3 (06:52→20:33)
[2021-10-31] MEDS ORDERED: DEXTROSE 5%-WATER 100 ML IVPB ONE ×3 (06:52→20:33)
[2021-10-31] MEDS: PIPERACILLIN/TAZOB 4.5 GM 4.5 GM in DEXTROSE 5%-WATER 100 ML IVPB SCH ×3 (06:55→21:08)
[2021-10-31 07:52] LABS: BASO % 0.6 % (0-2.0); EOS % 6.9 % (0-4.5); HEMATOCRIT 29.3 % (35.4-49); HEMOGLOBIN 9.3 GM/dL (11.7-16.9); LYMPH % 29.3 % (8-40); MCH 27.6 pg (25.7-33.7); MCHC 31.9 g/dl (32.0-35.9); MEAN CELL VOLUME 86.7 fl (80-96); MEAN PLT VOLUME 7.2 fl (7.5-11.1); MONO % 8.6 % (3.8-10.2); NEUT % 54.6 % (42.8-82.8); PLATELET COUNT 533 10^3/uL (134-434); RBC 3.38 M/mm3 (4.00-5.60); RDW 17.6 % (11.9-15.9); WHITE BLOOD COUNT 12.1 K/mm3 (4.0-10.0)
[2021-10-31 08:13] LABS: CALCIUM 8.9 mg/dL (8.5-10.1)
[2021-10-31 08:14] LABS: BLOOD UREA NITROGEN 13.1 mg/dL (7-18); MAGNESIUM 1.8 mg/dL (1.8-2.4)
[2021-10-31 08:17] LABS: CREATININE 0.9 mg/dL (0.55-1.3)
[2021-10-31] MEDS ORDERED: QUEtiapine FUMARATE 25 MG TABLET ONE ×2 (09:49→20:57)
[2021-10-31] MEDS: guaiFENesin/D-M SUGAR-FREE/ACLHOL-FREE 5 ML UNIT DOSE PO PRN (10:00)
[2021-10-31] MEDS: ENOXAPARIN NA (PORCINE) 40 MG/0.4 ML DISP.SYRIN SQ SCH (10:01)
[2021-10-31] MEDS: AMINO ACIDS/PROTEIN HYDROLYS 30 ML LIQUID.PKT PO SCH ×2 (10:01→17:42)
[2021-10-31] MEDS: POLYETHYLENE GLYCOL (HEALTHYLAX) 3350 17 GM PACKET PO SCH (10:02)
[2021-10-31] MEDS: MULTIVIT-MINERALS ORAL LIQUID PO SCH (10:02)
[2021-10-31] MEDS: guaiFENesin 600 MG TABLET.ER (FP) PO SCH ×2 (10:03→21:08)
[2021-10-31] MEDS: DOCUSATE SODIUM 100 MG CAPSULE (FP) PO SCH ×2 (10:03→21:08)
[2021-10-31] MEDS: PANTOPRAZOLE 40 MG TABLET PO SCH (10:03)
[2021-10-31] MEDS: ZINC SULFATE 220 MG CAPSULE (FP) PO SCH ×2 (10:03→21:08)
[2021-10-31] MEDS: ASCORBIC ACID 500 MG TABLET (FP) PO SCH ×2 (10:03→21:09)
[2021-10-31] MEDS: LABETALOL HCL 200 MG TABLET (FP) PO SCH ×2 (10:04→21:08)
[2021-10-31] MEDS: FLUTICASONE PROP 0.05% 16 GM NASAL SPRAY NS SCH ×2 (10:04→22:17)
[2021-10-31] MEDS: PSYLLIUM 5.85 GM PACKET PO SCH (10:04)
[2021-10-31] MEDS: QUEtiapine FUMARATE 50 MG TABLET PO SCH ×2 (10:05→21:09)
[2021-10-31] MEDS: SILVER SULFADIAZINE 1% TOP CREAM 400 GM JAR TP SCH (10:05)
[2021-10-31] MEDS: VANCOMYCIN 1 GRAM (PRE-DOCKED) 1,000 MG/250 ML BAG IVPB SCH ×2 (10:13→22:19)
[2021-10-31] MEDS ORDERED: VANCOMYCIN 1 GM in D5W (PRE-DOCKED) 1,000 MG/250 ML IVPB ONE (12:04)
[2021-10-31] MEDS: ATORVASTATIN CA 20 MG TABLET (FP) PO SCH (21:08)
[2021-10-31] MEDS: prednisoLONE ACETATE 1% OPHTH SUSP 5 ML BOTTLE OS SCH (21:10)
[2021-11-01] MEDS ORDERED: DEXTROSE 5%-WATER 100 ML IVPB ONE (02:40)
[2021-11-01] MEDS ORDERED: PIPERACILLIN/TAZOBACTAM 4.5 GM VIAL IVPB ONE (02:40)
[2021-11-01] MEDS: PIPERACILLIN/TAZOB 4.5 GM 4.5 GM in DEXTROSE 5%-WATER 100 ML IVPB SCH (03:23)
[2021-11-01] MEDS: INSULIN (LEVEMIR) 100 UNITS/ML UNITS SQ SCH ×2 (06:19→21:12)
[2021-11-01] MEDS: INSULIN SLIDING SCALE (NOVOLOG) 1 VIAL SQ SCH ×4 (06:19→21:13)
[2021-11-01 09:10] LABS: BASO % 0.6 % (0-2.0); EOS % 9.4 % (0-4.5); HEMATOCRIT 30.7 % (35.4-49); HEMOGLOBIN 9.8 GM/dL (11.7-16.9); LYMPH % 20.3 % (8-40); MCH 27.7 pg (25.7-33.7); MCHC 31.8 g/dl (32.0-35.9); MEAN CELL VOLUME 87.2 fl (80-96); MEAN PLT VOLUME 7.5 fl (7.5-11.1); MONO % 9.5 % (3.8-10.2); NEUT % 60.2 % (42.8-82.8); PLATELET COUNT 529 10^3/uL (134-434); RBC 3.52 M/mm3 (4.00-5.60); RDW 18.1 % (11.9-15.9); WHITE BLOOD COUNT 13.3 K/mm3 (4.0-10.0)
[2021-11-01 10:08] LABS: CALCIUM 9.2 mg/dL (8.5-10.1)
[2021-11-01 10:09] LABS: BLOOD UREA NITROGEN 14.2 mg/dL (7-18); MAGNESIUM 1.9 mg/dL (1.8-2.4)
[2021-11-01 10:12] LABS: CREATININE 1.1 mg/dL (0.55-1.3); PHOSPHOROUS 4.1 mg/dL (2.5-4.9)
[2021-11-01] MEDS ORDERED: QUEtiapine FUMARATE 25 MG TABLET ONE ×2 (10:14→20:55)
[2021-11-01] MEDS ORDERED: DEXTROSE 5%-WATER - 50 ML IVPB ONE ×2 (10:16→17:26)
[2021-11-01] MEDS ORDERED: PIPERACILLIN/TAZOBACTAM 3.375 GM VIAL IVPB ONE ×2 (10:16→17:26)
[2021-11-01] MEDS: AMINO ACIDS/PROTEIN HYDROLYS 30 ML LIQUID.PKT PO SCH ×2 (10:31→17:13)
[2021-11-01] MEDS: ASCORBIC ACID 500 MG TABLET (FP) PO SCH ×2 (10:32→21:13)
[2021-11-01] MEDS: ENOXAPARIN NA (PORCINE) 40 MG/0.4 ML DISP.SYRIN SQ SCH (10:32)
[2021-11-01] MEDS: POLYETHYLENE GLYCOL (HEALTHYLAX) 3350 17 GM PACKET PO SCH (10:33)
[2021-11-01] MEDS: QUEtiapine FUMARATE 50 MG TABLET PO SCH ×2 (10:33→21:13)
[2021-11-01] MEDS: LABETALOL HCL 200 MG TABLET (FP) PO SCH ×2 (10:33→21:13)
[2021-11-01] MEDS: ZINC SULFATE 220 MG CAPSULE (FP) PO SCH ×2 (10:33→21:30)
[2021-11-01] MEDS: PANTOPRAZOLE 40 MG TABLET PO SCH (10:33)
[2021-11-01] MEDS: guaiFENesin 600 MG TABLET.ER (FP) PO SCH ×2 (10:33→21:14)
[2021-11-01] MEDS: DOCUSATE SODIUM 100 MG CAPSULE (FP) PO SCH ×2 (10:33→21:12)
[2021-11-01] MEDS: PSYLLIUM 5.85 GM PACKET PO SCH (10:33)
[2021-11-01] MEDS: PIPERACILLIN/TAZOB 3.375 GM 3.375 GM in DEXTROSE 5%-WATER - 50 ML IVPB SCH ×2 (10:34→17:33)
[2021-11-01] MEDS: SILVER SULFADIAZINE 1% TOP CREAM 400 GM JAR TP SCH (10:34)
[2021-11-01] MEDS: guaiFENesin/D-M SUGAR-FREE/ACLHOL-FREE 5 ML UNIT DOSE PO PRN ×2 (10:35→20:06)
[2021-11-01] MEDS: FLUTICASONE PROP 0.05% 16 GM NASAL SPRAY NS SCH ×2 (10:38→21:14)
[2021-11-01] MEDS: MULTIVIT-MINERALS ORAL LIQUID PO SCH (10:41)
[2021-11-01] MEDS: prednisoLONE ACETATE 1% OPHTH SUSP 5 ML BOTTLE OS SCH (21:13)
[2021-11-01] MEDS: ATORVASTATIN CA 20 MG TABLET (FP) PO SCH (21:13)
[2021-11-01] MEDS ORDERED: VANCOMYCIN 1 GRAM (PRE-DOCKED) 1,000 MG/250 ML BAG IVPB ONE (22:00)
[2021-11-02] MEDS ORDERED: PIPERACILLIN/TAZOBACTAM 3.375 GM VIAL IVPB ONE ×3 (01:41→18:17)
[2021-11-02] MEDS ORDERED: DEXTROSE 5%-WATER - 50 ML IVPB ONE ×3 (01:41→18:17)
[2021-11-02] MEDS: PIPERACILLIN/TAZOB 3.375 GM 3.375 GM in DEXTROSE 5%-WATER - 50 ML IVPB SCH ×3 (01:54→18:21)
[2021-11-02] MEDS: INSULIN (LEVEMIR) 100 UNITS/ML UNITS SQ SCH ×2 (06:37→21:33)
[2021-11-02] MEDS: INSULIN SLIDING SCALE (NOVOLOG) 1 VIAL SQ SCH ×4 (06:38→21:33)
[2021-11-02] MEDS ORDERED: QUEtiapine FUMARATE 25 MG TABLET ONE ×2 (11:18→21:15)
[2021-11-02] MEDS: PSYLLIUM 5.85 GM PACKET PO SCH (11:28)
[2021-11-02] MEDS: AMINO ACIDS/PROTEIN HYDROLYS 30 ML LIQUID.PKT PO SCH ×2 (11:28→16:33)
[2021-11-02] MEDS: ZINC SULFATE 220 MG CAPSULE (FP) PO SCH ×2 (11:28→21:32)
[2021-11-02] MEDS: ASCORBIC ACID 500 MG TABLET (FP) PO SCH ×2 (11:28→21:32)
[2021-11-02] MEDS: ENOXAPARIN NA (PORCINE) 40 MG/0.4 ML DISP.SYRIN SQ SCH (11:28)
[2021-11-02] MEDS: MULTIVIT-MINERALS ORAL LIQUID PO SCH (11:28)
[2021-11-02] MEDS: POLYETHYLENE GLYCOL (HEALTHYLAX) 3350 17 GM PACKET PO SCH ×2 (11:28→21:49)
[2021-11-02] MEDS: PANTOPRAZOLE 40 MG TABLET PO SCH (11:29)
[2021-11-02] MEDS: QUEtiapine FUMARATE 50 MG TABLET PO SCH ×2 (11:29→21:34)
[2021-11-02] MEDS: guaiFENesin 600 MG TABLET.ER (FP) PO SCH ×2 (11:29→21:32)
[2021-11-02] MEDS: LABETALOL HCL 200 MG TABLET (FP) PO SCH ×2 (11:29→21:32)
[2021-11-02] MEDS: DOCUSATE SODIUM 100 MG CAPSULE (FP) PO SCH ×2 (11:29→21:32)
[2021-11-02] MEDS: FLUTICASONE PROP 0.05% 16 GM NASAL SPRAY NS SCH ×3 (11:30→21:44)
[2021-11-02] MEDS: SILVER SULFADIAZINE 1% TOP CREAM 400 GM JAR TP SCH (11:31)
[2021-11-02] MEDS: VANCOMYCIN 1 GM in D5W (PRE-DOCKED) 1,000 MG/250 ML IVPB SCH ×2 (14:42→23:10)
[2021-11-02] MEDS: PIPERACILLIN/TAZOB 4.5 GM 4.5 GM in DEXTROSE 5%-WATER 100 ML IVPB SCH ×2 (18:50→18:51)
[2021-11-02] MEDS: ATORVASTATIN CA 20 MG TABLET (FP) PO SCH (21:32)
[2021-11-02] MEDS: prednisoLONE ACETATE 1% OPHTH SUSP 5 ML BOTTLE OS SCH (21:34)
[2021-11-02] MEDS: ONDANSETRON *ODT* 4 MG TABLET SL PRN (21:53)
[2021-11-03] MEDS ORDERED: DEXTROSE 5%-WATER - 50 ML IVPB ONE ×3 (01:01→17:00)
[2021-11-03] MEDS ORDERED: PIPERACILLIN/TAZOBACTAM 3.375 GM VIAL IVPB ONE ×3 (01:01→17:00)
[2021-11-03] MEDS: PIPERACILLIN/TAZOB 3.375 GM 3.375 GM in DEXTROSE 5%-WATER - 50 ML IVPB SCH ×3 (01:14→17:05)
[2021-11-03] MEDS: INSULIN SLIDING SCALE (NOVOLOG) 1 VIAL SQ SCH ×4 (06:28→21:19)
[2021-11-03] MEDS: INSULIN (LEVEMIR) 100 UNITS/ML UNITS SQ SCH ×2 (06:39→21:09)
[2021-11-03] MEDS ORDERED: QUEtiapine FUMARATE 25 MG TABLET ONE ×2 (08:54→20:51)
[2021-11-03] MEDS: AMINO ACIDS/PROTEIN HYDROLYS 30 ML LIQUID.PKT PO SCH ×2 (09:31→17:03)
[2021-11-03] MEDS: POLYETHYLENE GLYCOL (HEALTHYLAX) 3350 17 GM PACKET PO SCH ×2 (09:32→21:09)
[2021-11-03] MEDS: PANTOPRAZOLE 40 MG TABLET PO SCH (09:32)
[2021-11-03] MEDS: guaiFENesin 600 MG TABLET.ER (FP) PO SCH ×2 (09:32→21:09)
[2021-11-03] MEDS: DOCUSATE SODIUM 100 MG CAPSULE (FP) PO SCH ×2 (09:32→21:08)
[2021-11-03] MEDS: ZINC SULFATE 220 MG CAPSULE (FP) PO SCH ×2 (09:32→21:08)
[2021-11-03] MEDS: ENOXAPARIN NA (PORCINE) 40 MG/0.4 ML DISP.SYRIN SQ SCH (09:32)
[2021-11-03] MEDS: ASCORBIC ACID 500 MG TABLET (FP) PO SCH ×2 (09:33→21:08)
[2021-11-03] MEDS: PSYLLIUM 5.85 GM PACKET PO SCH (09:33)
[2021-11-03] MEDS: LABETALOL HCL 200 MG TABLET (FP) PO SCH ×2 (09:33→21:08)
[2021-11-03] MEDS: MULTIVIT-MINERALS ORAL LIQUID PO SCH (09:34)
[2021-11-03] MEDS: QUEtiapine FUMARATE 50 MG TABLET PO SCH ×2 (09:34→21:09)
[2021-11-03] MEDS: FLUTICASONE PROP 0.05% 16 GM NASAL SPRAY NS SCH ×2 (09:37→21:19)
[2021-11-03] MEDS: VANCOMYCIN 1 GM in D5W (PRE-DOCKED) 1,000 MG/250 ML IVPB SCH (12:12)
[2021-11-03] MEDS: SILVER SULFADIAZINE 1% TOP CREAM 400 GM JAR TP SCH (14:21)
[2021-11-03] MEDS: guaiFENesin/D-M SUGAR-FREE/ACLHOL-FREE 5 ML UNIT DOSE PO PRN (17:07)
[2021-11-03] MEDS ORDERED: MINERAL OIL ENEMA 133 ML ENEMA PR ONE (20:02)
[2021-11-03] MEDS ORDERED: MAGNESIUM CITRATE 300 ML BOTTLE PO ONE (20:07)
[2021-11-03] MEDS: ATORVASTATIN CA 20 MG TABLET (FP) PO SCH (21:08)
[2021-11-03] MEDS: ONDANSETRON *ODT* 4 MG TABLET SL PRN (21:08)
[2021-11-03] MEDS: prednisoLONE ACETATE 1% OPHTH SUSP 5 ML BOTTLE OS SCH (21:09)
[2021-11-04] MEDS: INSULIN (LEVEMIR) 100 UNITS/ML UNITS SQ SCH ×2 (06:21→21:37)
[2021-11-04] MEDS: INSULIN SLIDING SCALE (NOVOLOG) 1 VIAL SQ SCH ×4 (06:22→21:37)
[2021-11-04] MEDS ORDERED: BISACODYL 10 MG SUPP.RECT PR ONE (06:55)
[2021-11-04 07:43] LABS: HEMATOCRIT 27.7 % (35.4-49); HEMOGLOBIN 9.2 GM/dL (11.7-16.9); MCH 28.7 pg (25.7-33.7); MCHC 33.1 g/dl (32.0-35.9); MEAN CELL VOLUME 86.6 fl (80-96); PLATELET COUNT 464 10^3/uL (134-434); RDW 18.4 % (11.9-15.9); WHITE BLOOD COUNT 10.4 K/mm3 (4.0-10.0)
[2021-11-04 08:00] LABS: ALBUMIN 2.5 g/dl (3.4-5.0); BLOOD UREA NITROGEN 12.7 mg/dL (7-18); CALCIUM 8.9 mg/dL (8.5-10.1)
[2021-11-04 08:05] LABS: BILIRUBIN,TOTAL 0.4 mg/dL (0.2-1); TOT PROT 7.1 g/dl (6.4-8.2)
[2021-11-04] MEDS: AMINO ACIDS/PROTEIN HYDROLYS 30 ML LIQUID.PKT PO SCH ×2 (08:30→17:12)
[2021-11-04] MEDS ORDERED: QUEtiapine FUMARATE 25 MG TABLET ONE ×2 (09:35→21:29)
[2021-11-04] MEDS: PANTOPRAZOLE 40 MG TABLET PO SCH (09:49)
[2021-11-04] MEDS: MULTIVIT-MINERALS ORAL LIQUID PO SCH (09:49)
[2021-11-04] MEDS: guaiFENesin 600 MG TABLET.ER (FP) PO SCH ×2 (09:49→21:36)
[2021-11-04] MEDS: QUEtiapine FUMARATE 50 MG TABLET PO SCH ×2 (09:49→21:38)
[2021-11-04] MEDS: DOCUSATE SODIUM 100 MG CAPSULE (FP) PO SCH ×2 (09:49→21:35)
[2021-11-04] MEDS: LABETALOL HCL 200 MG TABLET (FP) PO SCH ×2 (09:49→21:35)
[2021-11-04] MEDS: ZINC SULFATE 220 MG CAPSULE (FP) PO SCH ×2 (09:49→21:35)
[2021-11-04] MEDS: ONDANSETRON *ODT* 4 MG TABLET SL PRN ×2 (09:49→21:42)
[2021-11-04] MEDS: FLUTICASONE PROP 0.05% 16 GM NASAL SPRAY NS SCH ×2 (09:49→21:38)
[2021-11-04] MEDS: ASCORBIC ACID 500 MG TABLET (FP) PO SCH ×2 (09:49→21:35)
[2021-11-04] MEDS: POLYETHYLENE GLYCOL (HEALTHYLAX) 3350 17 GM PACKET PO SCH ×2 (09:49→21:35)
[2021-11-04] MEDS: SILVER SULFADIAZINE 1% TOP CREAM 400 GM JAR TP SCH (09:50)
[2021-11-04] MEDS: ENOXAPARIN NA (PORCINE) 40 MG/0.4 ML DISP.SYRIN SQ SCH (09:50)
[2021-11-04] MEDS: PSYLLIUM 5.85 GM PACKET PO SCH (09:50)
[2021-11-04] MEDS: ATORVASTATIN CA 20 MG TABLET (FP) PO SCH (21:35)
[2021-11-04] MEDS: prednisoLONE ACETATE 1% OPHTH SUSP 5 ML BOTTLE OS SCH (21:38)
[2021-11-05] MEDS: INSULIN SLIDING SCALE (NOVOLOG) 1 VIAL SQ SCH ×4 (06:46→21:01)
[2021-11-05] MEDS: INSULIN (LEVEMIR) 100 UNITS/ML UNITS SQ SCH ×2 (06:46→20:56)
[2021-11-05 07:35] LABS: BASO % 0.4 % (0-2.0); EOS % 10.7 % (0-4.5); HEMATOCRIT 28.9 % (35.4-49); HEMOGLOBIN 9.2 GM/dL (11.7-16.9); LYMPH % 29.4 % (8-40); MCH 28.1 pg (25.7-33.7); MEAN CELL VOLUME 87.8 fl (80-96); MEAN PLT VOLUME 7.1 fl (7.5-11.1); MONO % 9.7 % (3.8-10.2); NEUT % 49.8 % (42.8-82.8); PLATELET COUNT 467 10^3/uL (134-434); RBC 3.29 M/mm3 (4.00-5.60); RDW 18.2 % (11.9-15.9); WHITE BLOOD COUNT 9.6 K/mm3 (4.0-10.0)
[2021-11-05 08:00] LABS: CALCIUM 9.1 mg/dL (8.5-10.1)
[2021-11-05 08:01] LABS: BLOOD UREA NITROGEN 14.3 mg/dL (7-18)
[2021-11-05] MEDS: AMINO ACIDS/PROTEIN HYDROLYS 30 ML LIQUID.PKT PO SCH ×2 (08:02→17:14)
[2021-11-05 08:04] LABS: PHOSPHOROUS 3.2 mg/dL (2.5-4.9)
[2021-11-05] MEDS: FLUTICASONE PROP 0.05% 16 GM NASAL SPRAY NS SCH ×2 (10:50→21:00)
[2021-11-05] MEDS: PSYLLIUM 5.85 GM PACKET PO SCH (10:50)
[2021-11-05] MEDS ORDERED: QUEtiapine FUMARATE 25 MG TABLET ONE ×2 (10:50→20:47)
[2021-11-05] MEDS: ASCORBIC ACID 500 MG TABLET (FP) PO SCH ×2 (10:54→21:06)
[2021-11-05] MEDS: POLYETHYLENE GLYCOL (HEALTHYLAX) 3350 17 GM PACKET PO SCH ×2 (10:55→21:02)
[2021-11-05] MEDS: MULTIVIT-MINERALS ORAL LIQUID PO SCH (10:55)
[2021-11-05] MEDS: QUEtiapine FUMARATE 50 MG TABLET PO SCH ×2 (10:56→21:06)
[2021-11-05] MEDS: DOCUSATE SODIUM 100 MG CAPSULE (FP) PO SCH ×2 (11:00→21:01)
[2021-11-05] MEDS: guaiFENesin 600 MG TABLET.ER (FP) PO SCH ×2 (11:00→21:06)
[2021-11-05] MEDS: ENOXAPARIN NA (PORCINE) 40 MG/0.4 ML DISP.SYRIN SQ SCH (11:00)
[2021-11-05] MEDS: ZINC SULFATE 220 MG CAPSULE (FP) PO SCH ×2 (11:00→21:01)
[2021-11-05] MEDS: LABETALOL HCL 200 MG TABLET (FP) PO SCH ×2 (11:00→21:01)
[2021-11-05] MEDS: PANTOPRAZOLE 40 MG TABLET PO SCH (11:11)
[2021-11-05] MEDS: ONDANSETRON *ODT* 4 MG TABLET SL PRN ×2 (11:11→20:59)
[2021-11-05] MEDS: SILVER SULFADIAZINE 1% TOP CREAM 400 GM JAR TP SCH (11:15)
[2021-11-05] MEDS: LISINOPRIL 5 MG TABLET PO SCH (13:51)
[2021-11-05] MEDS: ATORVASTATIN CA 20 MG TABLET (FP) PO SCH (21:02)
[2021-11-05] MEDS: prednisoLONE ACETATE 1% OPHTH SUSP 5 ML BOTTLE OS SCH (21:06)
[2021-11-06] MEDS: INSULIN (LEVEMIR) 100 UNITS/ML UNITS SQ SCH (06:44)
[2021-11-06] MEDS: INSULIN SLIDING SCALE (NOVOLOG) 1 VIAL SQ SCH ×2 (06:45→10:27)
[2021-11-06] MEDS: AMINO ACIDS/PROTEIN HYDROLYS 30 ML LIQUID.PKT PO SCH (07:59)
[2021-11-06 09:10] LABS: BASO % 0.5 % (0-2.0); HEMATOCRIT 30.9 % (35.4-49); HEMOGLOBIN 9.8 GM/dL (11.7-16.9); LYMPH % 26.3 % (8-40); MCHC 31.8 g/dl (32.0-35.9); MEAN CELL VOLUME 88.2 fl (80-96); MEAN PLT VOLUME 7.4 fl (7.5-11.1); MONO % 9.2 % (3.8-10.2); PLATELET COUNT 473 10^3/uL (134-434); RDW 18.7 % (11.9-15.9); WHITE BLOOD COUNT 10.2 K/mm3 (4.0-10.0)
[2021-11-06] MEDS ORDERED: QUEtiapine FUMARATE 25 MG TABLET ONE (09:49)
[2021-11-06] MEDS: MULTIVIT-MINERALS ORAL LIQUID PO SCH (09:58)
[2021-11-06] MEDS: POLYETHYLENE GLYCOL (HEALTHYLAX) 3350 17 GM PACKET PO SCH (09:58)
[2021-11-06] MEDS: ASCORBIC ACID 500 MG TABLET (FP) PO SCH (10:01)
[2021-11-06] MEDS: ENOXAPARIN NA (PORCINE) 40 MG/0.4 ML DISP.SYRIN SQ SCH (10:01)
[2021-11-06] MEDS: DOCUSATE SODIUM 100 MG CAPSULE (FP) PO SCH (10:02)
[2021-11-06] MEDS: PANTOPRAZOLE 40 MG TABLET PO SCH (10:02)
[2021-11-06] MEDS: LABETALOL HCL 200 MG TABLET (FP) PO SCH (10:02)
[2021-11-06] MEDS: PSYLLIUM 5.85 GM PACKET PO SCH (10:02)
[2021-11-06] MEDS: guaiFENesin 600 MG TABLET.ER (FP) PO SCH (10:02)
[2021-11-06] MEDS: LISINOPRIL 5 MG TABLET PO SCH (10:04)
[2021-11-06] MEDS: ZINC SULFATE 220 MG CAPSULE (FP) PO SCH (10:04)
[2021-11-06] MEDS: QUEtiapine FUMARATE 50 MG TABLET PO SCH (10:04)
[2021-11-06] MEDS: FLUTICASONE PROP 0.05% 16 GM NASAL SPRAY NS SCH (10:05)
[2021-11-06 10:07] LABS: ALBUMIN 2.7 g/dl (3.4-5.0); BLOOD UREA NITROGEN 12.4 mg/dL (7-18); CALCIUM 9.4 mg/dL (8.5-10.1)
[2021-11-06 10:10] LABS: CREATININE 1.1 mg/dL (0.55-1.3)
[2021-11-06 10:12] LABS: BILIRUBIN,TOTAL 0.4 mg/dL (0.2-1); TOT PROT 7.2 g/dl (6.4-8.2)
[2021-11-06] MEDS: SILVER SULFADIAZINE 1% TOP CREAM 400 GM JAR TP SCH (10:27)
[2021-11-06] MEDS: guaiFENesin/D-M SUGAR-FREE/ACLHOL-FREE 5 ML UNIT DOSE PO PRN (13:30)
[2021-11-06 14:19] VITALS: BP 114/74; PULSE 113; TEMP 97.9
== END 2021-11-06 15:25 | DRG 207 ==
LOC: JER 10:31 → JERBED 11:24 → J4S 21:33 → JICU 09-16 20:14 → J4W 09-17 17:48 → JICU 09-21 23:49 → J4S 10-12 16:19
PROVIDERS: ADMIT Internal Medicine; ATTEND Internal Medicine
PROC: XW033E5 Introduction of Remdesivir Anti-infective into Peripheral Vein, Percutaneous Approach, New Technology Group 5 (ICD-10-PCS; 2021-09-02)
PROC: XW033H5 Introduction of Tocilizumab into Peripheral Vein, Percutaneous Approach, New Technology Group 5 (ICD-10-PCS; 2021-09-02)
PROC: 5A1955Z Respiratory Ventilation, Greater than 96 Consecutive Hours (ICD-10-PCS; principal; 2021-09-21)
PROC: 0BH17EZ Insertion of Endotracheal Airway into Trachea, Via Natural or Artificial Opening (ICD-10-PCS; 2021-09-21)
PROC: 03HC33Z Insertion of Infusion Device into Left Radial Artery, Percutaneous Approach (ICD-10-PCS; 2021-09-22)
PROC: 05H633Z Insertion of Infusion Device into Left Subclavian Vein, Percutaneous Approach (ICD-10-PCS; 2021-09-22)
PROC: B547ZZA Ultrasonography of Left Subclavian Vein, Guidance (ICD-10-PCS; 2021-09-22)
DX: U07.1 COVID-19 (principal); J96.02 Acute respiratory failure with hypercapnia; J96.01 Acute respiratory failure with hypoxia; J12.82 Pneumonia due to coronavirus disease 2019; J15.9 Unspecified bacterial pneumonia; N17.9 Acute kidney failure, unspecified; N39.0 Urinary tract infection, site not specified; I82.409 Acute embolism and thrombosis of unspecified deep veins of unspecified lower extremity; R63.4 Abnormal weight loss; D64.9 Anemia, unspecified; I12.9 Hypertensive chronic kidney disease with stage 1 through stage 4 chronic kidney disease, or unspecified chronic kidney disease; R74.01 Elevation of levels of liver transaminase levels; B96.4 Proteus (mirabilis) (morganii) as the cause of diseases classified elsewhere; E87.6 Hypokalemia; R41.0 Disorientation, unspecified; E87.5 Hyperkalemia; R94.5 Abnormal results of liver function studies; E78.5 Hyperlipidemia, unspecified; B96.1 Klebsiella pneumoniae [K. pneumoniae] as the cause of diseases classified elsewhere; N18.9 Chronic kidney disease, unspecified; D72.829 Elevated white blood cell count, unspecified; J98.2 Interstitial emphysema; I95.9 Hypotension, unspecified; E10.22 Type 1 diabetes mellitus with diabetic chronic kidney disease; H40.9 Unspecified glaucoma; E10.65 Type 1 diabetes mellitus with hyperglycemia; Z79.4 Long term (current) use of insulin
CPT/HCPCS: 36415; 36600; 71045-TC-FY; 71275-TC; 74018-TC-FY; 76775-TC; 80048; 80053; 81003; 82010; 82533; 82550; 82553; 82570; 82728; 82803; 82962; 83036; 83550; 83605; 83615; 83735; 83880; 84100; 84156; 84300; 84439; 84443; 84480; 84484; 85025; 85027; 85379; 85384; 85610; 85651; 85730; 86140; 86480; 86769; 87040; 87070; 87077; 87086; 87186; 87205; 87804; 87899; 93005; 93010; 93306-TC; 93970-TC; 94002; 94010; 94640; 94660; 97116-GP; 97161-GP; 99285-25; C9399; C9803; E0186; G0480; J0131; J1100; J1644; J3262; Q0162; U0003; U0005